=== PATIENT | male | born 1945 | race Caucasian/White ===

== ENCOUNTER 2021-07-27 17:32 | Inpatient (IN) ==
[2021-07-27] MEDS ORDERED: PROMETHAZINE 25 MG/1 ML VIAL IM PRN (22:02)
[2021-07-27] MEDS ORDERED: NICOTINE 21 MG/24 HR PATCH TRANSDERM PRN (22:02)
[2021-07-27] MEDS ORDERED: DOCUSATE SODIUM 100 MG CAPSULE PO PRN (22:02)
[2021-07-27] MEDS ORDERED: GLUCAGON 1 MG VIAL IM PRN (22:02)
[2021-07-27] MEDS ORDERED: hydrALAZINE 20 MG/1 ML VIAL IV PRN (22:02)
[2021-07-27] MEDS ORDERED: MORPHINE 2 MG/1 ML SYRINGE IV PRN (22:02)
[2021-07-27] MEDS ORDERED: diphenhydrAMINE CAP 25 MG CAPSULE PO PRN (22:02)
[2021-07-27] MEDS ORDERED: DEXTROSE 10% 250 ML BAG IV PRN (22:17)
[2021-07-27] MEDS ORDERED: ALBUTEROL INHALER 18 GM INH PRN (22:26)
[2021-07-27 22:43] LABS: Basophils % 0.1 % (0.0-0.8); Hematocrit 36.4 VOL% (42.0-52.0); Hemoglobin 12.3 GM/DL (14.0-18.0); Immature Granulocytes % 0.6 %; Immature Granulocytes Absolute 0.04 #; Lymphocytes # 0.6 10*3/uL (1.4-4.0); Mean Corpuscular HGB Conc 33.8 GM/DL (32-36); Mean Corpuscular Volume 83.5 FL (87-102); Mean Platelet Volume 10.3 FL (9.6-12.0); Monocytes % 3.3 % (1.7-12.7); Platelet Count 235 T/CUMM (130-400); Red Blood Count 4.36 MC/CUMM (3.8-5.5); Red Cell Distribution Width 14.4 % (9.3-17.3); White Blood Count 7.2 T/CUMM (4-12)
[2021-07-27] MEDS: AZITHROMYCIN INJ 500 MG in SODIUM CHLORIDE 0.9% 250 ML IV SCH (23:27)
[2021-07-27] MEDS: HEPARIN 5,000 UNIT/1 ML VIAL SUBCUT SCH (23:29)
[2021-07-27] MEDS: ALBUTEROL INHALER 18 GM INH SCH (23:36)
[2021-07-27 23:40] LABS: Calcium 8.2 MG/DL (8.5-10.1); Potassium 3.8 MMOL/L (3.5-5.1)
[2021-07-27 23:48] LABS: Allen Test Positive
[2021-07-27 23:51] LABS: ABG Base Excess -11.8 MMOL/L (-2.5-2.5); ABG HCO3 15.1 MMOL/L (20-26); ABG Oxygen Saturation 86.6 % (95-100); ABG PCO2 22.9 MM HG (35-48); ABG PH 7.344 (7.35-7.45); ABG PO2 58.5 MM HG (80-95); ABG TCO2 11.2 MMOL/L (23-27)
[2021-07-28 00:06] LABS: Alanine Aminotransferase 25 U/L (16-61); Albumin 2.4 G/DL (3.4-5.0); Alkaline Phosphatase 74 U/L (45-117); Aspartate Amino Transferase 30 U/L (0-37); Bilirubin,Direct < 0.100 MG/DL (0.0-0.20); Bilirubin,Indirect 0.3 MG/DL (0.0-1.0); Bilirubin,Total < 0.39 MG/DL (0.20-1.00); Total Protein 7.1 G/DL (6.4-8.2)
[2021-07-28] MEDS: MEROPENEM 500 MG in SODIUM CHLORIDE 0.9% 100 ML IV SCH ×2 (00:44→01:30)
[2021-07-28] MEDS ORDERED: VANCOMYCIN INJ 1,250 MG in SODIUM CHLORIDE 0.9% 250 ML IV ONE (02:00)
[2021-07-28] MEDS: ALBUTEROL INHALER 18 GM INH SCH ×5 (02:41→19:26)
[2021-07-28 07:11] LABS: Hematocrit 33.9 VOL% (42.0-52.0); Hemoglobin 11.4 GM/DL (14.0-18.0); Immature Granulocytes % 0.8 %; Immature Granulocytes Absolute 0.04 #; Lymphocytes # 0.8 10*3/uL (1.4-4.0); Lymphocytes % 16.1 % (21.2-54.2); Mean Corpuscular HGB Conc 33.6 GM/DL (32-36); Mean Corpuscular Volume 83.7 FL (87-102); Mean Platelet Volume 10.6 FL (9.6-12.0); Monocytes % 5.6 % (1.7-12.7); Neutrophils % 77.5 % (38.7-73.9); Platelet Count 242 T/CUMM (130-400); Red Blood Count 4.05 MC/CUMM (3.8-5.5); Red Cell Distribution Width 14.3 % (9.3-17.3)
[2021-07-28 07:32] LABS: Albumin 2.1 G/DL (3.4-5.0); Bilirubin,Total 1.4 MG/DL (0.20-1.00); Calcium 7.7 MG/DL (8.5-10.1); Potassium 4.2 MMOL/L (3.5-5.1); Total Protein 6.2 G/DL (6.4-8.2)
[2021-07-28] MEDS: DEXAMETHASONE 4 MG/1 ML VIAL IV SCH (10:00)
[2021-07-28] MEDS: HEPARIN 5,000 UNIT/1 ML VIAL SUBCUT SCH ×2 (10:00→22:20)
[2021-07-28] MEDS: CHOLECALCIFEROL 1,000 UNIT TABLET PO SCH (10:01)
[2021-07-28] MEDS: PANTOPRAZOLE 40 MG TABLET PO SCH (10:01)
[2021-07-28] MEDS: ASCORBIC ACID 500 MG TABLET PO SCH ×2 (10:01→22:20)
[2021-07-28] MEDS: ZINC GLUCONATE 50 MG TABLET PO SCH (10:01)
[2021-07-28] MEDS: SODIUM BICARB INJ 50 MEQ in SODIUM CHLORIDE 0.45% 1,000 ML IV SCH ×2 (13:01→22:20)
[2021-07-29] MEDS: ALBUTEROL INHALER 18 GM INH SCH ×7 (00:04→23:06)
[2021-07-29] MEDS: AZITHROMYCIN INJ 500 MG in SODIUM CHLORIDE 0.9% 250 ML IV SCH (00:04)
[2021-07-29] MEDS ORDERED: VANCOMYCIN INJ 1,250 MG in SODIUM CHLORIDE 0.9% 250 ML IV PRN (02:00)
[2021-07-29 02:17] LABS: Bacteria,Urine Occasional /HPF (Few); Bilirubin,Urine Negative (Negative); Blood, Urine Small mg/dL (Negative); Glucose,Urine (UA) Negative (Negative); Hyaline Casts,Urine 1 /LPF (0-3); Ketones,Urine Negative (Negative); Mucus,Urine Occasional /LPF (Occasional); Nitrite,Urine Negative (Negative); Protein,Urine 100 MG/DL; Urine Appearance CLEAR (Clear); Urine Color Yellow (Yellow); Urine Urobilinogen < 2.0 EU/DL (<2.0)
[2021-07-29] MEDS: MEROPENEM 500 MG in SODIUM CHLORIDE 0.9% 100 ML IV SCH (04:13)
[2021-07-29] MEDS: ZINC GLUCONATE 50 MG TABLET PO SCH (08:25)
[2021-07-29] MEDS: DEXAMETHASONE 4 MG/1 ML VIAL IV SCH (08:25)
[2021-07-29] MEDS: ASCORBIC ACID 500 MG TABLET PO SCH ×2 (08:25→21:32)
[2021-07-29 09:07] LABS: Basophils % 0.1 % (0.0-0.8); Hematocrit 33.1 VOL% (42.0-52.0); Hemoglobin 11.2 GM/DL (14.0-18.0); Immature Granulocytes % 0.8 %; Immature Granulocytes Absolute 0.07 #; Lymphocytes # 0.8 10*3/uL (1.4-4.0); Lymphocytes % 9.5 % (21.2-54.2); Mean Corpuscular HGB Conc 33.8 GM/DL (32-36); Mean Platelet Volume 10.9 FL (9.6-12.0); Monocytes % 8.4 % (1.7-12.7); Neutrophils % 81.2 % (38.7-73.9); Platelet Count 284 T/CUMM (130-400); Red Blood Count 3.99 MC/CUMM (3.8-5.5); Red Cell Distribution Width 14.4 % (9.3-17.3); White Blood Count 8.8 T/CUMM (4-12)
[2021-07-29 09:21] LABS: Alanine Aminotransferase 25 U/L (16-61); Albumin 2.1 G/DL (3.4-5.0); Alkaline Phosphatase 68 U/L (45-117); Aspartate Amino Transferase 28 U/L (0-37); Bilirubin,Total < 0.39 MG/DL (0.20-1.00); Blood Urea Nitrogen 104 MG/DL (7-18); Calcium 8.2 MG/DL (8.5-10.1); Carbon Dioxide 18 MMOL/L (21-32); Estimated Glom Filtration Rate 8 ML/MIN; Glucose 120 MG/DL (74-106); Osmolality,Calculated 312.4 MOS/KG (273-304); Potassium 4.1 MMOL/L (3.5-5.1); Sodium 140 MMOL/L (136-145); Total Protein 6.3 G/DL (6.4-8.2)
[2021-07-29] MEDS ORDERED: VANCOMYCIN INJ 1,250 MG in SODIUM CHLORIDE 0.9% 250 ML IV ONE (10:00)
[2021-07-29] MEDS: CHOLECALCIFEROL 1,000 UNIT TABLET PO SCH (10:05)
[2021-07-29] MEDS: HEPARIN 5,000 UNIT/1 ML VIAL SUBCUT SCH ×2 (10:06→21:32)
[2021-07-29] MEDS: PANTOPRAZOLE 40 MG TABLET PO SCH (10:06)
[2021-07-29] MEDS: SODIUM BICARB INJ 50 MEQ in SODIUM CHLORIDE 0.45% 1,000 ML IV SCH (10:58)
[2021-07-29 12:20] LABS: Ferritin 1393.1 ng/mL (26-388)
[2021-07-29] MEDS: FLUTICASONE 50 MCG NASAL SPRAY 16 GM BOTTLE BOTH NARES SCH (21:32)
[2021-07-29] MEDS: ROSUVASTATIN 20 MG TABLET PO SCH (21:32)
[2021-07-30] MEDS: SODIUM BICARB INJ 50 MEQ in SODIUM CHLORIDE 0.45% 1,000 ML IV SCH ×2 (00:40→17:00)
[2021-07-30] MEDS: ALBUTEROL INHALER 18 GM INH SCH ×5 (02:46→18:12)
[2021-07-30] MEDS: MEROPENEM 500 MG in SODIUM CHLORIDE 0.9% 100 ML IV SCH (02:46)
[2021-07-30 05:32] LABS: Basophils % 0.2 % (0.0-0.8); Hematocrit 35.9 VOL% (42.0-52.0); Hemoglobin 12.1 GM/DL (14.0-18.0); Immature Granulocytes % 1.4 %; Immature Granulocytes Absolute 0.15 #; Lymphocytes # 0.7 10*3/uL (1.4-4.0); Lymphocytes % 5.9 % (21.2-54.2); Mean Corpuscular HGB Conc 33.7 GM/DL (32-36); Mean Corpuscular Volume 83.3 FL (87-102); Mean Platelet Volume 11.1 FL (9.6-12.0); Monocytes % 7.4 % (1.7-12.7); Neutrophils % 85.1 % (38.7-73.9); Platelet Count 334 T/CUMM (130-400); Red Blood Count 4.31 MC/CUMM (3.8-5.5); Red Cell Distribution Width 14.3 % (9.3-17.3); White Blood Count 11.1 T/CUMM (4-12)
[2021-07-30 05:57] LABS: Alanine Aminotransferase 33 U/L (16-61); Albumin 1.9 G/DL (3.4-5.0); Alkaline Phosphatase 72 U/L (45-117); Aspartate Amino Transferase 41 U/L (0-37); Bilirubin,Total < 0.39 MG/DL (0.20-1.00); Blood Urea Nitrogen 96 MG/DL (7-18); Calcium 8.1 MG/DL (8.5-10.1); Carbon Dioxide 17 MMOL/L (21-32); Estimated Glom Filtration Rate 9 ML/MIN; Glucose 130 MG/DL (74-106); Osmolality,Calculated 304.8 MOS/KG (273-304); Potassium 3.6 MMOL/L (3.5-5.1); Sodium 137 MMOL/L (136-145); Total Protein 6.1 G/DL (6.4-8.2)
[2021-07-30 05:59] LABS: Ferritin 1535.3 ng/mL (26-388)
[2021-07-30] MEDS: IPRATROPIUM 500 MCG/2.5 ML NEB RESP TX SCH ×2 (08:19→11:24)
[2021-07-30] MEDS ORDERED: CHLORTHALIDONE 25 MG TABLET PO SCH (09:00)
[2021-07-30] MEDS: ZINC GLUCONATE 50 MG TABLET PO SCH (09:42)
[2021-07-30] MEDS: ASPIRIN CHEW 81 MG TABLET PO SCH (09:42)
[2021-07-30] MEDS: amLODIPine 10 MG TABLET PO SCH (09:43)
[2021-07-30] MEDS: CHOLECALCIFEROL 1,000 UNIT TABLET PO SCH (09:43)
[2021-07-30] MEDS: PANTOPRAZOLE 40 MG TABLET PO SCH (09:43)
[2021-07-30] MEDS: ASCORBIC ACID 500 MG TABLET PO SCH ×2 (09:43→21:19)
[2021-07-30] MEDS: HEPARIN 5,000 UNIT/1 ML VIAL SUBCUT SCH ×2 (09:44→21:18)
[2021-07-30] MEDS: DEXAMETHASONE 4 MG/1 ML VIAL IV SCH (09:51)
[2021-07-30] MEDS: FLUTICASONE 50 MCG NASAL SPRAY 16 GM BOTTLE BOTH NARES SCH ×2 (09:53→21:18)
[2021-07-30] MEDS: AZITHROMYCIN 250 MG TABLET PO SCH (15:04)
[2021-07-30] MEDS: cefTRIAXone 1,000 MG in SODIUM CHLORIDE 0.9% 100 ML IV SCH (15:04)
[2021-07-30 15:18] LABS: ABG Base Excess -5.9 MMOL/L (-2.5-2.5); ABG HCO3 19.5 MMOL/L (20-26); ABG Oxygen Saturation 87.7 % (95-100); ABG PCO2 26.2 MM HG (35-48); ABG PH 7.425 (7.35-7.45); ABG PO2 58.4 MM HG (80-95); ABG TCO2 15.4 MMOL/L (23-27)
[2021-07-30] MEDS ORDERED: BARICITINIB 2 MG TABLET PO SCH (16:00)
[2021-07-30] MEDS ORDERED: ALBUTEROL/IPRATROPIUM 3 ML NEB RESP TX ONE (17:06)
[2021-07-30] MEDS: SODIUM CHLORIDE 0.9% 1,000 ML IV SCH (18:25)
[2021-07-30] MEDS: ROSUVASTATIN 20 MG TABLET PO SCH (21:17)
[2021-07-31] MEDS: ALBUTEROL INHALER 18 GM INH SCH ×7 (00:05→23:50)
[2021-07-31 05:45] LABS: Basophils % 0.1 % (0.0-0.8); Hematocrit 34.2 VOL% (42.0-52.0); Hemoglobin 11.6 GM/DL (14.0-18.0); Immature Granulocytes % 1.9 %; Immature Granulocytes Absolute 0.22 #; Lymphocytes # 0.7 10*3/uL (1.4-4.0); Lymphocytes % 5.6 % (21.2-54.2); Mean Corpuscular HGB Conc 33.9 GM/DL (32-36); Mean Corpuscular Volume 83.2 FL (87-102); Mean Platelet Volume 10.4 FL (9.6-12.0); Monocytes % 7.2 % (1.7-12.7); Neutrophils % 85.2 % (38.7-73.9); Platelet Count 347 T/CUMM (130-400); Red Blood Count 4.11 MC/CUMM (3.8-5.5); Red Cell Distribution Width 14.3 % (9.3-17.3); White Blood Count 11.9 T/CUMM (4-12)
[2021-07-31] MEDS: guaiFENesin/DM ER 600-30 MG TABLET PO PRN (06:14)
[2021-07-31 06:44] LABS: Albumin 1.9 G/DL (3.4-5.0); Bilirubin,Total 0.5 MG/DL (0.20-1.00); Calcium 8.2 MG/DL (8.5-10.1); Osmolality,Calculated 311.1 MOS/KG (273-304); Potassium 3.6 MMOL/L (3.5-5.1); Total Protein 6.2 G/DL (6.4-8.2)
[2021-07-31] MEDS: HEPARIN 5,000 UNIT/1 ML VIAL SUBCUT SCH ×2 (09:19→20:19)
[2021-07-31] MEDS: DEXAMETHASONE 4 MG/1 ML VIAL IV SCH (09:20)
[2021-07-31] MEDS: AZITHROMYCIN 250 MG TABLET PO SCH (09:21)
[2021-07-31] MEDS: ASCORBIC ACID 500 MG TABLET PO SCH ×2 (09:21→20:18)
[2021-07-31] MEDS: ASPIRIN CHEW 81 MG TABLET PO SCH (09:21)
[2021-07-31] MEDS: CHOLECALCIFEROL 1,000 UNIT TABLET PO SCH (09:21)
[2021-07-31] MEDS: FLUTICASONE 50 MCG NASAL SPRAY 16 GM BOTTLE BOTH NARES SCH ×2 (09:21→21:18)
[2021-07-31] MEDS: ZINC GLUCONATE 50 MG TABLET PO SCH (09:21)
[2021-07-31] MEDS: SODIUM BICARBONATE 650 MG TABLET PO SCH ×3 (09:21→20:18)
[2021-07-31] MEDS: PANTOPRAZOLE 40 MG TABLET PO SCH (09:22)
[2021-07-31] MEDS: amLODIPine 10 MG TABLET PO SCH (09:22)
[2021-07-31] MEDS: cefTRIAXone 1,000 MG in SODIUM CHLORIDE 0.9% 100 ML IV SCH (09:27)
[2021-07-31] MEDS: SODIUM CHLORIDE 0.9% 1,000 ML IV SCH (18:37)
[2021-07-31] MEDS: ROSUVASTATIN 20 MG TABLET PO SCH (20:18)
[2021-08-01] MEDS: ALBUTEROL INHALER 18 GM INH SCH ×6 (03:15→23:05)
[2021-08-01 05:35] LABS: Basophils % 0.1 % (0.0-0.8); Hematocrit 33.2 VOL% (42.0-52.0); Hemoglobin 11.1 GM/DL (14.0-18.0); Immature Granulocytes % 2.6 %; Immature Granulocytes Absolute 0.32 #; Lymphocytes # 0.9 10*3/uL (1.4-4.0); Lymphocytes % 6.9 % (21.2-54.2); Mean Corpuscular HGB Conc 33.4 GM/DL (32-36); Mean Corpuscular Volume 83.8 FL (87-102); Mean Platelet Volume 10.8 FL (9.6-12.0); Monocytes % 8.5 % (1.7-12.7); Neutrophils % 81.9 % (38.7-73.9); Platelet Count 376 T/CUMM (130-400); Red Blood Count 3.96 MC/CUMM (3.8-5.5); Red Cell Distribution Width 14.4 % (9.3-17.3); White Blood Count 12.3 T/CUMM (4-12)
[2021-08-01 06:15] LABS: Ferritin 1500.7 ng/mL (26-388)
[2021-08-01 06:16] LABS: Alanine Aminotransferase 93 U/L (16-61); Albumin 1.8 G/DL (3.4-5.0); Alkaline Phosphatase 85 U/L (45-117); Aspartate Amino Transferase 62 U/L (0-37); Bilirubin,Total < 0.39 MG/DL (0.20-1.00); Blood Urea Nitrogen 91 MG/DL (7-18); Calcium 8.2 MG/DL (8.5-10.1); Carbon Dioxide 20 MMOL/L (21-32); Estimated Glom Filtration Rate 12 ML/MIN; Glucose 113 MG/DL (74-106); Osmolality,Calculated 311.1 MOS/KG (273-304); Potassium 3.5 MMOL/L (3.5-5.1); Sodium 142 MMOL/L (136-145); Total Protein 5.9 G/DL (6.4-8.2)
[2021-08-01] MEDS: ZINC GLUCONATE 50 MG TABLET PO SCH (08:53)
[2021-08-01] MEDS: ASCORBIC ACID 500 MG TABLET PO SCH ×2 (08:53→20:43)
[2021-08-01] MEDS: ASPIRIN CHEW 81 MG TABLET PO SCH (08:53)
[2021-08-01] MEDS: CHOLECALCIFEROL 1,000 UNIT TABLET PO SCH (08:53)
[2021-08-01] MEDS: HEPARIN 5,000 UNIT/1 ML VIAL SUBCUT SCH ×2 (08:53→20:43)
[2021-08-01] MEDS: SODIUM BICARBONATE 650 MG TABLET PO SCH ×3 (08:53→20:43)
[2021-08-01] MEDS: amLODIPine 10 MG TABLET PO SCH (08:54)
[2021-08-01] MEDS: AZITHROMYCIN 250 MG TABLET PO SCH (08:54)
[2021-08-01] MEDS: PANTOPRAZOLE 40 MG TABLET PO SCH (08:54)
[2021-08-01] MEDS: DEXAMETHASONE 4 MG/1 ML VIAL IV SCH (08:55)
[2021-08-01] MEDS: cefTRIAXone 1,000 MG in SODIUM CHLORIDE 0.9% 100 ML IV SCH (09:11)
[2021-08-01] MEDS: FLUTICASONE 50 MCG NASAL SPRAY 16 GM BOTTLE BOTH NARES SCH ×2 (10:33→20:43)
[2021-08-01] MEDS: SODIUM CHLORIDE 0.9% 1,000 ML IV SCH (11:41)
[2021-08-01] MEDS: CLORAZEPATE 3.75 MG TABLET PO PRN (13:08)
[2021-08-01] MEDS: ROSUVASTATIN 20 MG TABLET PO SCH (20:43)
[2021-08-02] MEDS: CLORAZEPATE 3.75 MG TABLET PO PRN ×2 (00:56→08:58)
[2021-08-02] MEDS: ALBUTEROL INHALER 18 GM INH SCH ×6 (03:28→22:00)
[2021-08-02 06:34] LABS: Basophils % 0.1 % (0.0-0.8); Hematocrit 34.7 VOL% (42.0-52.0); Hemoglobin 11.2 GM/DL (14.0-18.0); Immature Granulocytes % 2.7 %; Immature Granulocytes Absolute 0.38 #; Lymphocytes # 0.9 10*3/uL (1.4-4.0); Lymphocytes % 6.3 % (21.2-54.2); Mean Corpuscular HGB Conc 32.3 GM/DL (32-36); Mean Corpuscular Volume 86.5 FL (87-102); Mean Platelet Volume 11.3 FL (9.6-12.0); Monocytes % 7.3 % (1.7-12.7); Neutrophils % 83.6 % (38.7-73.9); Platelet Count 397 T/CUMM (130-400); Red Blood Count 4.01 MC/CUMM (3.8-5.5); Red Cell Distribution Width 14.5 % (9.3-17.3); White Blood Count 14.1 T/CUMM (4-12)
[2021-08-02 06:53] LABS: Alanine Aminotransferase 105 U/L (16-61); Albumin 1.9 G/DL (3.4-5.0); Alkaline Phosphatase 87 U/L (45-117); Aspartate Amino Transferase 62 U/L (0-37); Bilirubin,Total < 0.39 MG/DL (0.20-1.00); Blood Urea Nitrogen 90 MG/DL (7-18); Carbon Dioxide 23 MMOL/L (21-32); Estimated Glom Filtration Rate 14 ML/MIN; Glucose 100 MG/DL (74-106); Potassium 3.7 MMOL/L (3.5-5.1); Sodium 143 MMOL/L (136-145); Total Protein 6.3 G/DL (6.4-8.2)
[2021-08-02 06:55] LABS: Ferritin 1538.7 ng/mL (26-388)
[2021-08-02] MEDS: HEPARIN 5,000 UNIT/1 ML VIAL SUBCUT SCH ×2 (08:56→20:30)
[2021-08-02] MEDS: ASCORBIC ACID 500 MG TABLET PO SCH ×2 (08:57→20:28)
[2021-08-02] MEDS: CHOLECALCIFEROL 1,000 UNIT TABLET PO SCH (08:57)
[2021-08-02] MEDS: PANTOPRAZOLE 40 MG TABLET PO SCH (08:57)
[2021-08-02] MEDS: SODIUM BICARBONATE 650 MG TABLET PO SCH ×2 (08:57→20:28)
[2021-08-02] MEDS: AZITHROMYCIN 250 MG TABLET PO SCH (08:58)
[2021-08-02] MEDS: ASPIRIN CHEW 81 MG TABLET PO SCH (08:58)
[2021-08-02] MEDS: amLODIPine 10 MG TABLET PO SCH (08:58)
[2021-08-02] MEDS: FLUTICASONE 50 MCG NASAL SPRAY 16 GM BOTTLE BOTH NARES SCH ×2 (08:58→20:28)
[2021-08-02] MEDS: ZINC GLUCONATE 50 MG TABLET PO SCH (08:58)
[2021-08-02] MEDS: DEXAMETHASONE 4 MG/1 ML VIAL IV SCH (08:58)
[2021-08-02] MEDS: cefTRIAXone 1,000 MG in SODIUM CHLORIDE 0.9% 100 ML IV SCH (09:36)
[2021-08-02] MEDS: CLORAZEPATE 3.75 MG TABLET PO SCH ×2 (15:02→20:28)
[2021-08-02] MEDS: SODIUM CHLORIDE 0.9% 1,000 ML IV SCH (15:03)
[2021-08-02] MEDS: ROSUVASTATIN 20 MG TABLET PO SCH (20:28)
[2021-08-02 21:31] LABS: Specimen Source SPUTUM
[2021-08-02] MEDS ORDERED: ALPRAZolam 0.5 MG TABLET PO ONE (23:49)
[2021-08-03] MEDS: ALBUTEROL INHALER 18 GM INH SCH ×7 (00:22→22:13)
[2021-08-03 05:02] LABS: ABG Base Excess -0.7 MMOL/L (-2.5-2.5); ABG HCO3 23.8 MMOL/L (20-26); ABG Oxygen Saturation 94.4 % (95-100); ABG PCO2 36.3 MM HG (35-48); ABG PH 7.418 (7.35-7.45); ABG PO2 80.5 MM HG (80-95); ABG TCO2 20.8 MMOL/L (23-27)
[2021-08-03 05:58] LABS: Basophils % 0.1 % (0.0-0.8); Eosinophils % 0.1 % (0.00-10.9); Hematocrit 31.5 VOL% (42.0-52.0); Hemoglobin 10.2 GM/DL (14.0-18.0); Immature Granulocytes % 3.1 %; Immature Granulocytes Absolute 0.44 #; Lymphocytes # 0.8 10*3/uL (1.4-4.0); Lymphocytes % 5.8 % (21.2-54.2); Mean Corpuscular HGB Conc 32.4 GM/DL (32-36); Mean Platelet Volume 11.2 FL (9.6-12.0); Monocytes % 5.6 % (1.7-12.7); Neutrophils % 85.3 % (38.7-73.9); Platelet Count 404 T/CUMM (130-400); Red Blood Count 3.62 MC/CUMM (3.8-5.5); Red Cell Distribution Width 14.4 % (9.3-17.3); White Blood Count 14.2 T/CUMM (4-12)
[2021-08-03 06:17] LABS: Ferritin 1170.8 ng/mL (26-388)
[2021-08-03 06:32] LABS: Alanine Aminotransferase 86 U/L (16-61); Albumin 1.9 G/DL (3.4-5.0); Alkaline Phosphatase 81 U/L (45-117); Aspartate Amino Transferase 41 U/L (0-37); Bilirubin,Total < 0.39 MG/DL (0.20-1.00); Blood Urea Nitrogen 89 MG/DL (7-18); Calcium 8.3 MG/DL (8.5-10.1); Carbon Dioxide 23 MMOL/L (21-32); Estimated Glom Filtration Rate 16 ML/MIN; Glucose 95 MG/DL (74-106); Osmolality,Calculated 318.4 MOS/KG (273-304); Potassium 4.3 MMOL/L (3.5-5.1); Sodium 147 MMOL/L (136-145); Total Protein 5.5 G/DL (6.4-8.2)
[2021-08-03] MEDS: HEPARIN 5,000 UNIT/1 ML VIAL SUBCUT SCH ×2 (09:12→20:05)
[2021-08-03] MEDS: DEXAMETHASONE 4 MG/1 ML VIAL IV SCH (09:13)
[2021-08-03] MEDS: CHOLECALCIFEROL 1,000 UNIT TABLET PO SCH (09:14)
[2021-08-03] MEDS: SODIUM BICARBONATE 650 MG TABLET PO SCH ×2 (09:14→20:04)
[2021-08-03] MEDS: CLORAZEPATE 3.75 MG TABLET PO SCH ×3 (09:14→20:04)
[2021-08-03] MEDS: cefTRIAXone 1,000 MG in SODIUM CHLORIDE 0.9% 100 ML IV SCH (09:14)
[2021-08-03] MEDS: ASPIRIN CHEW 81 MG TABLET PO SCH (09:15)
[2021-08-03] MEDS: ZINC GLUCONATE 50 MG TABLET PO SCH (09:15)
[2021-08-03] MEDS: amLODIPine 10 MG TABLET PO SCH (09:15)
[2021-08-03] MEDS: FLUTICASONE 50 MCG NASAL SPRAY 16 GM BOTTLE BOTH NARES SCH ×2 (09:15→20:04)
[2021-08-03] MEDS: ASCORBIC ACID 500 MG TABLET PO SCH ×2 (09:15→20:04)
[2021-08-03] MEDS: PANTOPRAZOLE 40 MG TABLET PO SCH (09:15)
[2021-08-03] MEDS: AZITHROMYCIN 250 MG TABLET PO SCH (09:15)
[2021-08-03] MEDS: SODIUM CHLORIDE 0.9% 1,000 ML IV SCH (13:10)
[2021-08-03] MEDS: ROSUVASTATIN 20 MG TABLET PO SCH (20:04)
[2021-08-04] MEDS: ALBUTEROL INHALER 18 GM INH SCH ×6 (02:15→22:25)
[2021-08-04] MEDS: HEPARIN 5,000 UNIT/1 ML VIAL SUBCUT SCH ×2 (09:29→20:07)
[2021-08-04] MEDS: cefTRIAXone 1,000 MG in SODIUM CHLORIDE 0.9% 100 ML IV SCH (09:29)
[2021-08-04] MEDS: DEXAMETHASONE 4 MG/1 ML VIAL IV SCH (09:30)
[2021-08-04] MEDS: ZINC GLUCONATE 50 MG TABLET PO SCH (09:30)
[2021-08-04] MEDS: ASPIRIN CHEW 81 MG TABLET PO SCH (09:30)
[2021-08-04] MEDS: PANTOPRAZOLE 40 MG TABLET PO SCH (09:30)
[2021-08-04] MEDS: ASCORBIC ACID 500 MG TABLET PO SCH ×2 (09:30→20:07)
[2021-08-04] MEDS: SODIUM BICARBONATE 650 MG TABLET PO SCH ×2 (09:30→20:07)
[2021-08-04] MEDS: CHOLECALCIFEROL 1,000 UNIT TABLET PO SCH (09:30)
[2021-08-04] MEDS: amLODIPine 10 MG TABLET PO SCH (09:30)
[2021-08-04] MEDS: CLORAZEPATE 3.75 MG TABLET PO SCH ×3 (09:31→20:06)
[2021-08-04] MEDS: FLUTICASONE 50 MCG NASAL SPRAY 16 GM BOTTLE BOTH NARES SCH ×2 (09:31→20:07)
[2021-08-04] MEDS: SODIUM CHLORIDE 0.9% 1,000 ML IV SCH (11:34)
[2021-08-04] MEDS: ROSUVASTATIN 20 MG TABLET PO SCH (20:06)
[2021-08-05] MEDS: ALBUTEROL INHALER 18 GM INH SCH ×6 (02:25→22:30)
[2021-08-05] MEDS: guaiFENesin/DM ER 600-30 MG TABLET PO PRN ×2 (02:25→20:09)
[2021-08-05] MEDS: BENZONATATE 100 MG CAPSULE PO PRN (02:25)
[2021-08-05 05:57] LABS: Basophils % 0.1 % (0.0-0.8); Eosinophils % 0.2 % (0.00-10.9); Hematocrit 34.3 VOL% (42.0-52.0); Hemoglobin 10.9 GM/DL (14.0-18.0); Immature Granulocytes Absolute 0.54 #; Lymphocytes # 0.8 10*3/uL (1.4-4.0); Lymphocytes % 4.4 % (21.2-54.2); Mean Corpuscular HGB Conc 31.8 GM/DL (32-36); Mean Corpuscular Volume 87.9 FL (87-102); Mean Platelet Volume 11.3 FL (9.6-12.0); Monocytes % 5.3 % (1.7-12.7); Platelet Count 511 T/CUMM (130-400); Red Cell Distribution Width 14.2 % (9.3-17.3); White Blood Count 17.8 T/CUMM (4-12)
[2021-08-05 06:25] LABS: Calcium 8.5 MG/DL (8.5-10.1); Osmolality,Calculated 314.7 MOS/KG (273-304); Potassium 4.2 MMOL/L (3.5-5.1)
[2021-08-05 06:38] LABS: Hypochromia Slight; Lymphocytes 6 % (20-55); Microcytosis Slight; Platelet Estimate Adequate; Segmented Neutrophils 89 % (50-85); Total Cells Counted 100
[2021-08-05] MEDS: ASCORBIC ACID 500 MG TABLET PO SCH ×2 (08:06→20:09)
[2021-08-05] MEDS: CLORAZEPATE 3.75 MG TABLET PO SCH (08:06)
[2021-08-05] MEDS: ZINC GLUCONATE 50 MG TABLET PO SCH (08:06)
[2021-08-05] MEDS: PANTOPRAZOLE 40 MG TABLET PO SCH (08:06)
[2021-08-05] MEDS: ASPIRIN CHEW 81 MG TABLET PO SCH (08:07)
[2021-08-05] MEDS: CHOLECALCIFEROL 1,000 UNIT TABLET PO SCH (08:07)
[2021-08-05] MEDS: DEXAMETHASONE 4 MG/1 ML VIAL IV SCH (08:07)
[2021-08-05] MEDS: SODIUM BICARBONATE 650 MG TABLET PO SCH ×2 (08:07→20:11)
[2021-08-05] MEDS: amLODIPine 10 MG TABLET PO SCH (08:08)
[2021-08-05] MEDS: HEPARIN 5,000 UNIT/1 ML VIAL SUBCUT SCH ×2 (08:15→20:10)
[2021-08-05] MEDS: cefTRIAXone 1,000 MG in SODIUM CHLORIDE 0.9% 100 ML IV SCH (08:16)
[2021-08-05] MEDS: FLUTICASONE 50 MCG NASAL SPRAY 16 GM BOTTLE BOTH NARES SCH ×2 (10:37→20:10)
[2021-08-05] MEDS: SODIUM CHLORIDE 0.9% 1,000 ML IV SCH (16:31)
[2021-08-05] MEDS: ROSUVASTATIN 20 MG TABLET PO SCH (20:09)
[2021-08-06] MEDS: ALBUTEROL INHALER 18 GM INH SCH ×5 (02:42→18:39)
[2021-08-06 05:18] LABS: Basophils % 0.1 % (0.0-0.8); Eosinophils % 0.1 % (0.00-10.9); Hematocrit 31.9 VOL% (42.0-52.0); Hemoglobin 10.4 GM/DL (14.0-18.0); Immature Granulocytes % 2.7 %; Immature Granulocytes Absolute 0.37 #; Lymphocytes # 0.7 10*3/uL (1.4-4.0); Lymphocytes % 5.1 % (21.2-54.2); Mean Corpuscular HGB Conc 32.6 GM/DL (32-36); Mean Corpuscular Volume 87.4 FL (87-102); Mean Platelet Volume 10.9 FL (9.6-12.0); Platelet Count 481 T/CUMM (130-400); Red Blood Count 3.65 MC/CUMM (3.8-5.5); Red Cell Distribution Width 14.1 % (9.3-17.3); White Blood Count 13.7 T/CUMM (4-12)
[2021-08-06 05:56] LABS: Calcium 8.5 MG/DL (8.5-10.1); Osmolality,Calculated 316.6 MOS/KG (273-304); Potassium 4.3 MMOL/L (3.5-5.1)
[2021-08-06] MEDS: SODIUM CHLORIDE 0.9% 1,000 ML IV SCH (06:18)
[2021-08-06] MEDS ORDERED: DEXAMETHASONE 4 MG/1 ML VIAL IV ONE (11:00)
[2021-08-06] MEDS: DEXAMETHASONE 4 MG/1 ML VIAL IV SCH (11:01)
[2021-08-06] MEDS: ASCORBIC ACID 500 MG TABLET PO SCH ×2 (11:03→20:58)
[2021-08-06] MEDS: SODIUM BICARBONATE 650 MG TABLET PO SCH ×2 (11:03→20:58)
[2021-08-06] MEDS: CHOLECALCIFEROL 1,000 UNIT TABLET PO SCH (11:04)
[2021-08-06] MEDS: PANTOPRAZOLE 40 MG TABLET PO SCH (11:04)
[2021-08-06] MEDS: ZINC GLUCONATE 50 MG TABLET PO SCH (11:04)
[2021-08-06] MEDS: amLODIPine 10 MG TABLET PO SCH (11:04)
[2021-08-06] MEDS: ASPIRIN CHEW 81 MG TABLET PO SCH (11:04)
[2021-08-06] MEDS: HEPARIN 5,000 UNIT/1 ML VIAL SUBCUT SCH ×2 (11:05→20:59)
[2021-08-06] MEDS: FLUTICASONE 50 MCG NASAL SPRAY 16 GM BOTTLE BOTH NARES SCH ×2 (11:05→20:59)
[2021-08-06] MEDS: cefTRIAXone 1,000 MG in SODIUM CHLORIDE 0.9% 100 ML IV SCH (11:07)
[2021-08-06] MEDS: DOCUSATE SODIUM 100 MG CAPSULE PO SCH ×2 (12:35→20:58)
[2021-08-06] MEDS ORDERED: BISACODYL 5 MG TABLET PO ONE (18:24)
[2021-08-06] MEDS: ROSUVASTATIN 20 MG TABLET PO SCH (20:58)
[2021-08-07] MEDS: ALBUTEROL INHALER 18 GM INH SCH ×6 (00:51→20:00)
[2021-08-07] MEDS: POLYETHYLENE GLYCOL POWDER 17 GM PACK PO SCH ×2 (02:45→09:41)
[2021-08-07 05:30] LABS: Basophils % 0.1 % (0.0-0.8); Hematocrit 29.9 VOL% (42.0-52.0); Hemoglobin 9.8 GM/DL (14.0-18.0); Immature Granulocytes % 2.6 %; Immature Granulocytes Absolute 0.36 #; Lymphocytes # 0.7 10*3/uL (1.4-4.0); Lymphocytes % 4.9 % (21.2-54.2); Mean Corpuscular HGB Conc 32.8 GM/DL (32-36); Mean Corpuscular Volume 87.2 FL (87-102); Mean Platelet Volume 11.4 FL (9.6-12.0); Monocytes % 5.1 % (1.7-12.7); Neutrophils % 87.3 % (38.7-73.9); Platelet Count 433 T/CUMM (130-400); Red Blood Count 3.43 MC/CUMM (3.8-5.5); Red Cell Distribution Width 13.8 % (9.3-17.3); White Blood Count 13.6 T/CUMM (4-12)
[2021-08-07 05:52] LABS: Calcium 8.4 MG/DL (8.5-10.1); Osmolality,Calculated 313.8 MOS/KG (273-304); Potassium 4.2 MMOL/L (3.5-5.1)
[2021-08-07 05:53] LABS: Hypochromia 1+; Lymphocytes 4 % (20-55); Microcytosis 1+; Platelet Estimate Adequate; Segmented Neutrophils 93 % (50-85); Total Cells Counted 100
[2021-08-07] MEDS: HEPARIN 5,000 UNIT/1 ML VIAL SUBCUT SCH ×2 (09:39→20:35)
[2021-08-07] MEDS: ZINC GLUCONATE 50 MG TABLET PO SCH (09:40)
[2021-08-07] MEDS: ASPIRIN CHEW 81 MG TABLET PO SCH (09:40)
[2021-08-07] MEDS: PANTOPRAZOLE 40 MG TABLET PO SCH (09:40)
[2021-08-07] MEDS: ASCORBIC ACID 500 MG TABLET PO SCH ×2 (09:40→20:29)
[2021-08-07] MEDS: CHOLECALCIFEROL 1,000 UNIT TABLET PO SCH (09:40)
[2021-08-07] MEDS: predniSONE 20 MG TABLET PO SCH (09:40)
[2021-08-07] MEDS: amLODIPine 10 MG TABLET PO SCH (09:40)
[2021-08-07] MEDS: SODIUM BICARBONATE 650 MG TABLET PO SCH ×2 (09:40→20:29)
[2021-08-07] MEDS: FLUTICASONE 50 MCG NASAL SPRAY 16 GM BOTTLE BOTH NARES SCH ×2 (09:42→20:32)
[2021-08-07] MEDS: DOCUSATE SODIUM 100 MG CAPSULE PO SCH ×2 (09:44→20:29)
[2021-08-07] MEDS ORDERED: POLYETHYLENE GLYCOL POWDER 17 GM PACK PO SCH (11:35)
[2021-08-07] MEDS: ROSUVASTATIN 20 MG TABLET PO SCH (20:29)
[2021-08-08] MEDS: SODIUM CHLORIDE 0.9% 1,000 ML IV SCH (00:31)
[2021-08-08] MEDS: ALBUTEROL INHALER 18 GM INH SCH ×4 (04:00→10:23)
[2021-08-08 05:25] LABS: Basophils % 0.1 % (0.0-0.8); Eosinophils % 0.1 % (0.00-10.9); Hematocrit 30.7 VOL% (42.0-52.0); Hemoglobin 9.9 GM/DL (14.0-18.0); Immature Granulocytes % 2.5 %; Immature Granulocytes Absolute 0.34 #; Lymphocytes # 0.9 10*3/uL (1.4-4.0); Lymphocytes % 6.7 % (21.2-54.2); Mean Corpuscular HGB Conc 32.2 GM/DL (32-36); Mean Corpuscular Volume 87.2 FL (87-102); Mean Platelet Volume 11.1 FL (9.6-12.0); Monocytes % 5.5 % (1.7-12.7); Neutrophils % 85.1 % (38.7-73.9); Platelet Count 436 T/CUMM (130-400); Red Blood Count 3.52 MC/CUMM (3.8-5.5); Red Cell Distribution Width 13.7 % (9.3-17.3); White Blood Count 13.6 T/CUMM (4-12)
[2021-08-08 05:59] LABS: Calcium 8.8 MG/DL (8.5-10.1); Osmolality,Calculated 304.3 MOS/KG (273-304); Potassium 4.6 MMOL/L (3.5-5.1)
[2021-08-08] MEDS: POLYETHYLENE GLYCOL POWDER 17 GM PACK PO SCH (10:10)
[2021-08-08] MEDS: HEPARIN 5,000 UNIT/1 ML VIAL SUBCUT SCH ×2 (10:11→21:00)
[2021-08-08] MEDS: CHOLECALCIFEROL 1,000 UNIT TABLET PO SCH (10:11)
[2021-08-08] MEDS: SODIUM BICARBONATE 650 MG TABLET PO SCH ×2 (10:11→21:04)
[2021-08-08] MEDS: ZINC GLUCONATE 50 MG TABLET PO SCH (10:11)
[2021-08-08] MEDS: ASCORBIC ACID 500 MG TABLET PO SCH ×2 (10:11→21:05)
[2021-08-08] MEDS: ASPIRIN CHEW 81 MG TABLET PO SCH (10:12)
[2021-08-08] MEDS: PANTOPRAZOLE 40 MG TABLET PO SCH (10:12)
[2021-08-08] MEDS: DOCUSATE SODIUM 100 MG CAPSULE PO SCH ×2 (10:12→21:04)
[2021-08-08] MEDS: FLUTICASONE 50 MCG NASAL SPRAY 16 GM BOTTLE BOTH NARES SCH ×2 (10:12→21:05)
[2021-08-08] MEDS: predniSONE 20 MG TABLET PO SCH (10:12)
[2021-08-08] MEDS: amLODIPine 10 MG TABLET PO SCH (10:22)
[2021-08-08] MEDS ORDERED: LACTULOSE 20 GM/30 ML UDCUP PO PRN (13:32)
[2021-08-08] MEDS: ALBUTEROL/IPRATROPIUM 3 ML NEB RESP TX SCH ×3 (18:18→23:42)
[2021-08-08] MEDS: BUDESONIDE 0.25 MG/2 ML NEB RESP TX SCH (19:22)
[2021-08-08] MEDS: ROSUVASTATIN 20 MG TABLET PO SCH (21:04)
[2021-08-09] MEDS: ALBUTEROL/IPRATROPIUM 3 ML NEB RESP TX SCH ×5 (03:42→18:06)
[2021-08-09 04:32] LABS: Basophils % 0.1 % (0.0-0.8); Eosinophils % 0.2 % (0.00-10.9); Hematocrit 30.8 VOL% (42.0-52.0); Immature Granulocytes % 2.5 %; Immature Granulocytes Absolute 0.35 #; Lymphocytes % 6.9 % (21.2-54.2); Mean Corpuscular HGB Conc 32.5 GM/DL (32-36); Mean Corpuscular Volume 86.8 FL (87-102); Mean Platelet Volume 10.6 FL (9.6-12.0); Monocytes % 5.7 % (1.7-12.7); Neutrophils % 84.6 % (38.7-73.9); Platelet Count 441 T/CUMM (130-400); Red Blood Count 3.55 MC/CUMM (3.8-5.5); Red Cell Distribution Width 13.4 % (9.3-17.3); White Blood Count 13.9 T/CUMM (4-12)
[2021-08-09 05:18] LABS: Calcium 8.6 MG/DL (8.5-10.1); Osmolality,Calculated 304.3 MOS/KG (273-304); Potassium 4.6 MMOL/L (3.5-5.1)
[2021-08-09] MEDS ORDERED: PROMETHAZINE 25 MG/1 ML VIAL IM ONE (07:00)
[2021-08-09] MEDS ORDERED: MEPERIDINE 50 MG/1 ML VIAL IV ONE (07:00)
[2021-08-09] MEDS: BUDESONIDE 0.25 MG/2 ML NEB RESP TX SCH ×2 (07:25→18:06)
[2021-08-09] MEDS ORDERED: LIDOCAINE 2% VISCOUS 100 ML BOTTLE SWISH/SPIT ONE (07:30)
[2021-08-09] MEDS ORDERED: LIDOCAINE 1% 20 ML VIAL MISC INJ ONE (07:30)
[2021-08-09] MEDS ORDERED: MIDAZOLAM 2 MG/2 ML VIAL IV ONE (07:30)
[2021-08-09] MEDS ORDERED: LIDOCAINE 2% 20 ML VIAL RESP TX ONE (07:30)
[2021-08-09] MEDS: HEPARIN 5,000 UNIT/1 ML VIAL SUBCUT SCH ×2 (10:30→21:37)
[2021-08-09] MEDS: ASPIRIN CHEW 81 MG TABLET PO SCH (10:31)
[2021-08-09] MEDS: ASCORBIC ACID 500 MG TABLET PO SCH ×2 (10:31→21:06)
[2021-08-09] MEDS: CHOLECALCIFEROL 1,000 UNIT TABLET PO SCH (10:31)
[2021-08-09] MEDS: TAMSULOSIN 0.4 MG CAPSULE PO SCH (10:31)
[2021-08-09] MEDS: FLUTICASONE 50 MCG NASAL SPRAY 16 GM BOTTLE BOTH NARES SCH ×2 (10:32→21:07)
[2021-08-09] MEDS: ZINC GLUCONATE 50 MG TABLET PO SCH (10:32)
[2021-08-09] MEDS: SODIUM BICARBONATE 650 MG TABLET PO SCH ×2 (10:32→21:06)
[2021-08-09] MEDS: predniSONE 20 MG TABLET PO SCH (10:32)
[2021-08-09] MEDS: PANTOPRAZOLE 40 MG TABLET PO SCH (10:32)
[2021-08-09] MEDS: DOCUSATE SODIUM 100 MG CAPSULE PO SCH ×2 (10:32→21:06)
[2021-08-09] MEDS: POLYETHYLENE GLYCOL POWDER 17 GM PACK PO SCH (10:33)
[2021-08-09] MEDS: amLODIPine 10 MG TABLET PO SCH (10:33)
[2021-08-09] MEDS: MEROPENEM 500 MG in SODIUM CHLORIDE 0.9% 100 ML IV SCH (18:41)
[2021-08-09] MEDS: ROSUVASTATIN 20 MG TABLET PO SCH (21:07)
[2021-08-10 04:44] LABS: Basophils % 0.1 % (0.0-0.8); Hematocrit 28.6 VOL% (42.0-52.0); Hemoglobin 9.2 GM/DL (14.0-18.0); Immature Granulocytes Absolute 0.25 #; Lymphocytes # 0.8 10*3/uL (1.4-4.0); Mean Corpuscular HGB Conc 32.2 GM/DL (32-36); Mean Corpuscular Volume 88.3 FL (87-102); Neutrophils % 86.9 % (38.7-73.9); Platelet Count 398 T/CUMM (130-400); Red Blood Count 3.24 MC/CUMM (3.8-5.5); Red Cell Distribution Width 13.6 % (9.3-17.3); White Blood Count 12.5 T/CUMM (4-12)
[2021-08-10] MEDS: ALBUTEROL/IPRATROPIUM 3 ML NEB RESP TX SCH ×6 (04:47→23:55)
[2021-08-10 05:09] LABS: Calcium 8.6 MG/DL (8.5-10.1); Osmolality,Calculated 302.5 MOS/KG (273-304); Potassium 5.5 MMOL/L (3.5-5.1)
[2021-08-10] MEDS: MEROPENEM 500 MG in SODIUM CHLORIDE 0.9% 100 ML IV SCH ×2 (06:06→17:30)
[2021-08-10] MEDS: BUDESONIDE 0.25 MG/2 ML NEB RESP TX SCH ×2 (06:57→19:50)
[2021-08-10] MEDS: HEPARIN 5,000 UNIT/1 ML VIAL SUBCUT SCH (09:53)
[2021-08-10] MEDS: ASPIRIN CHEW 81 MG TABLET PO SCH (09:53)
[2021-08-10] MEDS: SODIUM BICARBONATE 650 MG TABLET PO SCH ×2 (09:53→21:38)
[2021-08-10] MEDS: POLYETHYLENE GLYCOL POWDER 17 GM PACK PO SCH (09:54)
[2021-08-10] MEDS: predniSONE 20 MG TABLET PO SCH (09:54)
[2021-08-10] MEDS: TAMSULOSIN 0.4 MG CAPSULE PO SCH (09:54)
[2021-08-10] MEDS: PANTOPRAZOLE 40 MG TABLET PO SCH (09:54)
[2021-08-10] MEDS: amLODIPine 10 MG TABLET PO SCH (09:54)
[2021-08-10] MEDS: DOCUSATE SODIUM 100 MG CAPSULE PO SCH ×2 (09:54→21:38)
[2021-08-10] MEDS: ZINC GLUCONATE 50 MG TABLET PO SCH (09:54)
[2021-08-10] MEDS: ASCORBIC ACID 500 MG TABLET PO SCH ×2 (09:54→21:38)
[2021-08-10] MEDS: CHOLECALCIFEROL 1,000 UNIT TABLET PO SCH (09:54)
[2021-08-10] MEDS: FLUTICASONE 50 MCG NASAL SPRAY 16 GM BOTTLE BOTH NARES SCH ×2 (09:55→21:38)
[2021-08-10] MEDS: SODIUM ZIRCONIUM CYCLOSILICATE 10 GM PACK PO SCH (12:13)
[2021-08-10] MEDS: HEPARIN DRIP 25,000 UNITS/500 ML PREMIX IV SCH (18:12)
[2021-08-10] MEDS: ROSUVASTATIN 20 MG TABLET PO SCH (21:38)
[2021-08-10] MEDS: ITRACONAZOLE 100 MG CAPSULE PO SCH (21:38)
[2021-08-10] MEDS: ACETAMINOPHEN 325 MG TABLET PO PRN (23:44)
[2021-08-11 03:24] LABS: Basophils % 0.2 % (0.0-0.8); Eosinophils # 0.1 10*3/uL (0.0-0.87); Eosinophils % 0.7 % (0.00-10.9); Hematocrit 25.1 VOL% (42.0-52.0); Hemoglobin 8.2 GM/DL (14.0-18.0); Immature Granulocytes % 2.6 %; Immature Granulocytes Absolute 0.33 #; Lymphocytes # 0.8 10*3/uL (1.4-4.0); Lymphocytes % 6.6 % (21.2-54.2); Mean Corpuscular HGB Conc 32.7 GM/DL (32-36); Mean Corpuscular Volume 88.4 FL (87-102); Mean Platelet Volume 10.5 FL (9.6-12.0); Monocytes % 6.9 % (1.7-12.7); Platelet Count 326 T/CUMM (130-400); Red Blood Count 2.84 MC/CUMM (3.8-5.5); Red Cell Distribution Width 13.3 % (9.3-17.3); White Blood Count 12.5 T/CUMM (4-12)
[2021-08-11] MEDS: ALBUTEROL/IPRATROPIUM 3 ML NEB RESP TX SCH ×6 (03:31→23:15)
[2021-08-11 03:43] LABS: Osmolality,Calculated 304.1 MOS/KG (273-304); Potassium 4.2 MMOL/L (3.5-5.1)
[2021-08-11] MEDS: BUDESONIDE 0.25 MG/2 ML NEB RESP TX SCH ×2 (07:17→20:00)
[2021-08-11] MEDS ORDERED: FUROSEMIDE 40 MG/4 ML VIAL IV ONE (09:12)
[2021-08-11] MEDS: ASPIRIN CHEW 81 MG TABLET PO SCH (10:15)
[2021-08-11] MEDS: CHOLECALCIFEROL 1,000 UNIT TABLET PO SCH (10:15)
[2021-08-11] MEDS: ITRACONAZOLE 100 MG CAPSULE PO SCH ×2 (10:15→21:31)
[2021-08-11] MEDS: DOCUSATE SODIUM 100 MG CAPSULE PO SCH ×2 (10:15→21:30)
[2021-08-11] MEDS: ZINC GLUCONATE 50 MG TABLET PO SCH (10:15)
[2021-08-11] MEDS: ASCORBIC ACID 500 MG TABLET PO SCH ×2 (10:15→21:31)
[2021-08-11] MEDS: SODIUM BICARBONATE 650 MG TABLET PO SCH ×2 (10:15→21:31)
[2021-08-11] MEDS: PANTOPRAZOLE 40 MG TABLET PO SCH (10:16)
[2021-08-11] MEDS: amLODIPine 10 MG TABLET PO SCH (10:16)
[2021-08-11] MEDS: predniSONE 20 MG TABLET PO SCH (10:16)
[2021-08-11] MEDS: POLYETHYLENE GLYCOL POWDER 17 GM PACK PO SCH (10:17)
[2021-08-11] MEDS: FLUTICASONE 50 MCG NASAL SPRAY 16 GM BOTTLE BOTH NARES SCH ×2 (10:17→21:31)
[2021-08-11] MEDS: SODIUM ZIRCONIUM CYCLOSILICATE 10 GM PACK PO SCH (10:17)
[2021-08-11] MEDS: MEROPENEM 500 MG in SODIUM CHLORIDE 0.9% 100 ML IV SCH ×2 (10:19→21:31)
[2021-08-11] MEDS: HEPARIN DRIP 25,000 UNITS/500 ML PREMIX IV SCH (14:23)
[2021-08-11] MEDS: ROSUVASTATIN 20 MG TABLET PO SCH (21:31)
[2021-08-12] MEDS: ALBUTEROL/IPRATROPIUM 3 ML NEB RESP TX SCH ×5 (03:33→20:25)
[2021-08-12 03:58] LABS: Basophils % 0.1 % (0.0-0.8); Eosinophils % 0.2 % (0.00-10.9); Hematocrit 26.9 VOL% (42.0-52.0); Hemoglobin 8.7 GM/DL (14.0-18.0); Immature Granulocytes % 3.1 %; Immature Granulocytes Absolute 0.38 #; Lymphocytes % 8.2 % (21.2-54.2); Mean Corpuscular HGB Conc 32.3 GM/DL (32-36); Mean Corpuscular Volume 87.6 FL (87-102); Mean Platelet Volume 10.8 FL (9.6-12.0); Monocytes % 6.6 % (1.7-12.7); Neutrophils % 81.8 % (38.7-73.9); Platelet Count 336 T/CUMM (130-400); Red Blood Count 3.07 MC/CUMM (3.8-5.5); Red Cell Distribution Width 13.5 % (9.3-17.3); White Blood Count 12.2 T/CUMM (4-12)
[2021-08-12 04:09] LABS: Calcium 8.3 MG/DL (8.5-10.1); Osmolality,Calculated 298.5 MOS/KG (273-304)
[2021-08-12] MEDS: ACETAMINOPHEN 325 MG TABLET PO PRN (04:28)
[2021-08-12] MEDS: BUDESONIDE 0.25 MG/2 ML NEB RESP TX SCH ×2 (07:10→20:25)
[2021-08-12] MEDS ORDERED: POLYETHYLENE GLYCOL POWDER 17 GM PACK PO PRN (08:43)
[2021-08-12 08:50] LABS: ABG Base Excess 2.6 MMOL/L (-2.5-2.5); ABG HCO3 26.5 MMOL/L (20-26); ABG Oxygen Saturation 82.9 % (95-100); ABG PCO2 37.4 MM HG (35-48); ABG PH 7.457 (7.35-7.45); ABG PO2 47.3 MM HG (80-95); ABG TCO2 24.3 MMOL/L (23-27); Pt O2 Delivery Device Other
[2021-08-12 09:18] LABS: ABG Base Excess 1.7 MMOL/L (-2.5-2.5); ABG HCO3 25.2 MMOL/L (20-26); ABG Oxygen Saturation 82.5 % (95-100); ABG PCO2 35.2 MM HG (35-48); ABG PH 7.472 (7.35-7.45); ABG PO2 43.9 MM HG (80-95); ABG TCO2 26.2 MMOL/L (23-27); Pt O2 Delivery Device Other
[2021-08-12] MEDS: SODIUM ZIRCONIUM CYCLOSILICATE 10 GM PACK PO SCH (09:47)
[2021-08-12] MEDS: ITRACONAZOLE 100 MG CAPSULE PO SCH ×2 (09:47→21:53)
[2021-08-12] MEDS: ASPIRIN CHEW 81 MG TABLET PO SCH (09:48)
[2021-08-12] MEDS: predniSONE 20 MG TABLET PO SCH (09:49)
[2021-08-12] MEDS: amLODIPine 10 MG TABLET PO SCH (09:49)
[2021-08-12] MEDS: ASCORBIC ACID 500 MG TABLET PO SCH ×2 (09:49→21:53)
[2021-08-12] MEDS: ZINC GLUCONATE 50 MG TABLET PO SCH (09:49)
[2021-08-12] MEDS: CHOLECALCIFEROL 1,000 UNIT TABLET PO SCH (09:49)
[2021-08-12] MEDS: DOCUSATE SODIUM 100 MG CAPSULE PO SCH ×2 (09:49→21:52)
[2021-08-12] MEDS: PANTOPRAZOLE 40 MG TABLET PO SCH (09:49)
[2021-08-12] MEDS: MEROPENEM 500 MG in SODIUM CHLORIDE 0.9% 100 ML IV SCH ×2 (09:50→21:53)
[2021-08-12] MEDS: FLUTICASONE 50 MCG NASAL SPRAY 16 GM BOTTLE BOTH NARES SCH ×2 (09:50→21:52)
[2021-08-12] MEDS: SODIUM BICARBONATE 650 MG TABLET PO SCH (10:25)
[2021-08-12] MEDS ORDERED: FUROSEMIDE 40 MG/4 ML VIAL IV ONE (14:56)
[2021-08-12] MEDS: HEPARIN DRIP 25,000 UNITS/500 ML PREMIX IV SCH (16:45)
[2021-08-12] MEDS: ROSUVASTATIN 20 MG TABLET PO SCH (21:52)
[2021-08-13] MEDS: ALBUTEROL/IPRATROPIUM 3 ML NEB RESP TX SCH ×7 (00:04→23:20)
[2021-08-13] MEDS: ACETAMINOPHEN 325 MG TABLET PO PRN ×2 (00:46→13:01)
[2021-08-13 03:17] LABS: Eosinophils % 0.1 % (0.00-10.9); Hematocrit 23.5 VOL% (42.0-52.0); Hemoglobin 7.6 GM/DL (14.0-18.0); Immature Granulocytes % 4.4 %; Immature Granulocytes Absolute 0.45 #; Lymphocytes # 0.8 10*3/uL (1.4-4.0); Lymphocytes % 7.8 % (21.2-54.2); Mean Corpuscular HGB Conc 32.3 GM/DL (32-36); Mean Corpuscular Volume 87.4 FL (87-102); Mean Platelet Volume 10.4 FL (9.6-12.0); Monocytes % 6.1 % (1.7-12.7); Neutrophils % 81.6 % (38.7-73.9); Platelet Count 256 T/CUMM (130-400); Red Blood Count 2.69 MC/CUMM (3.8-5.5); Red Cell Distribution Width 13.4 % (9.3-17.3); White Blood Count 10.2 T/CUMM (4-12)
[2021-08-13 03:48] LABS: Calcium 7.8 MG/DL (8.5-10.1); Osmolality,Calculated 291.8 MOS/KG (273-304); Potassium 3.7 MMOL/L (3.5-5.1)
[2021-08-13] MEDS: BUDESONIDE 0.25 MG/2 ML NEB RESP TX SCH ×2 (07:30→19:10)
[2021-08-13] MEDS: ASCORBIC ACID 500 MG TABLET PO SCH ×2 (09:18→22:20)
[2021-08-13] MEDS: PANTOPRAZOLE 40 MG TABLET PO SCH (09:18)
[2021-08-13] MEDS: DOCUSATE SODIUM 100 MG CAPSULE PO SCH ×2 (09:18→22:20)
[2021-08-13] MEDS: ASPIRIN CHEW 81 MG TABLET PO SCH (09:18)
[2021-08-13] MEDS: ZINC GLUCONATE 50 MG TABLET PO SCH (09:18)
[2021-08-13] MEDS: MEROPENEM 500 MG in SODIUM CHLORIDE 0.9% 100 ML IV SCH ×2 (09:18→22:20)
[2021-08-13] MEDS: predniSONE 20 MG TABLET PO SCH (09:19)
[2021-08-13] MEDS: FLUTICASONE 50 MCG NASAL SPRAY 16 GM BOTTLE BOTH NARES SCH ×2 (09:19→22:20)
[2021-08-13] MEDS: CHOLECALCIFEROL 1,000 UNIT TABLET PO SCH (09:19)
[2021-08-13] MEDS: amLODIPine 10 MG TABLET PO SCH (09:19)
[2021-08-13] MEDS: ITRACONAZOLE 100 MG CAPSULE PO SCH ×2 (09:22→22:20)
[2021-08-13] MEDS: HEPARIN DRIP 25,000 UNITS/500 ML PREMIX IV SCH (17:05)
[2021-08-13] MEDS: ROSUVASTATIN 20 MG TABLET PO SCH (22:20)
[2021-08-14] MEDS: CLORAZEPATE 3.75 MG TABLET PO PRN ×2 (00:09→22:03)
[2021-08-14] MEDS: ALBUTEROL/IPRATROPIUM 3 ML NEB RESP TX SCH ×5 (03:32→20:00)
[2021-08-14 03:45] LABS: Basophils % 0.1 % (0.0-0.8); Eosinophils % 0.2 % (0.00-10.9); Hematocrit 22.2 VOL% (42.0-52.0); Hemoglobin 7.4 GM/DL (14.0-18.0); Immature Granulocytes % 5.3 %; Immature Granulocytes Absolute 0.74 #; Lymphocytes # 1.3 10*3/uL (1.4-4.0); Lymphocytes % 9.4 % (21.2-54.2); Mean Corpuscular HGB Conc 33.3 GM/DL (32-36); Mean Corpuscular Volume 86.7 FL (87-102); Mean Platelet Volume 10.6 FL (9.6-12.0); Monocytes % 7.6 % (1.7-12.7); Neutrophils % 77.4 % (38.7-73.9); Platelet Count 266 T/CUMM (130-400); Red Blood Count 2.56 MC/CUMM (3.8-5.5); Red Cell Distribution Width 13.5 % (9.3-17.3); White Blood Count 13.9 T/CUMM (4-12)
[2021-08-14 04:04] LABS: Lymphocytes 10 % (20-55); Metamyelocytes 1 %; Myelocytes 1 %; Segmented Neutrophils 85 % (50-85); Total Cells Counted 100
[2021-08-14 04:05] LABS: Hypochromia 1+
[2021-08-14 04:06] LABS: Microcytosis 1+; Ovalocytes Slight
[2021-08-14 04:09] LABS: Calcium 7.7 MG/DL (8.5-10.1); Osmolality,Calculated 295.5 MOS/KG (273-304); Potassium 3.6 MMOL/L (3.5-5.1)
[2021-08-14] MEDS ORDERED: ALUM/MAG/SIMETH/LIDO VISC 1:1 30 ML BOTTLE PO ONE (05:47)
[2021-08-14] MEDS: BUDESONIDE 0.25 MG/2 ML NEB RESP TX SCH ×2 (07:07→19:50)
[2021-08-14] MEDS: ITRACONAZOLE 100 MG CAPSULE PO SCH ×2 (09:00→20:44)
[2021-08-14] MEDS: ASCORBIC ACID 500 MG TABLET PO SCH ×2 (09:00→20:44)
[2021-08-14] MEDS: MEROPENEM 500 MG in SODIUM CHLORIDE 0.9% 100 ML IV SCH ×2 (09:00→20:42)
[2021-08-14] MEDS: ASPIRIN CHEW 81 MG TABLET PO SCH (09:01)
[2021-08-14] MEDS: CHOLECALCIFEROL 1,000 UNIT TABLET PO SCH (09:01)
[2021-08-14] MEDS: amLODIPine 10 MG TABLET PO SCH (09:01)
[2021-08-14] MEDS: PANTOPRAZOLE 40 MG TABLET PO SCH (09:01)
[2021-08-14] MEDS: predniSONE 20 MG TABLET PO SCH (09:01)
[2021-08-14] MEDS: ZINC GLUCONATE 50 MG TABLET PO SCH (09:01)
[2021-08-14] MEDS: DOCUSATE SODIUM 100 MG CAPSULE PO SCH ×2 (09:01→20:47)
[2021-08-14] MEDS: FLUTICASONE 50 MCG NASAL SPRAY 16 GM BOTTLE BOTH NARES SCH ×2 (09:01→20:48)
[2021-08-14] MEDS: HEPARIN 5,000 UNIT/1 ML VIAL SUBCUT SCH ×2 (09:14→16:46)
[2021-08-14] MEDS: ROSUVASTATIN 20 MG TABLET PO SCH (20:44)
[2021-08-14] MEDS: ACETAMINOPHEN 325 MG TABLET PO PRN (22:02)
[2021-08-15] MEDS: ALBUTEROL/IPRATROPIUM 3 ML NEB RESP TX SCH ×5 (00:55→18:59)
[2021-08-15] MEDS: HEPARIN 5,000 UNIT/1 ML VIAL SUBCUT SCH ×3 (01:26→20:40)
[2021-08-15 06:46] LABS: Basophils % 0.2 % (0.0-0.8); Eosinophils # 0.2 10*3/uL (0.0-0.87); Eosinophils % 1.7 % (0.00-10.9); Hematocrit 22.8 VOL% (42.0-52.0); Hemoglobin 7.4 GM/DL (14.0-18.0); Immature Granulocytes % 5.5 %; Immature Granulocytes Absolute 0.72 #; Lymphocytes # 1.2 10*3/uL (1.4-4.0); Lymphocytes % 9.5 % (21.2-54.2); Mean Corpuscular HGB Conc 32.5 GM/DL (32-36); Mean Corpuscular Volume 87.4 FL (87-102); Mean Platelet Volume 10.7 FL (9.6-12.0); Monocytes % 7.1 % (1.7-12.7); Platelet Count 265 T/CUMM (130-400); Red Blood Count 2.61 MC/CUMM (3.8-5.5); Red Cell Distribution Width 13.9 % (9.3-17.3)
[2021-08-15 07:05] LABS: Hypochromia 1+; Lymphocytes 9 % (20-55); Microcytosis 1+; Ovalocytes Slight; Platelet Estimate Adequate; Segmented Neutrophils 88 % (50-85); Total Cells Counted 100
[2021-08-15 07:08] LABS: Calcium 8.1 MG/DL (8.5-10.1); Osmolality,Calculated 293.5 MOS/KG (273-304); Potassium 3.7 MMOL/L (3.5-5.1)
[2021-08-15] MEDS: BUDESONIDE 0.25 MG/2 ML NEB RESP TX SCH ×2 (07:30→18:59)
[2021-08-15] MEDS ORDERED: ALBUTEROL/IPRATROPIUM 3 ML NEB RESP TX PRN (07:45)
[2021-08-15] MEDS: CHOLECALCIFEROL 1,000 UNIT TABLET PO SCH (10:37)
[2021-08-15] MEDS: ITRACONAZOLE 100 MG CAPSULE PO SCH ×2 (10:37→20:40)
[2021-08-15] MEDS: ASPIRIN CHEW 81 MG TABLET PO SCH (10:37)
[2021-08-15] MEDS: DOCUSATE SODIUM 100 MG CAPSULE PO SCH ×2 (10:38→20:40)
[2021-08-15] MEDS: ZINC GLUCONATE 50 MG TABLET PO SCH (10:38)
[2021-08-15] MEDS: ASCORBIC ACID 500 MG TABLET PO SCH ×2 (10:38→20:40)
[2021-08-15] MEDS: PANTOPRAZOLE 40 MG TABLET PO SCH (10:39)
[2021-08-15] MEDS: predniSONE 20 MG TABLET PO SCH (10:39)
[2021-08-15] MEDS: amLODIPine 10 MG TABLET PO SCH (10:39)
[2021-08-15] MEDS: MEROPENEM 500 MG in SODIUM CHLORIDE 0.9% 100 ML IV SCH ×2 (10:40→20:40)
[2021-08-15] MEDS: FLUTICASONE 50 MCG NASAL SPRAY 16 GM BOTTLE BOTH NARES SCH ×2 (10:40→20:40)
[2021-08-15] MEDS ORDERED: SODIUM CHLORIDE 0.9% 1,000 ML IV PRN (13:05)
[2021-08-15] MEDS: ROSUVASTATIN 20 MG TABLET PO SCH (20:40)
[2021-08-15] MEDS: traZODone 50 MG TABLET PO SCH (20:40)
[2021-08-16] MEDS: HEPARIN 5,000 UNIT/1 ML VIAL SUBCUT SCH ×3 (04:10→20:45)
[2021-08-16 04:37] LABS: Basophils % 0.2 % (0.0-0.8); Eosinophils % 0.3 % (0.00-10.9); Hematocrit 26.6 VOL% (42.0-52.0); Hemoglobin 8.9 GM/DL (14.0-18.0); Immature Granulocytes % 5.4 %; Immature Granulocytes Absolute 0.68 #; Lymphocytes # 1.1 10*3/uL (1.4-4.0); Lymphocytes % 8.8 % (21.2-54.2); Mean Corpuscular HGB Conc 33.5 GM/DL (32-36); Mean Corpuscular Volume 86.9 FL (87-102); Mean Platelet Volume 12.2 FL (9.6-12.0); Monocytes % 6.7 % (1.7-12.7); Neutrophils % 78.6 % (38.7-73.9); Platelet Count 254 T/CUMM (130-400); Red Blood Count 3.06 MC/CUMM (3.8-5.5); Red Cell Distribution Width 14.8 % (9.3-17.3); White Blood Count 12.7 T/CUMM (4-12)
[2021-08-16 04:59] LABS: Hypochromia 1+; Lymphocytes 5 % (20-55); Microcytosis 1+; Platelet Estimate Adequate; Segmented Neutrophils 90 % (50-85); Total Cells Counted 100
[2021-08-16 05:43] LABS: Potassium 4.9 MMOL/L (3.5-5.1)
[2021-08-16 05:46] LABS: Osmolality,Calculated 293.5 MOS/KG (273-304)
[2021-08-16] MEDS: BUDESONIDE 0.25 MG/2 ML NEB RESP TX SCH ×2 (07:10→19:30)
[2021-08-16] MEDS: ALBUTEROL/IPRATROPIUM 3 ML NEB RESP TX SCH ×3 (07:10→19:20)
[2021-08-16] MEDS: ITRACONAZOLE 100 MG CAPSULE PO SCH ×2 (09:23→20:45)
[2021-08-16] MEDS: PANTOPRAZOLE 40 MG TABLET PO SCH (09:23)
[2021-08-16] MEDS: DOCUSATE SODIUM 100 MG CAPSULE PO SCH ×2 (09:23→20:45)
[2021-08-16] MEDS: ASPIRIN CHEW 81 MG TABLET PO SCH (09:23)
[2021-08-16] MEDS: CHOLECALCIFEROL 1,000 UNIT TABLET PO SCH (09:24)
[2021-08-16] MEDS: predniSONE 20 MG TABLET PO SCH (09:24)
[2021-08-16] MEDS: FLUTICASONE 50 MCG NASAL SPRAY 16 GM BOTTLE BOTH NARES SCH ×2 (09:24→20:45)
[2021-08-16] MEDS: ZINC GLUCONATE 50 MG TABLET PO SCH (09:24)
[2021-08-16] MEDS: ASCORBIC ACID 500 MG TABLET PO SCH ×2 (09:24→20:45)
[2021-08-16] MEDS: amLODIPine 10 MG TABLET PO SCH (09:24)
[2021-08-16] MEDS: MEROPENEM 500 MG in SODIUM CHLORIDE 0.9% 100 ML IV SCH ×2 (09:25→20:45)
[2021-08-16] MEDS: CLORAZEPATE 3.75 MG TABLET PO PRN (11:38)
[2021-08-16] MEDS: traZODone 50 MG TABLET PO SCH (20:45)
[2021-08-16] MEDS: ROSUVASTATIN 20 MG TABLET PO SCH (20:45)
[2021-08-17] MEDS: ACETAMINOPHEN 325 MG TABLET PO PRN (00:30)
[2021-08-17] MEDS: HEPARIN 5,000 UNIT/1 ML VIAL SUBCUT SCH ×3 (03:20→20:22)
[2021-08-17 03:52] LABS: Basophils % 0.2 % (0.0-0.8); Eosinophils # 0.1 10*3/uL (0.0-0.87); Eosinophils % 1.1 % (0.00-10.9); Hematocrit 25.2 VOL% (42.0-52.0); Hemoglobin 7.9 GM/DL (14.0-18.0); Immature Granulocytes % 4.7 %; Immature Granulocytes Absolute 0.55 #; Lymphocytes # 1.2 10*3/uL (1.4-4.0); Lymphocytes % 10.2 % (21.2-54.2); Mean Corpuscular HGB Conc 31.3 GM/DL (32-36); Mean Platelet Volume 10.7 FL (9.6-12.0); Monocytes % 7.6 % (1.7-12.7); Neutrophils % 76.2 % (38.7-73.9); Platelet Count 246 T/CUMM (130-400); Red Cell Distribution Width 14.7 % (9.3-17.3); White Blood Count 11.6 T/CUMM (4-12)
[2021-08-17 04:17] LABS: Calcium 8.3 MG/DL (8.5-10.1); Potassium 4.1 MMOL/L (3.5-5.1)
[2021-08-17 04:25] LABS: Eosinophils 2 % (0-10); Hypochromia 1+; Lymphocytes 13 % (20-55); Microcytosis 1+; Platelet Estimate Adequate; Segmented Neutrophils 80 % (50-85); Total Cells Counted 100
[2021-08-17] MEDS: BUDESONIDE 0.25 MG/2 ML NEB RESP TX SCH ×2 (06:53→18:52)
[2021-08-17] MEDS: ALBUTEROL/IPRATROPIUM 3 ML NEB RESP TX SCH ×3 (06:53→18:52)
[2021-08-17] MEDS: DOCUSATE SODIUM 100 MG CAPSULE PO SCH ×2 (08:45→20:22)
[2021-08-17] MEDS: ASCORBIC ACID 500 MG TABLET PO SCH ×2 (08:45→20:23)
[2021-08-17] MEDS: ZINC GLUCONATE 50 MG TABLET PO SCH (08:45)
[2021-08-17] MEDS: ASPIRIN CHEW 81 MG TABLET PO SCH (08:45)
[2021-08-17] MEDS: PANTOPRAZOLE 40 MG TABLET PO SCH (08:46)
[2021-08-17] MEDS: amLODIPine 10 MG TABLET PO SCH (08:46)
[2021-08-17] MEDS: CHOLECALCIFEROL 1,000 UNIT TABLET PO SCH (08:46)
[2021-08-17] MEDS: ITRACONAZOLE 100 MG CAPSULE PO SCH ×2 (08:46→20:23)
[2021-08-17] MEDS: predniSONE 20 MG TABLET PO SCH (08:46)
[2021-08-17] MEDS: FLUTICASONE 50 MCG NASAL SPRAY 16 GM BOTTLE BOTH NARES SCH ×2 (08:47→20:23)
[2021-08-17] MEDS: ROSUVASTATIN 20 MG TABLET PO SCH (20:22)
[2021-08-17] MEDS: traZODone 50 MG TABLET PO SCH (20:23)
[2021-08-18] MEDS: ACETAMINOPHEN 325 MG TABLET PO PRN ×2 (00:40→23:00)
[2021-08-18] MEDS: HEPARIN 5,000 UNIT/1 ML VIAL SUBCUT SCH ×3 (03:30→20:25)
[2021-08-18 03:52] LABS: Basophils % 0.1 % (0.0-0.8); Eosinophils # 0.1 10*3/uL (0.0-0.87); Hematocrit 26.8 VOL% (42.0-52.0); Hemoglobin 8.6 GM/DL (14.0-18.0); Immature Granulocytes % 3.7 %; Immature Granulocytes Absolute 0.45 #; Lymphocytes # 1.3 10*3/uL (1.4-4.0); Lymphocytes % 10.5 % (21.2-54.2); Mean Corpuscular HGB Conc 32.1 GM/DL (32-36); Mean Corpuscular Volume 87.9 FL (87-102); Mean Platelet Volume 10.4 FL (9.6-12.0); Monocytes % 7.1 % (1.7-12.7); Neutrophils % 77.6 % (38.7-73.9); Platelet Count 290 T/CUMM (130-400); Red Blood Count 3.05 MC/CUMM (3.8-5.5); Red Cell Distribution Width 14.5 % (9.3-17.3)
[2021-08-18 04:21] LABS: Calcium 8.1 MG/DL (8.5-10.1); Osmolality,Calculated 295.3 MOS/KG (273-304); Potassium 4.2 MMOL/L (3.5-5.1)
[2021-08-18] MEDS: BUDESONIDE 0.25 MG/2 ML NEB RESP TX SCH ×2 (07:48→20:00)
[2021-08-18] MEDS: ALBUTEROL/IPRATROPIUM 3 ML NEB RESP TX SCH ×3 (07:48→19:50)
[2021-08-18] MEDS: CHOLECALCIFEROL 1,000 UNIT TABLET PO SCH (08:17)
[2021-08-18] MEDS: predniSONE 20 MG TABLET PO SCH (08:17)
[2021-08-18] MEDS: PANTOPRAZOLE 40 MG TABLET PO SCH (08:17)
[2021-08-18] MEDS: DOCUSATE SODIUM 100 MG CAPSULE PO SCH ×2 (08:17→20:25)
[2021-08-18] MEDS: ASCORBIC ACID 500 MG TABLET PO SCH ×2 (08:17→20:25)
[2021-08-18] MEDS: ZINC GLUCONATE 50 MG TABLET PO SCH (08:17)
[2021-08-18] MEDS: ASPIRIN CHEW 81 MG TABLET PO SCH (08:17)
[2021-08-18] MEDS: amLODIPine 10 MG TABLET PO SCH (08:18)
[2021-08-18] MEDS: FLUTICASONE 50 MCG NASAL SPRAY 16 GM BOTTLE BOTH NARES SCH ×2 (08:19→20:26)
[2021-08-18] MEDS: CLORAZEPATE 3.75 MG TABLET PO PRN (17:33)
[2021-08-18] MEDS: ROSUVASTATIN 20 MG TABLET PO SCH (20:25)
[2021-08-18] MEDS: traZODone 50 MG TABLET PO SCH (20:25)
[2021-08-19] MEDS: HEPARIN 5,000 UNIT/1 ML VIAL SUBCUT SCH (04:15)
[2021-08-19 04:40] LABS: Basophils % 0.2 % (0.0-0.8); Eosinophils # 0.3 10*3/uL (0.0-0.87); Eosinophils % 2.7 % (0.00-10.9); Hematocrit 22.9 VOL% (42.0-52.0); Hemoglobin 7.4 GM/DL (14.0-18.0); Immature Granulocytes % 3.3 %; Lymphocytes # 1.4 10*3/uL (1.4-4.0); Lymphocytes % 11.9 % (21.2-54.2); Mean Corpuscular HGB Conc 32.3 GM/DL (32-36); Mean Corpuscular Volume 88.8 FL (87-102); Mean Platelet Volume 10.4 FL (9.6-12.0); Monocytes % 7.4 % (1.7-12.7); Neutrophils % 74.5 % (38.7-73.9); Platelet Count 273 T/CUMM (130-400); Red Blood Count 2.58 MC/CUMM (3.8-5.5); Red Cell Distribution Width 14.6 % (9.3-17.3)
[2021-08-19 04:50] LABS: Alanine Aminotransferase 46 U/L (16-61); Albumin 1.3 G/DL (3.4-5.0); Alkaline Phosphatase 84 U/L (45-117); Aspartate Amino Transferase 22 U/L (0-37); Bilirubin,Total < 0.39 MG/DL (0.20-1.00); Blood Urea Nitrogen 54 MG/DL (7-18); Calcium 7.9 MG/DL (8.5-10.1); Carbon Dioxide 22 MMOL/L (21-32); Estimated Glom Filtration Rate 35 ML/MIN; Glucose 147 MG/DL (74-106); Osmolality,Calculated 296.4 MOS/KG (273-304); Potassium 3.7 MMOL/L (3.5-5.1); Sodium 140 MMOL/L (136-145); Total Protein 5.3 G/DL (6.4-8.2)
[2021-08-19 05:20] LABS: Band Neutrophils 2 % (0-10); Eosinophils 1 % (0-10); Lymphocytes 18 % (20-55); Metamyelocytes 1 %; Segmented Neutrophils 74 % (50-85); Total Cells Counted 100
[2021-08-19 05:21] LABS: Microcytosis 1+; Ovalocytes Slight; Platelet Estimate Normal
[2021-08-19] MEDS: BUDESONIDE 0.25 MG/2 ML NEB RESP TX SCH ×2 (06:59→20:00)
[2021-08-19] MEDS: ALBUTEROL/IPRATROPIUM 3 ML NEB RESP TX SCH ×3 (06:59→19:50)
[2021-08-19] MEDS: BENZONATATE 100 MG CAPSULE PO PRN (08:23)
[2021-08-19] MEDS: CLORAZEPATE 3.75 MG TABLET PO PRN ×2 (08:23→16:00)
[2021-08-19] MEDS ORDERED: MORPHINE 4 MG/1 ML VIAL IV PRN (09:58)
[2021-08-19] MEDS: CHOLECALCIFEROL 1,000 UNIT TABLET PO SCH (10:05)
[2021-08-19] MEDS: ASPIRIN CHEW 81 MG TABLET PO SCH (10:05)
[2021-08-19] MEDS: ZINC GLUCONATE 50 MG TABLET PO SCH (10:06)
[2021-08-19] MEDS: predniSONE 20 MG TABLET PO SCH ×2 (10:06→11:35)
[2021-08-19] MEDS: PANTOPRAZOLE 40 MG TABLET PO SCH (10:06)
[2021-08-19] MEDS: FLUTICASONE 50 MCG NASAL SPRAY 16 GM BOTTLE BOTH NARES SCH ×2 (10:06→20:04)
[2021-08-19] MEDS: ASCORBIC ACID 500 MG TABLET PO SCH ×2 (10:06→20:04)
[2021-08-19] MEDS: DOCUSATE SODIUM 100 MG CAPSULE PO SCH ×2 (10:06→20:04)
[2021-08-19] MEDS: amLODIPine 10 MG TABLET PO SCH (10:06)
[2021-08-19] MEDS: ROSUVASTATIN 20 MG TABLET PO SCH (20:04)
[2021-08-19] MEDS: traZODone 50 MG TABLET PO SCH (20:04)
[2021-08-20] MEDS: ACETAMINOPHEN 325 MG TABLET PO PRN (01:09)
[2021-08-20 04:39] LABS: Basophils % 0.1 % (0.0-0.8); Eosinophils # 0.6 10*3/uL (0.0-0.87); Eosinophils % 4.9 % (0.00-10.9); Hematocrit 23.9 VOL% (42.0-52.0); Hemoglobin 7.6 GM/DL (14.0-18.0); Immature Granulocytes % 2.4 %; Immature Granulocytes Absolute 0.27 #; Lymphocytes # 1.4 10*3/uL (1.4-4.0); Lymphocytes % 12.8 % (21.2-54.2); Mean Corpuscular HGB Conc 31.8 GM/DL (32-36); Mean Corpuscular Volume 90.5 FL (87-102); Neutrophils % 72.8 % (38.7-73.9); Platelet Count 293 T/CUMM (130-400); Red Blood Count 2.64 MC/CUMM (3.8-5.5); Red Cell Distribution Width 14.9 % (9.3-17.3); White Blood Count 11.2 T/CUMM (4-12)
[2021-08-20 05:00] LABS: Calcium 7.1 MG/DL (8.5-10.1); Osmolality,Calculated 293.3 MOS/KG (273-304); Potassium 4.2 MMOL/L (3.5-5.1)
[2021-08-20] MEDS: ALBUTEROL/IPRATROPIUM 3 ML NEB RESP TX SCH ×3 (07:36→19:50)
[2021-08-20] MEDS: BUDESONIDE 0.25 MG/2 ML NEB RESP TX SCH ×2 (07:36→20:00)
[2021-08-20] MEDS: PANTOPRAZOLE 40 MG TABLET PO SCH (09:25)
[2021-08-20] MEDS: ASCORBIC ACID 500 MG TABLET PO SCH ×2 (09:25→22:15)
[2021-08-20] MEDS: CHOLECALCIFEROL 1,000 UNIT TABLET PO SCH (09:25)
[2021-08-20] MEDS: predniSONE 20 MG TABLET PO SCH (09:25)
[2021-08-20] MEDS: ASPIRIN CHEW 81 MG TABLET PO SCH (09:25)
[2021-08-20] MEDS: amLODIPine 10 MG TABLET PO SCH (09:26)
[2021-08-20] MEDS: ZINC GLUCONATE 50 MG TABLET PO SCH (09:26)
[2021-08-20] MEDS: DOCUSATE SODIUM 100 MG CAPSULE PO SCH ×2 (09:26→22:14)
[2021-08-20] MEDS: FLUTICASONE 50 MCG NASAL SPRAY 16 GM BOTTLE BOTH NARES SCH ×2 (09:26→22:14)
[2021-08-20] MEDS: CLORAZEPATE 3.75 MG TABLET PO PRN (14:55)
[2021-08-20] MEDS: ROSUVASTATIN 20 MG TABLET PO SCH (22:14)
[2021-08-20] MEDS: traZODone 50 MG TABLET PO SCH (22:14)
[2021-08-21] MEDS: ACETAMINOPHEN 325 MG TABLET PO PRN (00:06)
[2021-08-21 03:11] LABS: Basophils % 0.2 % (0.0-0.8); Eosinophils # 0.7 10*3/uL (0.0-0.87); Eosinophils % 5.9 % (0.00-10.9); Hematocrit 24.4 VOL% (42.0-52.0); Hemoglobin 7.6 GM/DL (14.0-18.0); Immature Granulocytes % 2.3 %; Immature Granulocytes Absolute 0.28 #; Lymphocytes # 1.7 10*3/uL (1.4-4.0); Lymphocytes % 13.5 % (21.2-54.2); Mean Corpuscular HGB Conc 31.1 GM/DL (32-36); Mean Corpuscular Volume 91.4 FL (87-102); Mean Platelet Volume 10.4 FL (9.6-12.0); Monocytes % 5.9 % (1.7-12.7); Neutrophils % 72.2 % (38.7-73.9); Platelet Count 331 T/CUMM (130-400); Red Blood Count 2.67 MC/CUMM (3.8-5.5); Red Cell Distribution Width 15.2 % (9.3-17.3); White Blood Count 12.3 T/CUMM (4-12)
[2021-08-21 03:24] LABS: Calcium 8.3 MG/DL (8.5-10.1); Osmolality,Calculated 290.5 MOS/KG (273-304); Potassium 4.2 MMOL/L (3.5-5.1)
[2021-08-21] MEDS: BUDESONIDE 0.25 MG/2 ML NEB RESP TX SCH ×2 (07:10→19:20)
[2021-08-21] MEDS: ALBUTEROL/IPRATROPIUM 3 ML NEB RESP TX SCH ×3 (07:10→19:10)
[2021-08-21] MEDS: CHOLECALCIFEROL 1,000 UNIT TABLET PO SCH (09:47)
[2021-08-21] MEDS: ASPIRIN CHEW 81 MG TABLET PO SCH (09:47)
[2021-08-21] MEDS: DOCUSATE SODIUM 100 MG CAPSULE PO SCH ×2 (09:47→22:34)
[2021-08-21] MEDS: ASCORBIC ACID 500 MG TABLET PO SCH ×2 (09:48→22:00)
[2021-08-21] MEDS: PANTOPRAZOLE 40 MG TABLET PO SCH (09:48)
[2021-08-21] MEDS: FLUTICASONE 50 MCG NASAL SPRAY 16 GM BOTTLE BOTH NARES SCH ×2 (09:48→22:00)
[2021-08-21] MEDS: ZINC GLUCONATE 50 MG TABLET PO SCH (09:48)
[2021-08-21] MEDS: amLODIPine 10 MG TABLET PO SCH (09:50)
[2021-08-21] MEDS: ROSUVASTATIN 20 MG TABLET PO SCH (22:00)
[2021-08-21] MEDS: traZODone 50 MG TABLET PO SCH (22:00)
[2021-08-22] MEDS: ACETAMINOPHEN 325 MG TABLET PO PRN (00:39)
[2021-08-22] MEDS: CLORAZEPATE 3.75 MG TABLET PO PRN ×2 (03:35→11:27)
[2021-08-22 03:39] LABS: Basophils % 0.3 % (0.0-0.8); Eosinophils # 1.4 10*3/uL (0.0-0.87); Eosinophils % 10.6 % (0.00-10.9); Hematocrit 25.1 VOL% (42.0-52.0); Hemoglobin 7.9 GM/DL (14.0-18.0); Immature Granulocytes % 1.9 %; Immature Granulocytes Absolute 0.26 #; Lymphocytes # 1.6 10*3/uL (1.4-4.0); Lymphocytes % 11.8 % (21.2-54.2); Mean Corpuscular HGB Conc 31.5 GM/DL (32-36); Mean Corpuscular Volume 90.3 FL (87-102); Mean Platelet Volume 9.7 FL (9.6-12.0); Monocytes % 6.3 % (1.7-12.7); Neutrophils % 69.1 % (38.7-73.9); Platelet Count 322 T/CUMM (130-400); Red Blood Count 2.78 MC/CUMM (3.8-5.5); Red Cell Distribution Width 15.4 % (9.3-17.3); White Blood Count 13.5 T/CUMM (4-12)
[2021-08-22 04:01] LABS: Calcium 8.1 MG/DL (8.5-10.1); Osmolality,Calculated 292.1 MOS/KG (273-304); Potassium 4.7 MMOL/L (3.5-5.1)
[2021-08-22] MEDS: ALBUTEROL/IPRATROPIUM 3 ML NEB RESP TX SCH ×3 (07:56→19:27)
[2021-08-22] MEDS: BUDESONIDE 0.25 MG/2 ML NEB RESP TX SCH ×2 (07:56→19:27)
[2021-08-22 09:38] LABS: % Iron Saturation 19.6 % (18-50); Ferritin 474.4 ng/mL (26-388); Folate 6.48 NG/ML (5.38-24.0)
[2021-08-22] MEDS: DOCUSATE SODIUM 100 MG CAPSULE PO SCH ×2 (12:19→22:23)
[2021-08-22] MEDS: ASPIRIN CHEW 81 MG TABLET PO SCH (12:19)
[2021-08-22] MEDS: PANTOPRAZOLE 40 MG TABLET PO SCH (12:19)
[2021-08-22] MEDS: amLODIPine 10 MG TABLET PO SCH (12:19)
[2021-08-22] MEDS: ASCORBIC ACID 500 MG TABLET PO SCH ×2 (12:19→21:48)
[2021-08-22] MEDS: CHOLECALCIFEROL 1,000 UNIT TABLET PO SCH (12:19)
[2021-08-22] MEDS: SODIUM CHLORIDE 0.9% 1,000 ML IV SCH (12:20)
[2021-08-22] MEDS: FLUTICASONE 50 MCG NASAL SPRAY 16 GM BOTTLE BOTH NARES SCH ×2 (12:20→21:27)
[2021-08-22] MEDS: ZINC GLUCONATE 50 MG TABLET PO SCH (12:20)
[2021-08-22] MEDS: FERROUS SULFATE 325 MG TABLET PO SCH (15:05)
[2021-08-22] MEDS: traZODone 50 MG TABLET PO SCH (21:48)
[2021-08-22] MEDS: ROSUVASTATIN 20 MG TABLET PO SCH (21:48)
[2021-08-23] MEDS: ALBUTEROL/IPRATROPIUM 3 ML NEB RESP TX SCH ×3 (07:38→20:30)
[2021-08-23] MEDS: BUDESONIDE 0.25 MG/2 ML NEB RESP TX SCH ×2 (07:38→20:30)
[2021-08-23 08:11] LABS: Basophils % 0.2 % (0.0-0.8); Eosinophils # 1.6 10*3/uL (0.0-0.87); Hematocrit 27.7 VOL% (42.0-52.0); Hemoglobin 8.8 GM/DL (14.0-18.0); Immature Granulocytes % 2.1 %; Immature Granulocytes Absolute 0.27 #; Lymphocytes # 1.5 10*3/uL (1.4-4.0); Lymphocytes % 11.3 % (21.2-54.2); Mean Corpuscular HGB Conc 31.8 GM/DL (32-36); Mean Corpuscular Volume 90.5 FL (87-102); Mean Platelet Volume 9.4 FL (9.6-12.0); Monocytes % 6.2 % (1.7-12.7); Neutrophils % 68.2 % (38.7-73.9); Platelet Count 359 T/CUMM (130-400); Red Blood Count 3.06 MC/CUMM (3.8-5.5); Red Cell Distribution Width 15.5 % (9.3-17.3); White Blood Count 13.1 T/CUMM (4-12)
[2021-08-23 08:26] LABS: Calcium 8.7 MG/DL (8.5-10.1); Osmolality,Calculated 286.5 MOS/KG (273-304); Potassium 4.3 MMOL/L (3.5-5.1)
[2021-08-23 08:39] LABS: Eosinophils 6 % (0-10); Lymphocytes 14 % (20-55); Myelocytes 1 %; Segmented Neutrophils 77 % (50-85); Total Cells Counted 100
[2021-08-23 08:40] LABS: Hypochromia 1+; Microcytosis 1+; Platelet Estimate Normal
[2021-08-23] MEDS: CLORAZEPATE 3.75 MG TABLET PO PRN ×2 (10:56→21:29)
[2021-08-23] MEDS: ASCORBIC ACID 500 MG TABLET PO SCH ×2 (10:56→21:29)
[2021-08-23] MEDS: CHOLECALCIFEROL 1,000 UNIT TABLET PO SCH (10:56)
[2021-08-23] MEDS: ZINC GLUCONATE 50 MG TABLET PO SCH (10:56)
[2021-08-23] MEDS: amLODIPine 10 MG TABLET PO SCH (10:56)
[2021-08-23] MEDS: ASPIRIN CHEW 81 MG TABLET PO SCH (10:56)
[2021-08-23] MEDS: PANTOPRAZOLE 40 MG TABLET PO SCH (10:57)
[2021-08-23] MEDS: DOCUSATE SODIUM 100 MG CAPSULE PO SCH ×2 (10:57→21:29)
[2021-08-23] MEDS: FERROUS SULFATE 325 MG TABLET PO SCH (10:58)
[2021-08-23] MEDS: FLUTICASONE 50 MCG NASAL SPRAY 16 GM BOTTLE BOTH NARES SCH ×2 (10:59→21:31)
[2021-08-23] MEDS: SODIUM CHLORIDE 0.9% 1,000 ML IV SCH (14:20)
[2021-08-23] MEDS: diphenhydrAMINE CAP 25 MG CAPSULE PO PRN (21:29)
[2021-08-23] MEDS: ROSUVASTATIN 20 MG TABLET PO SCH (21:29)
[2021-08-23] MEDS: traZODone 50 MG TABLET PO SCH (21:29)
[2021-08-24] MEDS: ACETAMINOPHEN 325 MG TABLET PO PRN ×2 (02:05→18:39)
[2021-08-24 04:37] LABS: Basophils % 0.2 % (0.0-0.8); Eosinophils # 1.5 10*3/uL (0.0-0.87); Eosinophils % 12.7 % (0.00-10.9); Hematocrit 24.2 VOL% (42.0-52.0); Hemoglobin 7.8 GM/DL (14.0-18.0); Immature Granulocytes % 1.4 %; Immature Granulocytes Absolute 0.17 #; Lymphocytes # 1.2 10*3/uL (1.4-4.0); Lymphocytes % 10.3 % (21.2-54.2); Mean Corpuscular HGB Conc 32.2 GM/DL (32-36); Mean Corpuscular Volume 90.6 FL (87-102); Mean Platelet Volume 9.6 FL (9.6-12.0); Monocytes % 7.1 % (1.7-12.7); Neutrophils % 68.3 % (38.7-73.9); Platelet Count 340 T/CUMM (130-400); Red Blood Count 2.67 MC/CUMM (3.8-5.5); Red Cell Distribution Width 15.4 % (9.3-17.3)
[2021-08-24 04:59] LABS: Calcium 8.3 MG/DL (8.5-10.1); Osmolality,Calculated 287.4 MOS/KG (273-304); Potassium 3.8 MMOL/L (3.5-5.1)
[2021-08-24 05:17] LABS: Eosinophils 7 % (0-10); Hypochromia 1+; Lymphocytes 8 % (20-55); Microcytosis 1+; Platelet Estimate Adequate; Segmented Neutrophils 79 % (50-85); Total Cells Counted 100
[2021-08-24] MEDS: BUDESONIDE 0.25 MG/2 ML NEB RESP TX SCH ×2 (07:14→20:00)
[2021-08-24] MEDS: ALBUTEROL/IPRATROPIUM 3 ML NEB RESP TX SCH ×3 (07:14→20:00)
[2021-08-24] MEDS: ASPIRIN CHEW 81 MG TABLET PO SCH (08:58)
[2021-08-24] MEDS: PANTOPRAZOLE 40 MG TABLET PO SCH (08:59)
[2021-08-24] MEDS: FERROUS SULFATE 325 MG TABLET PO SCH (08:59)
[2021-08-24] MEDS: amLODIPine 10 MG TABLET PO SCH (08:59)
[2021-08-24] MEDS: CHOLECALCIFEROL 1,000 UNIT TABLET PO SCH (08:59)
[2021-08-24] MEDS: DOCUSATE SODIUM 100 MG CAPSULE PO SCH ×2 (08:59→21:30)
[2021-08-24] MEDS: ASCORBIC ACID 500 MG TABLET PO SCH ×2 (08:59→21:30)
[2021-08-24] MEDS: ZINC GLUCONATE 50 MG TABLET PO SCH (08:59)
[2021-08-24] MEDS: FLUTICASONE 50 MCG NASAL SPRAY 16 GM BOTTLE BOTH NARES SCH ×2 (09:00→21:30)
[2021-08-24] MEDS: CLORAZEPATE 3.75 MG TABLET PO PRN (12:50)
[2021-08-24] MEDS: traZODone 50 MG TABLET PO SCH (21:30)
[2021-08-24] MEDS: ROSUVASTATIN 20 MG TABLET PO SCH (21:30)
[2021-08-25] MEDS: ACETAMINOPHEN 325 MG TABLET PO PRN (01:22)
[2021-08-25] MEDS: BUDESONIDE 0.25 MG/2 ML NEB RESP TX SCH ×2 (06:54→19:46)
[2021-08-25] MEDS: ALBUTEROL/IPRATROPIUM 3 ML NEB RESP TX SCH ×3 (06:54→19:46)
[2021-08-25 07:00] LABS: Basophils % 0.3 % (0.0-0.8); Eosinophils # 1.7 10*3/uL (0.0-0.87); Eosinophils % 11.4 % (0.00-10.9); Hematocrit 28.2 VOL% (42.0-52.0); Hemoglobin 8.9 GM/DL (14.0-18.0); Immature Granulocytes % 1.3 %; Immature Granulocytes Absolute 0.19 #; Lymphocytes # 1.7 10*3/uL (1.4-4.0); Lymphocytes % 11.4 % (21.2-54.2); Mean Corpuscular HGB Conc 31.6 GM/DL (32-36); Mean Corpuscular Volume 91.6 FL (87-102); Mean Platelet Volume 9.8 FL (9.6-12.0); Monocytes % 7.2 % (1.7-12.7); Neutrophils % 68.4 % (38.7-73.9); Platelet Count 422 T/CUMM (130-400); Red Blood Count 3.08 MC/CUMM (3.8-5.5); Red Cell Distribution Width 15.3 % (9.3-17.3); White Blood Count 14.8 T/CUMM (4-12)
[2021-08-25 07:05] LABS: Calcium 9.2 MG/DL (8.5-10.1); Osmolality,Calculated 285.4 MOS/KG (273-304); Potassium 4.3 MMOL/L (3.5-5.1)
[2021-08-25] MEDS: ASPIRIN CHEW 81 MG TABLET PO SCH (09:28)
[2021-08-25] MEDS: amLODIPine 10 MG TABLET PO SCH (09:28)
[2021-08-25] MEDS: ZINC GLUCONATE 50 MG TABLET PO SCH (09:28)
[2021-08-25] MEDS: CHOLECALCIFEROL 1,000 UNIT TABLET PO SCH (09:28)
[2021-08-25] MEDS: ASCORBIC ACID 500 MG TABLET PO SCH ×2 (09:28→20:42)
[2021-08-25] MEDS: FERROUS SULFATE 325 MG TABLET PO SCH (09:29)
[2021-08-25] MEDS: PANTOPRAZOLE 40 MG TABLET PO SCH (09:29)
[2021-08-25] MEDS: FLUTICASONE 50 MCG NASAL SPRAY 16 GM BOTTLE BOTH NARES SCH ×2 (09:29→20:42)
[2021-08-25] MEDS: DOCUSATE SODIUM 100 MG CAPSULE PO SCH ×2 (09:29→22:53)
[2021-08-25 10:07] LABS: Eosinophils 11 % (0-10); Lymphocytes 20 % (20-55); Segmented Neutrophils 68 % (50-85); Total Cells Counted 100
[2021-08-25 10:08] LABS: Hypochromia Slight; Platelet Estimate Increased; Polychromasia Slight
[2021-08-25] MEDS: predniSONE 20 MG TABLET PO SCH (11:53)
[2021-08-25] MEDS: traZODone 50 MG TABLET PO SCH (20:42)
[2021-08-25] MEDS: ROSUVASTATIN 20 MG TABLET PO SCH (20:42)
[2021-08-26 04:55] LABS: Basophils % 0.3 % (0.0-0.8); Eosinophils # 0.2 10*3/uL (0.0-0.87); Eosinophils % 1.4 % (0.00-10.9); Hematocrit 24.4 VOL% (42.0-52.0); Hemoglobin 7.8 GM/DL (14.0-18.0); Immature Granulocytes Absolute 0.23 #; Lymphocytes # 1.2 10*3/uL (1.4-4.0); Lymphocytes % 10.5 % (21.2-54.2); Mean Corpuscular Volume 90.4 FL (87-102); Mean Platelet Volume 9.8 FL (9.6-12.0); Monocytes % 5.4 % (1.7-12.7); Neutrophils % 80.4 % (38.7-73.9); Platelet Count 361 T/CUMM (130-400); Red Cell Distribution Width 15.1 % (9.3-17.3); White Blood Count 11.6 T/CUMM (4-12)
[2021-08-26 05:21] LABS: Calcium 8.4 MG/DL (8.5-10.1); Osmolality,Calculated 288.5 MOS/KG (273-304)
[2021-08-26] MEDS: BUDESONIDE 0.25 MG/2 ML NEB RESP TX SCH ×2 (06:56→19:30)
[2021-08-26] MEDS: ALBUTEROL/IPRATROPIUM 3 ML NEB RESP TX SCH ×3 (06:56→19:30)
[2021-08-26] MEDS: ASCORBIC ACID 500 MG TABLET PO SCH ×2 (09:31→22:35)
[2021-08-26] MEDS: amLODIPine 10 MG TABLET PO SCH (09:31)
[2021-08-26] MEDS: THEOPHYLLINE ER (24 HR) 400 MG CAPSULE PO SCH (09:31)
[2021-08-26] MEDS: predniSONE 20 MG TABLET PO SCH (09:31)
[2021-08-26] MEDS: ASPIRIN CHEW 81 MG TABLET PO SCH (09:32)
[2021-08-26] MEDS: ZINC GLUCONATE 50 MG TABLET PO SCH (09:32)
[2021-08-26] MEDS: FERROUS SULFATE 325 MG TABLET PO SCH (09:32)
[2021-08-26] MEDS: PANTOPRAZOLE 40 MG TABLET PO SCH (09:32)
[2021-08-26] MEDS: CHOLECALCIFEROL 1,000 UNIT TABLET PO SCH (09:32)
[2021-08-26] MEDS: HYDROCORTISONE 2.5% CREAM 30 GM TUBE TOP SCH ×3 (09:32→22:35)
[2021-08-26] MEDS: DOCUSATE SODIUM 100 MG CAPSULE PO SCH ×2 (09:33→22:35)
[2021-08-26] MEDS: FLUTICASONE 50 MCG NASAL SPRAY 16 GM BOTTLE BOTH NARES SCH ×2 (09:33→22:35)
[2021-08-26] MEDS: ENOXAPARIN 80 MG/0.8 ML SYRINGE SUBCUT SCH (11:10)
[2021-08-26] MEDS: ROSUVASTATIN 20 MG TABLET PO SCH (22:35)
[2021-08-26] MEDS: traZODone 50 MG TABLET PO SCH (22:36)
[2021-08-27] MEDS: OLANZapine 5 MG TABLET PO PRN (00:59)
[2021-08-27 06:44] LABS: Calcium 8.5 MG/DL (8.5-10.1); Osmolality,Calculated 282.7 MOS/KG (273-304); Potassium 4.4 MMOL/L (3.5-5.1)
[2021-08-27 06:56] LABS: Basophils % 0.3 % (0.0-0.8); Eosinophils # 0.3 10*3/uL (0.0-0.87); Eosinophils % 2.4 % (0.00-10.9); Hematocrit 23.6 VOL% (42.0-52.0); Hemoglobin 7.5 GM/DL (14.0-18.0); Immature Granulocytes % 1.9 %; Immature Granulocytes Absolute 0.25 #; Lymphocytes # 1.7 10*3/uL (1.4-4.0); Lymphocytes % 12.6 % (21.2-54.2); Mean Corpuscular HGB Conc 31.8 GM/DL (32-36); Mean Corpuscular Volume 90.1 FL (87-102); Mean Platelet Volume 9.8 FL (9.6-12.0); Monocytes % 7.6 % (1.7-12.7); Neutrophils % 75.2 % (38.7-73.9); Platelet Count 399 T/CUMM (130-400); Red Blood Count 2.62 MC/CUMM (3.8-5.5); Red Cell Distribution Width 15.3 % (9.3-17.3); White Blood Count 13.4 T/CUMM (4-12)
[2021-08-27] MEDS: ALBUTEROL/IPRATROPIUM 3 ML NEB RESP TX SCH ×3 (07:18→19:06)
[2021-08-27] MEDS: BUDESONIDE 0.25 MG/2 ML NEB RESP TX SCH ×2 (07:18→19:06)
[2021-08-27] MEDS: FERROUS SULFATE 325 MG TABLET PO SCH (09:14)
[2021-08-27] MEDS: predniSONE 20 MG TABLET PO SCH (09:14)
[2021-08-27] MEDS: ASCORBIC ACID 500 MG TABLET PO SCH ×2 (09:14→21:34)
[2021-08-27] MEDS: CHOLECALCIFEROL 1,000 UNIT TABLET PO SCH (09:14)
[2021-08-27] MEDS: ASPIRIN CHEW 81 MG TABLET PO SCH (09:15)
[2021-08-27] MEDS: THEOPHYLLINE ER (24 HR) 400 MG CAPSULE PO SCH (09:15)
[2021-08-27] MEDS: amLODIPine 10 MG TABLET PO SCH (09:15)
[2021-08-27] MEDS: ZINC GLUCONATE 50 MG TABLET PO SCH (09:15)
[2021-08-27] MEDS: PANTOPRAZOLE 40 MG TABLET PO SCH (09:17)
[2021-08-27] MEDS: HYDROCORTISONE 2.5% CREAM 30 GM TUBE TOP SCH ×3 (11:11→21:35)
[2021-08-27] MEDS: DOCUSATE SODIUM 100 MG CAPSULE PO SCH ×2 (11:11→21:34)
[2021-08-27] MEDS: FLUTICASONE 50 MCG NASAL SPRAY 16 GM BOTTLE BOTH NARES SCH ×2 (11:11→21:34)
[2021-08-27] MEDS: ENOXAPARIN 80 MG/0.8 ML SYRINGE SUBCUT SCH (12:27)
[2021-08-27] MEDS: traZODone 50 MG TABLET PO SCH (21:34)
[2021-08-27] MEDS: ROSUVASTATIN 20 MG TABLET PO SCH (21:34)
[2021-08-28] MEDS: OLANZapine 5 MG TABLET PO PRN (01:24)
[2021-08-28] MEDS: ALBUTEROL/IPRATROPIUM 3 ML NEB RESP TX SCH ×3 (07:22→21:28)
[2021-08-28] MEDS: BUDESONIDE 0.25 MG/2 ML NEB RESP TX SCH ×2 (07:22→21:28)
[2021-08-28] MEDS: FERROUS SULFATE 325 MG TABLET PO SCH (10:09)
[2021-08-28] MEDS: PANTOPRAZOLE 40 MG TABLET PO SCH (10:09)
[2021-08-28] MEDS: ASCORBIC ACID 500 MG TABLET PO SCH (10:10)
[2021-08-28] MEDS: ZINC GLUCONATE 50 MG TABLET PO SCH (10:10)
[2021-08-28] MEDS: ASPIRIN CHEW 81 MG TABLET PO SCH (10:10)
[2021-08-28] MEDS: THEOPHYLLINE ER (24 HR) 400 MG CAPSULE PO SCH (10:10)
[2021-08-28] MEDS: CHOLECALCIFEROL 1,000 UNIT TABLET PO SCH (10:10)
[2021-08-28] MEDS: DOCUSATE SODIUM 100 MG CAPSULE PO SCH ×2 (10:10→21:55)
[2021-08-28] MEDS: predniSONE 20 MG TABLET PO SCH (10:11)
[2021-08-28] MEDS: amLODIPine 10 MG TABLET PO SCH (10:11)
[2021-08-28] MEDS: FLUTICASONE 50 MCG NASAL SPRAY 16 GM BOTTLE BOTH NARES SCH ×2 (10:19→21:55)
[2021-08-28] MEDS: HYDROCORTISONE 2.5% CREAM 30 GM TUBE TOP SCH ×3 (10:19→21:55)
[2021-08-28] MEDS: ENOXAPARIN 80 MG/0.8 ML SYRINGE SUBCUT SCH (11:08)
[2021-08-28] MEDS: ROSUVASTATIN 20 MG TABLET PO SCH (21:55)
[2021-08-28] MEDS: traZODone 50 MG TABLET PO SCH (21:55)
[2021-08-28] MEDS: COLCHICINE 0.6 MG CAPSULE PO SCH (21:55)
[2021-08-29] MEDS: ASCORBIC ACID 500 MG TABLET PO SCH ×3 (01:25→21:31)
[2021-08-29 04:51] LABS: Basophils % 0.2 % (0.0-0.8); Eosinophils # 0.2 10*3/uL (0.0-0.87); Eosinophils % 1.3 % (0.00-10.9); Hematocrit 21.4 VOL% (42.0-52.0); Hemoglobin 6.9 GM/DL (14.0-18.0); Immature Granulocytes % 5.1 %; Immature Granulocytes Absolute 0.62 #; Lymphocytes # 1.9 10*3/uL (1.4-4.0); Lymphocytes % 15.5 % (21.2-54.2); Mean Corpuscular HGB Conc 32.2 GM/DL (32-36); Mean Corpuscular Volume 89.9 FL (87-102); Mean Platelet Volume 9.3 FL (9.6-12.0); Monocytes % 9.2 % (1.7-12.7); Neutrophils % 68.7 % (38.7-73.9); Platelet Count 400 T/CUMM (130-400); Red Blood Count 2.38 MC/CUMM (3.8-5.5); Red Cell Distribution Width 15.6 % (9.3-17.3); White Blood Count 12.3 T/CUMM (4-12)
[2021-08-29 05:06] LABS: Calcium 8.3 MG/DL (8.5-10.1); Osmolality,Calculated 292.4 MOS/KG (273-304); Potassium 4.5 MMOL/L (3.5-5.1); Uric Acid 7.2 MG/DL (3.5-7.2)
[2021-08-29 05:27] LABS: Band Neutrophils 1 % (0-10); Eosinophils 1 % (0-10); Hypochromia 2+; Lymphocytes 17 % (20-55); Microcytosis 1+; Platelet Estimate Adequate; Segmented Neutrophils 72 % (50-85); Total Cells Counted 100
[2021-08-29] MEDS: ALBUTEROL/IPRATROPIUM 3 ML NEB RESP TX SCH ×3 (06:55→19:50)
[2021-08-29] MEDS: BUDESONIDE 0.25 MG/2 ML NEB RESP TX SCH ×2 (06:55→19:50)
[2021-08-29] MEDS: THEOPHYLLINE ER (24 HR) 400 MG CAPSULE PO SCH (09:43)
[2021-08-29] MEDS: CHOLECALCIFEROL 1,000 UNIT TABLET PO SCH (09:43)
[2021-08-29] MEDS: COLCHICINE 0.6 MG CAPSULE PO SCH ×2 (09:44→21:32)
[2021-08-29] MEDS: ASPIRIN CHEW 81 MG TABLET PO SCH (09:44)
[2021-08-29] MEDS: PANTOPRAZOLE 40 MG TABLET PO SCH (09:44)
[2021-08-29] MEDS: predniSONE 20 MG TABLET PO SCH (09:44)
[2021-08-29] MEDS: FERROUS SULFATE 325 MG TABLET PO SCH (09:44)
[2021-08-29] MEDS: amLODIPine 10 MG TABLET PO SCH (09:44)
[2021-08-29] MEDS: ZINC GLUCONATE 50 MG TABLET PO SCH (09:44)
[2021-08-29] MEDS: FLUTICASONE 50 MCG NASAL SPRAY 16 GM BOTTLE BOTH NARES SCH ×2 (09:45→21:33)
[2021-08-29] MEDS: DOCUSATE SODIUM 100 MG CAPSULE PO SCH ×2 (09:45→21:31)
[2021-08-29] MEDS: HYDROCORTISONE 2.5% CREAM 30 GM TUBE TOP SCH ×3 (09:46→21:33)
[2021-08-29] MEDS: ENOXAPARIN 80 MG/0.8 ML SYRINGE SUBCUT SCH (11:20)
[2021-08-29] MEDS: traZODone 50 MG TABLET PO SCH (21:32)
[2021-08-29] MEDS: ROSUVASTATIN 20 MG TABLET PO SCH (21:32)
[2021-08-30] MEDS: diphenhydrAMINE CAP 25 MG CAPSULE PO PRN (01:14)
[2021-08-30] MEDS: BUDESONIDE 0.25 MG/2 ML NEB RESP TX SCH ×2 (07:11→20:00)
[2021-08-30] MEDS: ALBUTEROL/IPRATROPIUM 3 ML NEB RESP TX SCH ×3 (07:11→20:00)
[2021-08-30] MEDS: CHOLECALCIFEROL 1,000 UNIT TABLET PO SCH (09:14)
[2021-08-30] MEDS: ASPIRIN CHEW 81 MG TABLET PO SCH (09:14)
[2021-08-30] MEDS: predniSONE 20 MG TABLET PO SCH (09:15)
[2021-08-30] MEDS: PANTOPRAZOLE 40 MG TABLET PO SCH (09:15)
[2021-08-30] MEDS: DOCUSATE SODIUM 100 MG CAPSULE PO SCH ×2 (09:15→20:33)
[2021-08-30] MEDS: FERROUS SULFATE 325 MG TABLET PO SCH (09:15)
[2021-08-30] MEDS: amLODIPine 10 MG TABLET PO SCH (09:15)
[2021-08-30] MEDS: ASCORBIC ACID 500 MG TABLET PO SCH ×2 (09:15→20:34)
[2021-08-30] MEDS: FLUTICASONE 50 MCG NASAL SPRAY 16 GM BOTTLE BOTH NARES SCH ×2 (09:16→20:33)
[2021-08-30] MEDS: HYDROCORTISONE 2.5% CREAM 30 GM TUBE TOP SCH ×3 (09:16→20:33)
[2021-08-30] MEDS: COLCHICINE 0.6 MG CAPSULE PO SCH ×2 (09:16→20:33)
[2021-08-30] MEDS: ZINC GLUCONATE 50 MG TABLET PO SCH (09:16)
[2021-08-30] MEDS: THEOPHYLLINE ER (24 HR) 400 MG CAPSULE PO SCH (09:16)
[2021-08-30] MEDS: ENOXAPARIN 80 MG/0.8 ML SYRINGE SUBCUT SCH (12:34)
[2021-08-30] MEDS: MELATONIN 3 MG TABLET PO SCH (20:33)
[2021-08-30] MEDS: ITRACONAZOLE 100 MG CAPSULE PO SCH (20:33)
[2021-08-30] MEDS: ROSUVASTATIN 20 MG TABLET PO SCH (20:33)
[2021-08-31] MEDS: ALBUTEROL/IPRATROPIUM 3 ML NEB RESP TX SCH ×3 (07:18→19:30)
[2021-08-31] MEDS: BUDESONIDE 0.25 MG/2 ML NEB RESP TX SCH ×2 (07:18→19:47)
[2021-08-31 07:58] LABS: Basophils # 0.1 10*3/uL (0.0-0.2); Basophils % 0.3 % (0.0-0.8); Eosinophils # 0.9 10*3/uL (0.0-0.87); Hemoglobin 6.5 GM/DL (14.0-18.0); Immature Granulocytes % 6.9 %; Immature Granulocytes Absolute 1.19 #; Lymphocytes # 3.5 10*3/uL (1.4-4.0); Lymphocytes % 20.5 % (21.2-54.2); Mean Corpuscular Volume 91.3 FL (87-102); Mean Platelet Volume 9.4 FL (9.6-12.0); Monocytes % 10.4 % (1.7-12.7); NRBC # 0.02 10*3/uL; Neutrophils % 56.9 % (38.7-73.9); Platelet Count 423 T/CUMM (130-400); Red Cell Distribution Width 16.3 % (9.3-17.3); White Blood Count 17.2 T/CUMM (4-12)
[2021-08-31] MEDS ORDERED: SODIUM CHLORIDE 0.9% 1,000 ML IV PRN (08:06)
[2021-08-31 08:14] LABS: Calcium 8.3 MG/DL (8.5-10.1); Osmolality,Calculated 296.3 MOS/KG (273-304); Potassium 3.8 MMOL/L (3.5-5.1)
[2021-08-31] MEDS: CHOLECALCIFEROL 1,000 UNIT TABLET PO SCH (08:21)
[2021-08-31] MEDS: ASPIRIN CHEW 81 MG TABLET PO SCH (08:21)
[2021-08-31] MEDS: ZINC GLUCONATE 50 MG TABLET PO SCH (08:21)
[2021-08-31] MEDS: THEOPHYLLINE ER (24 HR) 400 MG CAPSULE PO SCH (08:21)
[2021-08-31 08:22] LABS: Anisocytosis 2+; Band Neutrophils 6 % (0-10); Burr Cells Few; Eosinophils 6 % (0-10); Lymphocytes 16 % (20-55); Macrocytosis 1+; Metamyelocytes 3 %; Myelocytes 7 %; Platelet Estimate Normal; Segmented Neutrophils 57 % (50-85); Smudge Cells Few; Total Cells Counted 100
[2021-08-31] MEDS: FERROUS SULFATE 325 MG TABLET PO SCH (08:22)
[2021-08-31] MEDS: COLCHICINE 0.6 MG CAPSULE PO SCH ×2 (08:22→20:50)
[2021-08-31] MEDS: ITRACONAZOLE 100 MG CAPSULE PO SCH ×2 (08:22→20:51)
[2021-08-31] MEDS: PANTOPRAZOLE 40 MG TABLET PO SCH (08:22)
[2021-08-31] MEDS: ASCORBIC ACID 500 MG TABLET PO SCH ×2 (08:23→20:51)
[2021-08-31] MEDS: amLODIPine 10 MG TABLET PO SCH (08:23)
[2021-08-31] MEDS: predniSONE 20 MG TABLET PO SCH (08:23)
[2021-08-31] MEDS: DOCUSATE SODIUM 100 MG CAPSULE PO SCH ×2 (08:24→20:50)
[2021-08-31] MEDS: FLUTICASONE 50 MCG NASAL SPRAY 16 GM BOTTLE BOTH NARES SCH ×2 (08:25→20:50)
[2021-08-31] MEDS: HYDROCORTISONE 2.5% CREAM 30 GM TUBE TOP SCH ×3 (08:25→20:51)
[2021-08-31 08:30] LABS: % Iron Saturation 40.3 % (18-50)
[2021-08-31] MEDS ORDERED: MAGNESIUM SULF RIDER 4 GM/100 ML PREMIX IV PRN (08:42)
[2021-08-31] MEDS ORDERED: POTASSIUM CHLORIDE RIDER 10 MEQ/100 ML PREMIX IV PRN (08:44)
[2021-08-31] MEDS: MAGNESIUM SULF RIDER 2 GM/50 ML PREMIX IV PRN (09:10)
[2021-08-31] MEDS: PANTOPRAZOLE 40 MG VIAL IV SCH ×2 (09:52→20:51)
[2021-08-31] MEDS: ENOXAPARIN 80 MG/0.8 ML SYRINGE SUBCUT SCH (10:41)
[2021-08-31 19:38] LABS: Hematocrit 27.6 VOL% (42.0-52.0)
[2021-08-31] MEDS: ROSUVASTATIN 20 MG TABLET PO SCH (20:50)
[2021-08-31] MEDS: MELATONIN 3 MG TABLET PO SCH (20:51)
[2021-09-01 04:05] LABS: Basophils # 0.1 10*3/uL (0.0-0.2); Basophils % 0.4 % (0.0-0.8); Eosinophils # 0.1 10*3/uL (0.0-0.87); Eosinophils % 0.8 % (0.00-10.9); Hematocrit 26.7 VOL% (42.0-52.0); Hemoglobin 8.7 GM/DL (14.0-18.0); Immature Granulocytes % 8.3 %; Immature Granulocytes Absolute 1.13 #; Lymphocytes # 2.7 10*3/uL (1.4-4.0); Lymphocytes % 19.9 % (21.2-54.2); Mean Corpuscular HGB Conc 32.6 GM/DL (32-36); Mean Corpuscular Volume 89.6 FL (87-102); Mean Platelet Volume 9.7 FL (9.6-12.0); Monocytes % 9.5 % (1.7-12.7); NRBC # 0.02 10*3/uL; Neutrophils % 61.1 % (38.7-73.9); Platelet Count 382 T/CUMM (130-400); Red Blood Count 2.98 MC/CUMM (3.8-5.5); Red Cell Distribution Width 15.9 % (9.3-17.3); White Blood Count 13.6 T/CUMM (4-12)
[2021-09-01 04:26] LABS: Calcium 8.3 MG/DL (8.5-10.1); Osmolality,Calculated 284.8 MOS/KG (273-304); Potassium 4.1 MMOL/L (3.5-5.1)
[2021-09-01 04:46] LABS: Band Neutrophils 1 % (0-10); Hypochromia 1+; Lymphocytes 21 % (20-55); Microcytosis 1+; Platelet Estimate Adequate; Segmented Neutrophils 71 % (50-85); Total Cells Counted 100
[2021-09-01] MEDS: ALBUTEROL/IPRATROPIUM 3 ML NEB RESP TX SCH ×3 (07:55→19:10)
[2021-09-01] MEDS: BUDESONIDE 0.25 MG/2 ML NEB RESP TX SCH ×2 (07:55→19:10)
[2021-09-01] MEDS: PANTOPRAZOLE 40 MG VIAL IV SCH ×2 (08:57→21:42)
[2021-09-01] MEDS: predniSONE 20 MG TABLET PO SCH (08:58)
[2021-09-01] MEDS: ITRACONAZOLE 100 MG CAPSULE PO SCH ×2 (08:58→21:42)
[2021-09-01] MEDS: amLODIPine 10 MG TABLET PO SCH (08:58)
[2021-09-01] MEDS: FERROUS SULFATE 325 MG TABLET PO SCH (08:58)
[2021-09-01] MEDS: ASPIRIN CHEW 81 MG TABLET PO SCH (08:58)
[2021-09-01] MEDS: CHOLECALCIFEROL 1,000 UNIT TABLET PO SCH (08:59)
[2021-09-01] MEDS: FLUTICASONE 50 MCG NASAL SPRAY 16 GM BOTTLE BOTH NARES SCH ×2 (08:59→21:49)
[2021-09-01] MEDS: ASCORBIC ACID 500 MG TABLET PO SCH ×2 (08:59→21:42)
[2021-09-01] MEDS: THEOPHYLLINE ER (24 HR) 400 MG CAPSULE PO SCH (08:59)
[2021-09-01] MEDS: ZINC GLUCONATE 50 MG TABLET PO SCH (08:59)
[2021-09-01] MEDS: DOCUSATE SODIUM 100 MG CAPSULE PO SCH ×2 (09:00→20:29)
[2021-09-01] MEDS: HYDROCORTISONE 2.5% CREAM 30 GM TUBE TOP SCH ×3 (09:01→20:29)
[2021-09-01] MEDS: ENOXAPARIN 80 MG/0.8 ML SYRINGE SUBCUT SCH (11:43)
[2021-09-01] MEDS: ONDANSETRON 4 MG/2 ML VIAL IV PRN (14:32)
[2021-09-01 15:27] LABS: Hematocrit 28.9 VOL% (42.0-52.0); Hemoglobin 9.6 GM/DL (14.0-18.0)
[2021-09-01] MEDS: ROSUVASTATIN 20 MG TABLET PO SCH (21:42)
[2021-09-01] MEDS: MELATONIN 3 MG TABLET PO SCH (21:42)
[2021-09-02 04:55] LABS: Basophils # 0.1 10*3/uL (0.0-0.2); Basophils % 0.8 % (0.0-0.8); Eosinophils # 1.1 10*3/uL (0.0-0.87); Eosinophils % 8.8 % (0.00-10.9); Hematocrit 27.6 VOL% (42.0-52.0); Hemoglobin 8.7 GM/DL (14.0-18.0); Immature Granulocytes % 6.3 %; Immature Granulocytes Absolute 0.75 #; Lymphocytes # 2.2 10*3/uL (1.4-4.0); Mean Corpuscular HGB Conc 31.5 GM/DL (32-36); Mean Platelet Volume 9.3 FL (9.6-12.0); Monocytes % 10.9 % (1.7-12.7); Neutrophils % 55.2 % (38.7-73.9); Platelet Count 372 T/CUMM (130-400); Red Cell Distribution Width 16.1 % (9.3-17.3)
[2021-09-02 05:02] LABS: Calcium 8.3 MG/DL (8.5-10.1); Osmolality,Calculated 285.7 MOS/KG (273-304)
[2021-09-02 05:16] LABS: Band Neutrophils 1 % (0-10); Eosinophils 9 % (0-10); Hypochromia 1+; Lymphocytes 17 % (20-55); Microcytosis 1+; Platelet Estimate Adequate; Segmented Neutrophils 63 % (50-85); Total Cells Counted 100
[2021-09-02] MEDS: BUDESONIDE 0.25 MG/2 ML NEB RESP TX SCH ×2 (07:28→18:50)
[2021-09-02] MEDS: ALBUTEROL/IPRATROPIUM 3 ML NEB RESP TX SCH ×3 (07:28→18:50)
[2021-09-02] MEDS: PANTOPRAZOLE 40 MG VIAL IV SCH ×2 (08:51→21:18)
[2021-09-02] MEDS: ZINC GLUCONATE 50 MG TABLET PO SCH (08:51)
[2021-09-02] MEDS: ASPIRIN CHEW 81 MG TABLET PO SCH (08:51)
[2021-09-02] MEDS: CHOLECALCIFEROL 1,000 UNIT TABLET PO SCH (08:51)
[2021-09-02] MEDS: ASCORBIC ACID 500 MG TABLET PO SCH ×2 (08:52→21:17)
[2021-09-02] MEDS: amLODIPine 10 MG TABLET PO SCH (08:52)
[2021-09-02] MEDS: predniSONE 20 MG TABLET PO SCH (08:52)
[2021-09-02] MEDS: THEOPHYLLINE ER (24 HR) 400 MG CAPSULE PO SCH (08:52)
[2021-09-02] MEDS: ITRACONAZOLE 100 MG CAPSULE PO SCH ×2 (08:52→21:17)
[2021-09-02] MEDS: FERROUS SULFATE 325 MG TABLET PO SCH (08:52)
[2021-09-02] MEDS: FLUTICASONE 50 MCG NASAL SPRAY 16 GM BOTTLE BOTH NARES SCH ×2 (08:53→21:18)
[2021-09-02] MEDS: HYDROCORTISONE 2.5% CREAM 30 GM TUBE TOP SCH ×3 (09:09→21:21)
[2021-09-02] MEDS: DOCUSATE SODIUM 100 MG CAPSULE PO SCH ×2 (09:09→21:15)
[2021-09-02] MEDS: ENOXAPARIN 80 MG/0.8 ML SYRINGE SUBCUT SCH (12:40)
[2021-09-02] MEDS ORDERED: ALPRAZolam 0.25 MG TABLET PO ONE (13:59)
[2021-09-02] MEDS: MELATONIN 3 MG TABLET PO SCH (21:17)
[2021-09-02] MEDS: ROSUVASTATIN 20 MG TABLET PO SCH (21:17)
[2021-09-03 04:49] LABS: Basophils # 0.1 10*3/uL (0.0-0.2); Basophils % 0.5 % (0.0-0.8); Eosinophils # 0.4 10*3/uL (0.0-0.87); Eosinophils % 3.4 % (0.00-10.9); Hemoglobin 7.8 GM/DL (14.0-18.0); Lymphocytes # 2.1 10*3/uL (1.4-4.0); Lymphocytes % 18.9 % (21.2-54.2); Mean Corpuscular HGB Conc 32.5 GM/DL (32-36); Mean Corpuscular Volume 90.9 FL (87-102); Mean Platelet Volume 9.9 FL (9.6-12.0); Monocytes % 9.8 % (1.7-12.7); Neutrophils % 60.8 % (38.7-73.9); Platelet Count 363 T/CUMM (130-400); Red Blood Count 2.64 MC/CUMM (3.8-5.5); Red Cell Distribution Width 15.9 % (9.3-17.3)
[2021-09-03 05:11] LABS: Band Neutrophils 1 % (0-10); Eosinophils 4 % (0-10); Lymphocytes 19 % (20-55); Metamyelocytes 4 %; Myelocytes 2 %; Promyelocytes 1 %; Segmented Neutrophils 58 % (50-85)
[2021-09-03 05:12] LABS: Calcium 7.9 MG/DL (8.5-10.1); Microcytosis 1+; Osmolality,Calculated 287.5 MOS/KG (273-304); Ovalocytes Slight; Platelet Estimate Normal; Potassium 3.8 MMOL/L (3.5-5.1)
[2021-09-03] MEDS: ACETAMINOPHEN 325 MG TABLET PO PRN (06:28)
[2021-09-03] MEDS: ALBUTEROL/IPRATROPIUM 3 ML NEB RESP TX SCH ×3 (07:00→19:33)
[2021-09-03] MEDS: BUDESONIDE 0.25 MG/2 ML NEB RESP TX SCH ×2 (07:00→19:33)
[2021-09-03] MEDS: ITRACONAZOLE 100 MG CAPSULE PO SCH ×2 (09:12→21:05)
[2021-09-03] MEDS: FERROUS SULFATE 325 MG TABLET PO SCH (09:12)
[2021-09-03] MEDS: CHOLECALCIFEROL 1,000 UNIT TABLET PO SCH (09:12)
[2021-09-03] MEDS: THEOPHYLLINE ER (24 HR) 400 MG CAPSULE PO SCH (09:13)
[2021-09-03] MEDS: amLODIPine 10 MG TABLET PO SCH (09:13)
[2021-09-03] MEDS: ASPIRIN CHEW 81 MG TABLET PO SCH (09:13)
[2021-09-03] MEDS: predniSONE 20 MG TABLET PO SCH (09:13)
[2021-09-03] MEDS: ASCORBIC ACID 500 MG TABLET PO SCH ×2 (09:13→21:05)
[2021-09-03] MEDS: ZINC GLUCONATE 50 MG TABLET PO SCH (09:13)
[2021-09-03] MEDS: FLUTICASONE 50 MCG NASAL SPRAY 16 GM BOTTLE BOTH NARES SCH ×2 (09:14→21:06)
[2021-09-03] MEDS: PANTOPRAZOLE 40 MG VIAL IV SCH ×2 (09:15→21:06)
[2021-09-03] MEDS: HYDROCORTISONE 2.5% CREAM 30 GM TUBE TOP SCH (09:17)
[2021-09-03] MEDS: DOCUSATE SODIUM 100 MG CAPSULE PO SCH ×2 (09:17→21:05)
[2021-09-03] MEDS: MAGNESIUM SULF RIDER 2 GM/50 ML PREMIX IV PRN (09:23)
[2021-09-03] MEDS ORDERED: HYDROCORTISONE 2.5% CREAM 30 GM TUBE TOP PRN (10:24)
[2021-09-03] MEDS: ENOXAPARIN 80 MG/0.8 ML SYRINGE SUBCUT SCH (11:08)
[2021-09-03] MEDS: ROSUVASTATIN 20 MG TABLET PO SCH (21:05)
[2021-09-03] MEDS: MELATONIN 3 MG TABLET PO SCH (21:05)
[2021-09-04] MEDS: ACETAMINOPHEN 325 MG TABLET PO PRN (02:32)
[2021-09-04] MEDS: ALBUTEROL/IPRATROPIUM 3 ML NEB RESP TX SCH ×3 (07:05→19:07)
[2021-09-04] MEDS: BUDESONIDE 0.25 MG/2 ML NEB RESP TX SCH ×2 (07:05→19:07)
[2021-09-04] MEDS: ZINC GLUCONATE 50 MG TABLET PO SCH (08:13)
[2021-09-04] MEDS: ASPIRIN CHEW 81 MG TABLET PO SCH (08:13)
[2021-09-04] MEDS: amLODIPine 10 MG TABLET PO SCH (08:14)
[2021-09-04] MEDS: THEOPHYLLINE ER (24 HR) 400 MG CAPSULE PO SCH (08:14)
[2021-09-04] MEDS: ASCORBIC ACID 500 MG TABLET PO SCH ×2 (08:14→20:57)
[2021-09-04] MEDS: CHOLECALCIFEROL 1,000 UNIT TABLET PO SCH (08:14)
[2021-09-04] MEDS: FERROUS SULFATE 325 MG TABLET PO SCH (08:14)
[2021-09-04] MEDS: ITRACONAZOLE 100 MG CAPSULE PO SCH ×2 (08:14→20:57)
[2021-09-04] MEDS: predniSONE 20 MG TABLET PO SCH (08:15)
[2021-09-04] MEDS: DOCUSATE SODIUM 100 MG CAPSULE PO SCH ×2 (08:15→20:59)
[2021-09-04] MEDS: PANTOPRAZOLE 40 MG VIAL IV SCH ×2 (08:16→21:00)
[2021-09-04] MEDS: FLUTICASONE 50 MCG NASAL SPRAY 16 GM BOTTLE BOTH NARES SCH ×2 (08:16→21:02)
[2021-09-04] MEDS: ENOXAPARIN 80 MG/0.8 ML SYRINGE SUBCUT SCH (11:02)
[2021-09-04] MEDS: ROSUVASTATIN 20 MG TABLET PO SCH (20:58)
[2021-09-04] MEDS: MELATONIN 3 MG TABLET PO SCH (20:58)
[2021-09-05] MEDS: BUDESONIDE 0.25 MG/2 ML NEB RESP TX SCH (07:07)
[2021-09-05] MEDS: ALBUTEROL/IPRATROPIUM 3 ML NEB RESP TX SCH ×3 (07:07→18:30)
[2021-09-05] MEDS: FLUTICASONE 50 MCG NASAL SPRAY 16 GM BOTTLE BOTH NARES SCH ×2 (08:33→21:18)
[2021-09-05] MEDS: THEOPHYLLINE ER (24 HR) 400 MG CAPSULE PO SCH (08:33)
[2021-09-05] MEDS: PANTOPRAZOLE 40 MG VIAL IV SCH ×2 (08:33→21:19)
[2021-09-05] MEDS: predniSONE 20 MG TABLET PO SCH (08:33)
[2021-09-05] MEDS: ITRACONAZOLE 100 MG CAPSULE PO SCH ×2 (08:33→21:18)
[2021-09-05] MEDS: ZINC GLUCONATE 50 MG TABLET PO SCH (08:33)
[2021-09-05] MEDS: ASPIRIN CHEW 81 MG TABLET PO SCH (08:33)
[2021-09-05] MEDS: amLODIPine 10 MG TABLET PO SCH (08:34)
[2021-09-05] MEDS: ASCORBIC ACID 500 MG TABLET PO SCH ×2 (08:34→21:18)
[2021-09-05] MEDS: CHOLECALCIFEROL 1,000 UNIT TABLET PO SCH (08:34)
[2021-09-05] MEDS: FERROUS SULFATE 325 MG TABLET PO SCH (08:35)
[2021-09-05] MEDS: DOCUSATE SODIUM 100 MG CAPSULE PO SCH ×2 (10:59→21:18)
[2021-09-05] MEDS: ENOXAPARIN 80 MG/0.8 ML SYRINGE SUBCUT SCH (11:43)
[2021-09-05] MEDS: ROSUVASTATIN 20 MG TABLET PO SCH (21:18)
[2021-09-05] MEDS: MELATONIN 3 MG TABLET PO SCH (21:18)
[2021-09-06 05:00] LABS: Calcium 8.4 MG/DL (8.5-10.1); Osmolality,Calculated 280.8 MOS/KG (273-304); Potassium 3.5 MMOL/L (3.5-5.1)
[2021-09-06] MEDS: ALBUTEROL/IPRATROPIUM 3 ML NEB RESP TX SCH ×3 (07:01→19:37)
[2021-09-06] MEDS: BUDESONIDE 0.25 MG/2 ML NEB RESP TX SCH ×2 (07:01→19:58)
[2021-09-06] MEDS: FERROUS SULFATE 325 MG TABLET PO SCH (08:30)
[2021-09-06] MEDS: ASCORBIC ACID 500 MG TABLET PO SCH ×2 (08:30→21:50)
[2021-09-06] MEDS: PANTOPRAZOLE 40 MG VIAL IV SCH ×2 (08:30→21:51)
[2021-09-06] MEDS: DOCUSATE SODIUM 100 MG CAPSULE PO SCH ×2 (08:30→21:50)
[2021-09-06] MEDS: amLODIPine 10 MG TABLET PO SCH (08:31)
[2021-09-06] MEDS: ZINC GLUCONATE 50 MG TABLET PO SCH (08:31)
[2021-09-06] MEDS: predniSONE 20 MG TABLET PO SCH (08:31)
[2021-09-06] MEDS: CHOLECALCIFEROL 1,000 UNIT TABLET PO SCH (08:31)
[2021-09-06] MEDS: THEOPHYLLINE ER (24 HR) 400 MG CAPSULE PO SCH (08:31)
[2021-09-06] MEDS: ASPIRIN CHEW 81 MG TABLET PO SCH (08:31)
[2021-09-06] MEDS: ITRACONAZOLE 100 MG CAPSULE PO SCH ×2 (08:31→21:50)
[2021-09-06] MEDS: FLUTICASONE 50 MCG NASAL SPRAY 16 GM BOTTLE BOTH NARES SCH ×2 (08:35→21:51)
[2021-09-06] MEDS: ENOXAPARIN 80 MG/0.8 ML SYRINGE SUBCUT SCH (12:14)
[2021-09-06] MEDS: ROSUVASTATIN 20 MG TABLET PO SCH (21:50)
[2021-09-06] MEDS: MELATONIN 3 MG TABLET PO SCH (21:50)
[2021-09-06] MEDS: ZALEPLON 5 MG CAPSULE PO SCH (21:51)
[2021-09-07] MEDS: BUDESONIDE 0.25 MG/2 ML NEB RESP TX SCH ×2 (07:15→20:10)
[2021-09-07] MEDS: ALBUTEROL/IPRATROPIUM 3 ML NEB RESP TX SCH ×3 (07:15→20:10)
[2021-09-07] MEDS: FLUTICASONE 50 MCG NASAL SPRAY 16 GM BOTTLE BOTH NARES SCH ×2 (09:31→22:00)
[2021-09-07] MEDS: ZINC GLUCONATE 50 MG TABLET PO SCH (09:32)
[2021-09-07] MEDS: THEOPHYLLINE ER (24 HR) 400 MG CAPSULE PO SCH (09:32)
[2021-09-07] MEDS: CHOLECALCIFEROL 1,000 UNIT TABLET PO SCH (09:32)
[2021-09-07] MEDS: ASPIRIN CHEW 81 MG TABLET PO SCH (09:32)
[2021-09-07] MEDS: ASCORBIC ACID 500 MG TABLET PO SCH ×2 (09:32→21:48)
[2021-09-07] MEDS: DOCUSATE SODIUM 100 MG CAPSULE PO SCH ×2 (09:32→21:49)
[2021-09-07] MEDS: FERROUS SULFATE 325 MG TABLET PO SCH (09:32)
[2021-09-07] MEDS: amLODIPine 10 MG TABLET PO SCH (09:32)
[2021-09-07] MEDS: PANTOPRAZOLE 40 MG VIAL IV SCH ×2 (09:33→21:49)
[2021-09-07] MEDS: ENOXAPARIN 80 MG/0.8 ML SYRINGE SUBCUT SCH (11:51)
[2021-09-07] MEDS ORDERED: LACTULOSE 20 GM/30 ML UDCUP PO ONE (16:04)
[2021-09-07] MEDS: POLYETHYLENE GLYCOL POWDER 17 GM PACK PO SCH (21:47)
[2021-09-07] MEDS: MELATONIN 3 MG TABLET PO SCH (21:47)
[2021-09-07] MEDS: ROSUVASTATIN 20 MG TABLET PO SCH (21:49)
[2021-09-07] MEDS: ZALEPLON 5 MG CAPSULE PO SCH (21:49)
[2021-09-07] MEDS: ACETAMINOPHEN 325 MG TABLET PO PRN (21:52)
[2021-09-08 06:20] LABS: Basophils # 0.2 10*3/uL (0.0-0.2); Eosinophils # 0.9 10*3/uL (0.0-0.87); Eosinophils % 5.9 % (0.00-10.9); Hematocrit 28.2 VOL% (42.0-52.0); Hemoglobin 9.2 GM/DL (14.0-18.0); Immature Granulocytes Absolute 0.58 #; Lymphocytes # 2.1 10*3/uL (1.4-4.0); Lymphocytes % 14.8 % (21.2-54.2); Mean Corpuscular HGB Conc 32.6 GM/DL (32-36); Mean Corpuscular Volume 89.5 FL (87-102); Mean Platelet Volume 10.1 FL (9.6-12.0); Monocytes % 11.3 % (1.7-12.7); Platelet Count 426 T/CUMM (130-400); Red Blood Count 3.15 MC/CUMM (3.8-5.5); Red Cell Distribution Width 16.6 % (9.3-17.3); White Blood Count 14.5 T/CUMM (4-12)
[2021-09-08 06:22] LABS: Calcium 8.4 MG/DL (8.5-10.1); Osmolality,Calculated 283.4 MOS/KG (273-304); Potassium 3.4 MMOL/L (3.5-5.1)
[2021-09-08 06:48] LABS: Lymphocytes 17 % (20-55); Platelet Estimate Increased; Segmented Neutrophils 73 % (50-85); Total Cells Counted 100
[2021-09-08] MEDS: ALBUTEROL/IPRATROPIUM 3 ML NEB RESP TX SCH ×3 (07:15→20:10)
[2021-09-08] MEDS: BUDESONIDE 0.25 MG/2 ML NEB RESP TX SCH ×2 (07:15→20:10)
[2021-09-08] MEDS: LINACLOTIDE 145 MCG CAPSULE PO SCH (09:49)
[2021-09-08] MEDS: ASPIRIN CHEW 81 MG TABLET PO SCH (09:50)
[2021-09-08] MEDS: FERROUS SULFATE 325 MG TABLET PO SCH (09:50)
[2021-09-08] MEDS: ASCORBIC ACID 500 MG TABLET PO SCH ×2 (09:50→21:20)
[2021-09-08] MEDS: amLODIPine 10 MG TABLET PO SCH (09:51)
[2021-09-08] MEDS: THEOPHYLLINE ER (24 HR) 400 MG CAPSULE PO SCH (09:51)
[2021-09-08] MEDS: DOCUSATE SODIUM 100 MG CAPSULE PO SCH ×2 (09:51→21:21)
[2021-09-08] MEDS: ZINC GLUCONATE 50 MG TABLET PO SCH (09:51)
[2021-09-08] MEDS: CHOLECALCIFEROL 1,000 UNIT TABLET PO SCH (09:51)
[2021-09-08] MEDS: FLUTICASONE 50 MCG NASAL SPRAY 16 GM BOTTLE BOTH NARES SCH ×2 (09:52→21:22)
[2021-09-08] MEDS: POLYETHYLENE GLYCOL POWDER 17 GM PACK PO SCH ×3 (09:53→21:23)
[2021-09-08] MEDS: PANTOPRAZOLE 40 MG VIAL IV SCH ×2 (09:53→21:21)
[2021-09-08] MEDS: ENOXAPARIN 80 MG/0.8 ML SYRINGE SUBCUT SCH (11:52)
[2021-09-08] MEDS ORDERED: SODIUM PHOSPHATE ENEMA 133 ML BOTTLE RECTAL PRN (14:46)
[2021-09-08] MEDS: ROSUVASTATIN 20 MG TABLET PO SCH (21:18)
[2021-09-08] MEDS: MELATONIN 3 MG TABLET PO SCH (21:20)
[2021-09-08] MEDS: LUBIPROSTONE 8 MCG CAPSULE PO SCH (21:21)
[2021-09-08] MEDS: ZALEPLON 5 MG CAPSULE PO SCH (21:21)
[2021-09-09 05:40] LABS: Calcium 8.5 MG/DL (8.5-10.1); Osmolality,Calculated 285.5 MOS/KG (273-304); Potassium 3.4 MMOL/L (3.5-5.1)
[2021-09-09] MEDS: ALBUTEROL/IPRATROPIUM 3 ML NEB RESP TX SCH ×3 (07:44→19:20)
[2021-09-09] MEDS: BUDESONIDE 0.25 MG/2 ML NEB RESP TX SCH (07:45)
[2021-09-09] MEDS ORDERED: POTASSIUM CHLORIDE 20 MEQ TABLET PO ONE (08:16)
[2021-09-09] MEDS: LUBIPROSTONE 8 MCG CAPSULE PO SCH (09:05)
[2021-09-09] MEDS: LINACLOTIDE 145 MCG CAPSULE PO SCH (09:05)
[2021-09-09] MEDS: THEOPHYLLINE ER (24 HR) 400 MG CAPSULE PO SCH (09:06)
[2021-09-09] MEDS: MAGNESIUM CHLORIDE 64 MG TABLET PO SCH (09:06)
[2021-09-09] MEDS: amLODIPine 10 MG TABLET PO SCH (09:06)
[2021-09-09] MEDS: CHOLECALCIFEROL 1,000 UNIT TABLET PO SCH (09:06)
[2021-09-09] MEDS: PANTOPRAZOLE 40 MG TABLET PO SCH (09:07)
[2021-09-09] MEDS: FERROUS SULFATE 325 MG TABLET PO SCH (09:07)
[2021-09-09] MEDS: DOCUSATE SODIUM 100 MG CAPSULE PO SCH ×2 (09:07→20:23)
[2021-09-09] MEDS: ASCORBIC ACID 500 MG TABLET PO SCH ×2 (09:07→20:24)
[2021-09-09] MEDS: ASPIRIN CHEW 81 MG TABLET PO SCH (09:07)
[2021-09-09] MEDS: POLYETHYLENE GLYCOL POWDER 17 GM PACK PO SCH ×3 (09:08→20:25)
[2021-09-09] MEDS: FLUTICASONE 50 MCG NASAL SPRAY 16 GM BOTTLE BOTH NARES SCH ×2 (09:08→20:28)
[2021-09-09] MEDS: ENOXAPARIN 80 MG/0.8 ML SYRINGE SUBCUT SCH (11:53)
[2021-09-09] MEDS: ONDANSETRON 4 MG/2 ML VIAL IV PRN (12:54)
[2021-09-09] MEDS: ROSUVASTATIN 20 MG TABLET PO SCH (20:23)
[2021-09-09] MEDS: ZALEPLON 5 MG CAPSULE PO SCH (21:53)
[2021-09-10] MEDS: ALBUTEROL/IPRATROPIUM 3 ML NEB RESP TX SCH ×3 (07:06→19:11)
[2021-09-10 07:36] LABS: Calcium 9.1 MG/DL (8.5-10.1); Osmolality,Calculated 284.5 MOS/KG (273-304); Potassium 3.9 MMOL/L (3.5-5.1)
[2021-09-10] MEDS: ASPIRIN CHEW 81 MG TABLET PO SCH (08:27)
[2021-09-10] MEDS: POTASSIUM CHLORIDE 20 MEQ TABLET PO SCH (08:27)
[2021-09-10] MEDS: CHOLECALCIFEROL 1,000 UNIT TABLET PO SCH (08:27)
[2021-09-10] MEDS: ASCORBIC ACID 500 MG TABLET PO SCH ×2 (08:27→20:26)
[2021-09-10] MEDS: DOCUSATE SODIUM 100 MG CAPSULE PO SCH ×2 (08:27→20:25)
[2021-09-10] MEDS: MAGNESIUM CHLORIDE 64 MG TABLET PO SCH (08:28)
[2021-09-10] MEDS: FLUTICASONE 50 MCG NASAL SPRAY 16 GM BOTTLE BOTH NARES SCH ×2 (08:28→20:26)
[2021-09-10] MEDS: FERROUS SULFATE 325 MG TABLET PO SCH (08:28)
[2021-09-10] MEDS: amLODIPine 10 MG TABLET PO SCH (08:28)
[2021-09-10] MEDS: THEOPHYLLINE ER (24 HR) 400 MG CAPSULE PO SCH (08:28)
[2021-09-10] MEDS: PANTOPRAZOLE 40 MG TABLET PO SCH (08:28)
[2021-09-10] MEDS: POLYETHYLENE GLYCOL POWDER 17 GM PACK PO SCH ×2 (10:20→20:25)
[2021-09-10] MEDS: LINACLOTIDE 145 MCG CAPSULE PO SCH (10:21)
[2021-09-10] MEDS: ENOXAPARIN 80 MG/0.8 ML SYRINGE SUBCUT SCH (11:40)
[2021-09-10] MEDS: DEXAMETHASONE 4 MG/1 ML VIAL IV SCH ×2 (11:40→22:54)
[2021-09-10] MEDS: CLORAZEPATE 3.75 MG TABLET PO PRN (13:46)
[2021-09-10] MEDS: ZALEPLON 5 MG CAPSULE PO SCH (20:26)
[2021-09-10] MEDS: ROSUVASTATIN 20 MG TABLET PO SCH (20:26)
[2021-09-11 04:15] LABS: Basophils # 0.1 10*3/uL (0.0-0.2); Basophils % 0.5 % (0.0-0.8); Hemoglobin 9.2 GM/DL (14.0-18.0); Immature Granulocytes % 3.5 %; Immature Granulocytes Absolute 0.39 #; Lymphocytes # 1.1 10*3/uL (1.4-4.0); Lymphocytes % 9.8 % (21.2-54.2); Mean Corpuscular HGB Conc 32.9 GM/DL (32-36); Mean Corpuscular Volume 88.6 FL (87-102); Mean Platelet Volume 9.7 FL (9.6-12.0); Monocytes % 1.9 % (1.7-12.7); Neutrophils % 84.3 % (38.7-73.9); Platelet Count 386 T/CUMM (130-400); Red Blood Count 3.16 MC/CUMM (3.8-5.5); Red Cell Distribution Width 16.8 % (9.3-17.3); White Blood Count 11.2 T/CUMM (4-12)
[2021-09-11 04:30] LABS: Calcium 8.8 MG/DL (8.5-10.1); Osmolality,Calculated 285.5 MOS/KG (273-304); Potassium 4.6 MMOL/L (3.5-5.1)
[2021-09-11] MEDS: ALBUTEROL/IPRATROPIUM 3 ML NEB RESP TX SCH ×3 (07:13→19:10)
[2021-09-11] MEDS: FERROUS SULFATE 325 MG TABLET PO SCH (08:20)
[2021-09-11] MEDS: THEOPHYLLINE ER (24 HR) 400 MG CAPSULE PO SCH (08:20)
[2021-09-11] MEDS: POTASSIUM CHLORIDE 20 MEQ TABLET PO SCH (08:20)
[2021-09-11] MEDS: ASPIRIN CHEW 81 MG TABLET PO SCH (08:20)
[2021-09-11] MEDS: ASCORBIC ACID 500 MG TABLET PO SCH ×2 (08:20→21:28)
[2021-09-11] MEDS: PANTOPRAZOLE 40 MG TABLET PO SCH (08:20)
[2021-09-11] MEDS: DOCUSATE SODIUM 100 MG CAPSULE PO SCH ×2 (08:21→21:28)
[2021-09-11] MEDS: amLODIPine 10 MG TABLET PO SCH (08:21)
[2021-09-11] MEDS: MAGNESIUM CHLORIDE 64 MG TABLET PO SCH (08:21)
[2021-09-11] MEDS: CHOLECALCIFEROL 1,000 UNIT TABLET PO SCH (08:21)
[2021-09-11] MEDS: FLUTICASONE 50 MCG NASAL SPRAY 16 GM BOTTLE BOTH NARES SCH ×2 (08:23→21:32)
[2021-09-11] MEDS: LINACLOTIDE 145 MCG CAPSULE PO SCH (08:23)
[2021-09-11] MEDS: POLYETHYLENE GLYCOL POWDER 17 GM PACK PO SCH ×2 (08:25→21:20)
[2021-09-11] MEDS: DEXAMETHASONE 4 MG/1 ML VIAL IV SCH (12:15)
[2021-09-11] MEDS: ENOXAPARIN 80 MG/0.8 ML SYRINGE SUBCUT SCH (12:18)
[2021-09-11] MEDS: CLORAZEPATE 3.75 MG TABLET PO PRN (12:29)
[2021-09-11] MEDS: ZALEPLON 5 MG CAPSULE PO SCH (21:28)
[2021-09-11] MEDS: ROSUVASTATIN 20 MG TABLET PO SCH (21:28)
[2021-09-12] MEDS: DEXAMETHASONE 4 MG/1 ML VIAL IV SCH ×2 (00:17→12:12)
[2021-09-12 06:26] LABS: Basophils % 0.2 % (0.0-0.8); Hematocrit 26.4 VOL% (42.0-52.0); Hemoglobin 8.6 GM/DL (14.0-18.0); Immature Granulocytes % 2.5 %; Immature Granulocytes Absolute 0.43 #; Lymphocytes # 1.1 10*3/uL (1.4-4.0); Lymphocytes % 6.6 % (21.2-54.2); Mean Corpuscular HGB Conc 32.6 GM/DL (32-36); Mean Corpuscular Volume 91.3 FL (87-102); Mean Platelet Volume 10.3 FL (9.6-12.0); Monocytes % 2.3 % (1.7-12.7); Neutrophils % 88.4 % (38.7-73.9); Platelet Count 384 T/CUMM (130-400); Red Blood Count 2.89 MC/CUMM (3.8-5.5); Red Cell Distribution Width 17.2 % (9.3-17.3)
[2021-09-12 06:38] LABS: Calcium 9.1 MG/DL (8.5-10.1); Osmolality,Calculated 286.7 MOS/KG (273-304); Potassium 4.8 MMOL/L (3.5-5.1)
[2021-09-12] MEDS: ALBUTEROL/IPRATROPIUM 3 ML NEB RESP TX SCH ×3 (07:10→19:21)
[2021-09-12] MEDS: ASPIRIN CHEW 81 MG TABLET PO SCH (09:41)
[2021-09-12] MEDS: DOCUSATE SODIUM 100 MG CAPSULE PO SCH (09:41)
[2021-09-12] MEDS: LINACLOTIDE 145 MCG CAPSULE PO SCH (09:41)
[2021-09-12] MEDS: amLODIPine 10 MG TABLET PO SCH (09:42)
[2021-09-12] MEDS: PANTOPRAZOLE 40 MG TABLET PO SCH (09:42)
[2021-09-12] MEDS: ASCORBIC ACID 500 MG TABLET PO SCH ×2 (09:42→20:08)
[2021-09-12] MEDS: CHOLECALCIFEROL 1,000 UNIT TABLET PO SCH (09:42)
[2021-09-12] MEDS: FERROUS SULFATE 325 MG TABLET PO SCH (09:42)
[2021-09-12] MEDS: THEOPHYLLINE ER (24 HR) 400 MG CAPSULE PO SCH (09:42)
[2021-09-12] MEDS: POTASSIUM CHLORIDE 20 MEQ TABLET PO SCH (09:42)
[2021-09-12] MEDS: POLYETHYLENE GLYCOL POWDER 17 GM PACK PO SCH (09:43)
[2021-09-12] MEDS: FLUTICASONE 50 MCG NASAL SPRAY 16 GM BOTTLE BOTH NARES SCH ×2 (09:43→20:08)
[2021-09-12] MEDS: MAGNESIUM CHLORIDE 64 MG TABLET PO SCH (10:06)
[2021-09-12] MEDS: ENOXAPARIN 80 MG/0.8 ML SYRINGE SUBCUT SCH (12:12)
[2021-09-12] MEDS ORDERED: DOCUSATE SODIUM 100 MG CAPSULE PO PRN (17:45)
[2021-09-12] MEDS: ROSUVASTATIN 20 MG TABLET PO SCH (20:08)
[2021-09-12] MEDS: ZALEPLON 5 MG CAPSULE PO SCH (20:08)
[2021-09-13] MEDS: DEXAMETHASONE 4 MG/1 ML VIAL IV SCH ×2 (00:38→12:32)
[2021-09-13 05:30] LABS: Basophils # 0.1 10*3/uL (0.0-0.2); Basophils % 0.3 % (0.0-0.8); Hematocrit 25.9 VOL% (42.0-52.0); Hemoglobin 8.1 GM/DL (14.0-18.0); Immature Granulocytes % 2.7 %; Immature Granulocytes Absolute 0.43 #; Lymphocytes # 1.1 10*3/uL (1.4-4.0); Lymphocytes % 6.9 % (21.2-54.2); Mean Corpuscular HGB Conc 31.3 GM/DL (32-36); Mean Corpuscular Volume 93.5 FL (87-102); Mean Platelet Volume 10.3 FL (9.6-12.0); Monocytes % 3.4 % (1.7-12.7); Neutrophils % 86.7 % (38.7-73.9); Platelet Count 345 T/CUMM (130-400); Red Blood Count 2.77 MC/CUMM (3.8-5.5); Red Cell Distribution Width 17.2 % (9.3-17.3); White Blood Count 16.1 T/CUMM (4-12)
[2021-09-13 05:49] LABS: Calcium 8.6 MG/DL (8.5-10.1); Osmolality,Calculated 294.3 MOS/KG (273-304); Potassium 4.7 MMOL/L (3.5-5.1)
[2021-09-13] MEDS: ALBUTEROL/IPRATROPIUM 3 ML NEB RESP TX SCH ×3 (07:15→19:01)
[2021-09-13] MEDS: MAGNESIUM CHLORIDE 64 MG TABLET PO SCH (08:23)
[2021-09-13] MEDS: FERROUS SULFATE 325 MG TABLET PO SCH (08:23)
[2021-09-13] MEDS: ASCORBIC ACID 500 MG TABLET PO SCH ×2 (08:23→21:15)
[2021-09-13] MEDS: THEOPHYLLINE ER (24 HR) 400 MG CAPSULE PO SCH (08:23)
[2021-09-13] MEDS: ASPIRIN CHEW 81 MG TABLET PO SCH (08:23)
[2021-09-13] MEDS: PANTOPRAZOLE 40 MG TABLET PO SCH (08:24)
[2021-09-13] MEDS: FLUTICASONE 50 MCG NASAL SPRAY 16 GM BOTTLE BOTH NARES SCH ×2 (08:24→21:17)
[2021-09-13] MEDS: POTASSIUM CHLORIDE 20 MEQ TABLET PO SCH (08:24)
[2021-09-13] MEDS: amLODIPine 10 MG TABLET PO SCH (08:24)
[2021-09-13] MEDS: CHOLECALCIFEROL 1,000 UNIT TABLET PO SCH (08:24)
[2021-09-13] MEDS: CLORAZEPATE 3.75 MG TABLET PO PRN (11:09)
[2021-09-13] MEDS: ENOXAPARIN 80 MG/0.8 ML SYRINGE SUBCUT SCH (12:31)
[2021-09-13] MEDS: ROSUVASTATIN 20 MG TABLET PO SCH (21:14)
[2021-09-13] MEDS: ZALEPLON 5 MG CAPSULE PO SCH (21:15)
[2021-09-13] MEDS: POLYETHYLENE GLYCOL POWDER 17 GM PACK PO SCH (21:18)
[2021-09-13] MEDS: DOCUSATE SODIUM 100 MG CAPSULE PO SCH (21:18)
[2021-09-14] MEDS: DEXAMETHASONE 4 MG/1 ML VIAL IV SCH ×3 (00:53→23:27)
[2021-09-14 03:49] LABS: Basophils # 0.1 10*3/uL (0.0-0.2); Basophils % 0.3 % (0.0-0.8); Hematocrit 26.4 VOL% (42.0-52.0); Hemoglobin 8.3 GM/DL (14.0-18.0); Immature Granulocytes % 3.6 %; Immature Granulocytes Absolute 0.62 #; Lymphocytes # 1.1 10*3/uL (1.4-4.0); Lymphocytes % 6.2 % (21.2-54.2); Mean Corpuscular HGB Conc 31.4 GM/DL (32-36); Mean Corpuscular Volume 93.3 FL (87-102); Mean Platelet Volume 10.6 FL (9.6-12.0); Monocytes % 5.9 % (1.7-12.7); Platelet Count 392 T/CUMM (130-400); Red Blood Count 2.83 MC/CUMM (3.8-5.5); Red Cell Distribution Width 17.4 % (9.3-17.3); White Blood Count 17.2 T/CUMM (4-12)
[2021-09-14 04:09] LABS: Eosinophils 1 % (0-10); Hypochromia 1+; Lymphocytes 5 % (20-55); Microcytosis 1+; Platelet Estimate Adequate; Segmented Neutrophils 90 % (50-85); Total Cells Counted 100
[2021-09-14] MEDS: ALBUTEROL/IPRATROPIUM 3 ML NEB RESP TX SCH ×3 (07:12→18:12)
[2021-09-14] MEDS: THEOPHYLLINE ER (24 HR) 400 MG CAPSULE PO SCH (08:59)
[2021-09-14] MEDS: ASCORBIC ACID 500 MG TABLET PO SCH ×2 (08:59→21:49)
[2021-09-14] MEDS: DOCUSATE SODIUM 100 MG CAPSULE PO SCH ×2 (09:00→21:49)
[2021-09-14] MEDS: ASPIRIN CHEW 81 MG TABLET PO SCH (09:00)
[2021-09-14] MEDS: CHOLECALCIFEROL 1,000 UNIT TABLET PO SCH (09:00)
[2021-09-14] MEDS: FERROUS SULFATE 325 MG TABLET PO SCH (09:00)
[2021-09-14] MEDS: PANTOPRAZOLE 40 MG TABLET PO SCH (09:00)
[2021-09-14] MEDS: amLODIPine 10 MG TABLET PO SCH (09:01)
[2021-09-14] MEDS: POTASSIUM CHLORIDE 20 MEQ TABLET PO SCH (09:01)
[2021-09-14] MEDS: MAGNESIUM CHLORIDE 64 MG TABLET PO SCH (09:03)
[2021-09-14] MEDS: FLUTICASONE 50 MCG NASAL SPRAY 16 GM BOTTLE BOTH NARES SCH ×2 (09:04→21:48)
[2021-09-14] MEDS: POLYETHYLENE GLYCOL POWDER 17 GM PACK PO SCH ×2 (09:06→21:49)
[2021-09-14] MEDS: ENOXAPARIN 80 MG/0.8 ML SYRINGE SUBCUT SCH (11:23)
[2021-09-14] MEDS: CLORAZEPATE 3.75 MG TABLET PO PRN ×2 (12:47→21:50)
[2021-09-14] MEDS: ZALEPLON 5 MG CAPSULE PO SCH (21:48)
[2021-09-14] MEDS: ROSUVASTATIN 20 MG TABLET PO SCH (21:49)
[2021-09-15] MEDS: ALBUTEROL/IPRATROPIUM 3 ML NEB RESP TX SCH ×3 (08:20→19:35)
[2021-09-15] MEDS: amLODIPine 10 MG TABLET PO SCH (08:38)
[2021-09-15] MEDS: FERROUS SULFATE 325 MG TABLET PO SCH (08:38)
[2021-09-15] MEDS: ASPIRIN CHEW 81 MG TABLET PO SCH (08:38)
[2021-09-15] MEDS: PANTOPRAZOLE 40 MG TABLET PO SCH (08:39)
[2021-09-15] MEDS: ASCORBIC ACID 500 MG TABLET PO SCH ×2 (08:39→20:20)
[2021-09-15] MEDS: POTASSIUM CHLORIDE 20 MEQ TABLET PO SCH (08:39)
[2021-09-15] MEDS: DOCUSATE SODIUM 100 MG CAPSULE PO SCH ×2 (08:39→20:12)
[2021-09-15] MEDS: CHOLECALCIFEROL 1,000 UNIT TABLET PO SCH (08:39)
[2021-09-15] MEDS: THEOPHYLLINE ER (24 HR) 400 MG CAPSULE PO SCH (08:39)
[2021-09-15] MEDS: MAGNESIUM CHLORIDE 64 MG TABLET PO SCH (08:40)
[2021-09-15] MEDS: POLYETHYLENE GLYCOL POWDER 17 GM PACK PO SCH ×2 (08:41→20:12)
[2021-09-15] MEDS: FLUTICASONE 50 MCG NASAL SPRAY 16 GM BOTTLE BOTH NARES SCH ×2 (08:42→20:21)
[2021-09-15] MEDS: ENOXAPARIN 80 MG/0.8 ML SYRINGE SUBCUT SCH (11:41)
[2021-09-15] MEDS: DEXAMETHASONE 4 MG/1 ML VIAL IV SCH (11:41)
[2021-09-15] MEDS ORDERED: SODIUM CHLORIDE 0.65% NASAL SPRAY 45 ML BOTTLE BOTH NARES PRN (20:17)
[2021-09-15] MEDS: ZALEPLON 5 MG CAPSULE PO SCH (20:20)
[2021-09-15] MEDS: ROSUVASTATIN 20 MG TABLET PO SCH (20:20)
[2021-09-16] MEDS: ALBUTEROL/IPRATROPIUM 3 ML NEB RESP TX SCH ×3 (08:08→19:44)
[2021-09-16] MEDS: FLUTICASONE 50 MCG NASAL SPRAY 16 GM BOTTLE BOTH NARES SCH ×2 (08:26→21:37)
[2021-09-16] MEDS: DEXAMETHASONE 4 MG/1 ML VIAL IV SCH ×2 (08:27→21:27)
[2021-09-16] MEDS: PANTOPRAZOLE 40 MG TABLET PO SCH (08:28)
[2021-09-16] MEDS: MAGNESIUM CHLORIDE 64 MG TABLET PO SCH (08:28)
[2021-09-16] MEDS: DOCUSATE SODIUM 100 MG CAPSULE PO SCH ×2 (08:29→21:27)
[2021-09-16] MEDS: amLODIPine 10 MG TABLET PO SCH (08:29)
[2021-09-16] MEDS: CHOLECALCIFEROL 1,000 UNIT TABLET PO SCH (08:29)
[2021-09-16] MEDS: THEOPHYLLINE ER (24 HR) 400 MG CAPSULE PO SCH (08:29)
[2021-09-16] MEDS: ASCORBIC ACID 500 MG TABLET PO SCH ×2 (08:29→21:26)
[2021-09-16] MEDS: POTASSIUM CHLORIDE 20 MEQ TABLET PO SCH (08:29)
[2021-09-16] MEDS: ASPIRIN CHEW 81 MG TABLET PO SCH (08:29)
[2021-09-16] MEDS: FERROUS SULFATE 325 MG TABLET PO SCH (08:29)
[2021-09-16] MEDS: POLYETHYLENE GLYCOL POWDER 17 GM PACK PO SCH ×2 (08:30→21:27)
[2021-09-16] MEDS: ENOXAPARIN 80 MG/0.8 ML SYRINGE SUBCUT SCH (11:36)
[2021-09-16] MEDS: ROSUVASTATIN 20 MG TABLET PO SCH (21:26)
[2021-09-16] MEDS: OLANZapine 5 MG TABLET PO PRN (21:26)
[2021-09-16] MEDS: ZALEPLON 5 MG CAPSULE PO SCH (21:26)
[2021-09-17 04:59] LABS: Basophils # 0.1 10*3/uL (0.0-0.2); Basophils % 0.5 % (0.0-0.8); Eosinophils % 0.1 % (0.00-10.9); Hematocrit 27.2 VOL% (42.0-52.0); Hemoglobin 8.7 GM/DL (14.0-18.0); Immature Granulocytes % 5.4 %; Immature Granulocytes Absolute 0.84 #; Lymphocytes # 1.3 10*3/uL (1.4-4.0); Lymphocytes % 8.6 % (21.2-54.2); Mean Corpuscular Volume 92.2 FL (87-102); Mean Platelet Volume 10.4 FL (9.6-12.0); Monocytes % 3.4 % (1.7-12.7); Platelet Count 358 T/CUMM (130-400); Red Blood Count 2.95 MC/CUMM (3.8-5.5); Red Cell Distribution Width 17.2 % (9.3-17.3); White Blood Count 15.5 T/CUMM (4-12)
[2021-09-17 05:10] LABS: Calcium 8.4 MG/DL (8.5-10.1); Osmolality,Calculated 293.3 MOS/KG (273-304); Potassium 4.6 MMOL/L (3.5-5.1)
[2021-09-17 05:28] LABS: Hypochromia Slight; Lymphocytes 13 % (20-55); Microcytosis 1+; Myelocytes 2 %; Ovalocytes Slight; Segmented Neutrophils 83 % (50-85); Total Cells Counted 100
[2021-09-17] MEDS: ALBUTEROL/IPRATROPIUM 3 ML NEB RESP TX SCH ×3 (07:18→19:09)
[2021-09-17] MEDS: POTASSIUM CHLORIDE 20 MEQ TABLET PO SCH (08:12)
[2021-09-17] MEDS: ASCORBIC ACID 500 MG TABLET PO SCH ×2 (08:13→20:07)
[2021-09-17] MEDS: MAGNESIUM CHLORIDE 64 MG TABLET PO SCH (08:13)
[2021-09-17] MEDS: amLODIPine 10 MG TABLET PO SCH (08:13)
[2021-09-17] MEDS: CHOLECALCIFEROL 1,000 UNIT TABLET PO SCH (08:13)
[2021-09-17] MEDS: THEOPHYLLINE ER (24 HR) 400 MG CAPSULE PO SCH (08:13)
[2021-09-17] MEDS: DOCUSATE SODIUM 100 MG CAPSULE PO SCH ×2 (08:13→20:09)
[2021-09-17] MEDS: ASPIRIN CHEW 81 MG TABLET PO SCH (08:13)
[2021-09-17] MEDS: FERROUS SULFATE 325 MG TABLET PO SCH (08:13)
[2021-09-17] MEDS: PANTOPRAZOLE 40 MG TABLET PO SCH (08:14)
[2021-09-17] MEDS: DEXAMETHASONE 4 MG/1 ML VIAL IV SCH ×2 (08:14→20:07)
[2021-09-17] MEDS: FLUTICASONE 50 MCG NASAL SPRAY 16 GM BOTTLE BOTH NARES SCH ×2 (08:17→20:09)
[2021-09-17] MEDS: POLYETHYLENE GLYCOL POWDER 17 GM PACK PO SCH ×2 (08:18→20:09)
[2021-09-17] MEDS: ENOXAPARIN 80 MG/0.8 ML SYRINGE SUBCUT SCH (12:43)
[2021-09-17] MEDS: CLORAZEPATE 3.75 MG TABLET PO PRN (12:43)
[2021-09-17] MEDS: ZALEPLON 5 MG CAPSULE PO SCH (20:07)
[2021-09-17] MEDS: ROSUVASTATIN 20 MG TABLET PO SCH (20:07)
[2021-09-18] MEDS: ALBUTEROL/IPRATROPIUM 3 ML NEB RESP TX SCH ×3 (07:08→18:57)
[2021-09-18] MEDS: POTASSIUM CHLORIDE 20 MEQ TABLET PO SCH (08:35)
[2021-09-18] MEDS: FERROUS SULFATE 325 MG TABLET PO SCH (08:35)
[2021-09-18] MEDS: CHOLECALCIFEROL 1,000 UNIT TABLET PO SCH (08:35)
[2021-09-18] MEDS: ASCORBIC ACID 500 MG TABLET PO SCH ×2 (08:35→20:46)
[2021-09-18] MEDS: THEOPHYLLINE ER (24 HR) 400 MG CAPSULE PO SCH (08:36)
[2021-09-18] MEDS: DEXAMETHASONE 4 MG/1 ML VIAL IV SCH ×2 (08:36→20:46)
[2021-09-18] MEDS: ASPIRIN CHEW 81 MG TABLET PO SCH (08:36)
[2021-09-18] MEDS: MAGNESIUM CHLORIDE 64 MG TABLET PO SCH (08:36)
[2021-09-18] MEDS: DOCUSATE SODIUM 100 MG CAPSULE PO SCH ×2 (08:36→20:45)
[2021-09-18] MEDS: PANTOPRAZOLE 40 MG TABLET PO SCH (08:36)
[2021-09-18] MEDS: amLODIPine 10 MG TABLET PO SCH (08:36)
[2021-09-18] MEDS: POLYETHYLENE GLYCOL POWDER 17 GM PACK PO SCH ×2 (08:38→20:45)
[2021-09-18] MEDS: FLUTICASONE 50 MCG NASAL SPRAY 16 GM BOTTLE BOTH NARES SCH ×2 (08:38→20:50)
[2021-09-18] MEDS: ENOXAPARIN 80 MG/0.8 ML SYRINGE SUBCUT SCH (12:39)
[2021-09-18] MEDS: ZALEPLON 5 MG CAPSULE PO SCH (20:46)
[2021-09-18] MEDS: ROSUVASTATIN 20 MG TABLET PO SCH (20:46)
[2021-09-19] MEDS: ACETAMINOPHEN 325 MG TABLET PO PRN (00:25)
[2021-09-19 03:37] LABS: Basophils % 0.2 % (0.0-0.8); Eosinophils # 0.1 10*3/uL (0.0-0.87); Eosinophils % 0.4 % (0.00-10.9); Hemoglobin 8.6 GM/DL (14.0-18.0); Immature Granulocytes % 5.6 %; Immature Granulocytes Absolute 0.93 #; Lymphocytes # 1.1 10*3/uL (1.4-4.0); Lymphocytes % 6.7 % (21.2-54.2); Mean Corpuscular HGB Conc 31.9 GM/DL (32-36); Mean Corpuscular Volume 91.2 FL (87-102); Mean Platelet Volume 10.2 FL (9.6-12.0); Monocytes % 4.3 % (1.7-12.7); Neutrophils % 82.8 % (38.7-73.9); Platelet Count 348 T/CUMM (130-400); Red Blood Count 2.96 MC/CUMM (3.8-5.5); Red Cell Distribution Width 17.3 % (9.3-17.3); White Blood Count 16.7 T/CUMM (4-12)
[2021-09-19 03:57] LABS: Band Neutrophils 1 % (0-10); Eosinophils 1 % (0-10); Hypochromia 1+; Lymphocytes 9 % (20-55); Microcytosis 1+; Platelet Estimate Adequate; Segmented Neutrophils 80 % (50-85); Total Cells Counted 100
[2021-09-19 03:58] LABS: Ovalocytes Slight
[2021-09-19 04:03] LABS: Albumin 2.1 G/DL (3.4-5.0); Bilirubin,Total 0.4 MG/DL (0.20-1.00); Calcium 8.2 MG/DL (8.5-10.1); Osmolality,Calculated 295.3 MOS/KG (273-304); Potassium 4.7 MMOL/L (3.5-5.1); Total Protein 5.6 G/DL (6.4-8.2)
[2021-09-19] MEDS: ALBUTEROL/IPRATROPIUM 3 ML NEB RESP TX SCH ×3 (07:45→18:39)
[2021-09-19] MEDS: POTASSIUM CHLORIDE 20 MEQ TABLET PO SCH (08:55)
[2021-09-19] MEDS: DOCUSATE SODIUM 100 MG CAPSULE PO SCH ×2 (08:55→21:22)
[2021-09-19] MEDS: CHOLECALCIFEROL 1,000 UNIT TABLET PO SCH (08:55)
[2021-09-19] MEDS: MAGNESIUM CHLORIDE 64 MG TABLET PO SCH (08:56)
[2021-09-19] MEDS: ASCORBIC ACID 500 MG TABLET PO SCH ×2 (08:56→21:22)
[2021-09-19] MEDS: PANTOPRAZOLE 40 MG TABLET PO SCH (08:56)
[2021-09-19] MEDS: FERROUS SULFATE 325 MG TABLET PO SCH (08:56)
[2021-09-19] MEDS: ASPIRIN CHEW 81 MG TABLET PO SCH (08:56)
[2021-09-19] MEDS: THEOPHYLLINE ER (24 HR) 400 MG CAPSULE PO SCH (08:56)
[2021-09-19] MEDS: amLODIPine 10 MG TABLET PO SCH (08:56)
[2021-09-19] MEDS: POLYETHYLENE GLYCOL POWDER 17 GM PACK PO SCH ×2 (08:58→21:22)
[2021-09-19] MEDS: FLUTICASONE 50 MCG NASAL SPRAY 16 GM BOTTLE BOTH NARES SCH ×2 (09:00→21:22)
[2021-09-19] MEDS ORDERED: DEXAMETHASONE 4 MG/1 ML VIAL IV SCH (09:00)
[2021-09-19] MEDS: ENOXAPARIN 40 MG/0.4 ML SYRINGE SUBCUT SCH (10:54)
[2021-09-19] MEDS: ROSUVASTATIN 20 MG TABLET PO SCH (21:22)
[2021-09-19] MEDS: ZALEPLON 5 MG CAPSULE PO SCH (21:22)
[2021-09-20 04:24] LABS: Basophils # 0.1 10*3/uL (0.0-0.2); Basophils % 0.5 % (0.0-0.8); Eosinophils % 5.4 % (0.00-10.9); Hematocrit 27.9 VOL% (42.0-52.0); Hemoglobin 8.7 GM/DL (14.0-18.0); Immature Granulocytes % 4.6 %; Immature Granulocytes Absolute 0.82 #; Lymphocytes # 2.8 10*3/uL (1.4-4.0); Lymphocytes % 15.5 % (21.2-54.2); Mean Corpuscular HGB Conc 31.2 GM/DL (32-36); Mean Corpuscular Volume 93.3 FL (87-102); Mean Platelet Volume 10.1 FL (9.6-12.0); Monocytes % 9.4 % (1.7-12.7); Neutrophils % 64.6 % (38.7-73.9); Platelet Count 337 T/CUMM (130-400); Red Blood Count 2.99 MC/CUMM (3.8-5.5); Red Cell Distribution Width 17.8 % (9.3-17.3); White Blood Count 17.8 T/CUMM (4-12)
[2021-09-20 04:36] LABS: Calcium 8.4 MG/DL (8.5-10.1); Osmolality,Calculated 298.8 MOS/KG (273-304); Potassium 4.4 MMOL/L (3.5-5.1)
[2021-09-20 04:43] LABS: Eosinophils 7 % (0-10); Lymphocytes 18 % (20-55); Segmented Neutrophils 70 % (50-85); Total Cells Counted 100
[2021-09-20 04:44] LABS: Hypochromia 1+; Microcytosis 1+; Ovalocytes Few
[2021-09-20 04:45] LABS: Platelet Estimate Normal
[2021-09-20] MEDS: ALBUTEROL/IPRATROPIUM 3 ML NEB RESP TX SCH ×2 (07:45→13:56)
[2021-09-20] MEDS: POLYETHYLENE GLYCOL POWDER 17 GM PACK PO SCH ×2 (09:03→23:13)
[2021-09-20] MEDS: ENOXAPARIN 40 MG/0.4 ML SYRINGE SUBCUT SCH (09:23)
[2021-09-20] MEDS: ASPIRIN CHEW 81 MG TABLET PO SCH (09:32)
[2021-09-20] MEDS: MAGNESIUM CHLORIDE 64 MG TABLET PO SCH (09:32)
[2021-09-20] MEDS: THEOPHYLLINE ER (24 HR) 400 MG CAPSULE PO SCH (09:32)
[2021-09-20] MEDS: POTASSIUM CHLORIDE 20 MEQ TABLET PO SCH (09:32)
[2021-09-20] MEDS: PANTOPRAZOLE 40 MG TABLET PO SCH (09:32)
[2021-09-20] MEDS: amLODIPine 10 MG TABLET PO SCH (09:32)
[2021-09-20] MEDS: CHOLECALCIFEROL 1,000 UNIT TABLET PO SCH (09:33)
[2021-09-20] MEDS: DOCUSATE SODIUM 100 MG CAPSULE PO SCH ×2 (09:33→23:11)
[2021-09-20] MEDS: ASCORBIC ACID 500 MG TABLET PO SCH ×2 (09:33→21:55)
[2021-09-20] MEDS: FERROUS SULFATE 325 MG TABLET PO SCH (09:34)
[2021-09-20] MEDS: predniSONE 20 MG TABLET PO SCH (09:34)
[2021-09-20] MEDS: FLUTICASONE 50 MCG NASAL SPRAY 16 GM BOTTLE BOTH NARES SCH ×2 (09:34→21:55)
[2021-09-20] MEDS: BENZONATATE 100 MG CAPSULE PO PRN (13:17)
[2021-09-20] MEDS: ROSUVASTATIN 20 MG TABLET PO SCH (21:55)
[2021-09-20] MEDS: ZALEPLON 5 MG CAPSULE PO SCH (21:55)
[2021-09-21] MEDS: ALBUTEROL/IPRATROPIUM 3 ML NEB RESP TX SCH ×4 (01:48→19:36)
[2021-09-21] MEDS: MAGNESIUM CHLORIDE 64 MG TABLET PO SCH (09:32)
[2021-09-21] MEDS: THEOPHYLLINE ER (24 HR) 400 MG CAPSULE PO SCH (09:32)
[2021-09-21] MEDS: predniSONE 20 MG TABLET PO SCH (09:32)
[2021-09-21] MEDS: POTASSIUM CHLORIDE 20 MEQ TABLET PO SCH (09:32)
[2021-09-21] MEDS: DOCUSATE SODIUM 100 MG CAPSULE PO SCH ×2 (09:33→21:25)
[2021-09-21] MEDS: amLODIPine 10 MG TABLET PO SCH (09:33)
[2021-09-21] MEDS: FLUTICASONE 50 MCG NASAL SPRAY 16 GM BOTTLE BOTH NARES SCH ×2 (09:33→21:40)
[2021-09-21] MEDS: ASPIRIN CHEW 81 MG TABLET PO SCH (09:33)
[2021-09-21] MEDS: PANTOPRAZOLE 40 MG TABLET PO SCH (09:33)
[2021-09-21] MEDS: FERROUS SULFATE 325 MG TABLET PO SCH (09:33)
[2021-09-21] MEDS: CHOLECALCIFEROL 1,000 UNIT TABLET PO SCH (09:33)
[2021-09-21] MEDS: ASCORBIC ACID 500 MG TABLET PO SCH ×2 (09:33→21:39)
[2021-09-21] MEDS: hydrALAZINE 25 MG TABLET PO SCH ×2 (10:23→21:40)
[2021-09-21] MEDS: ENOXAPARIN 40 MG/0.4 ML SYRINGE SUBCUT SCH (10:24)
[2021-09-21] MEDS: POLYETHYLENE GLYCOL POWDER 17 GM PACK PO SCH ×2 (13:13→21:25)
[2021-09-21] MEDS: ZALEPLON 5 MG CAPSULE PO SCH (21:40)
[2021-09-21] MEDS: ROSUVASTATIN 20 MG TABLET PO SCH (21:40)
[2021-09-21] MEDS: MELATONIN 3 MG TABLET PO PRN (21:40)
[2021-09-22] MEDS: ALBUTEROL/IPRATROPIUM 3 ML NEB RESP TX SCH ×3 (07:15→19:42)
[2021-09-22] MEDS: hydrALAZINE 25 MG TABLET PO SCH ×2 (09:49→20:46)
[2021-09-22] MEDS: ASPIRIN CHEW 81 MG TABLET PO SCH (09:49)
[2021-09-22] MEDS: FERROUS SULFATE 325 MG TABLET PO SCH (09:50)
[2021-09-22] MEDS: DOCUSATE SODIUM 100 MG CAPSULE PO SCH ×2 (09:50→20:45)
[2021-09-22] MEDS: FLUTICASONE 50 MCG NASAL SPRAY 16 GM BOTTLE BOTH NARES SCH ×2 (09:51→20:46)
[2021-09-22] MEDS: POTASSIUM CHLORIDE 20 MEQ TABLET PO SCH (09:51)
[2021-09-22] MEDS: ENOXAPARIN 40 MG/0.4 ML SYRINGE SUBCUT SCH (09:51)
[2021-09-22] MEDS: predniSONE 20 MG TABLET PO SCH (09:54)
[2021-09-22] MEDS: PANTOPRAZOLE 40 MG TABLET PO SCH (09:54)
[2021-09-22] MEDS: MAGNESIUM CHLORIDE 64 MG TABLET PO SCH (09:54)
[2021-09-22] MEDS: THEOPHYLLINE ER (24 HR) 400 MG CAPSULE PO SCH (09:54)
[2021-09-22] MEDS: CHOLECALCIFEROL 1,000 UNIT TABLET PO SCH (09:55)
[2021-09-22] MEDS: ASCORBIC ACID 500 MG TABLET PO SCH ×2 (09:55→20:46)
[2021-09-22] MEDS: amLODIPine 10 MG TABLET PO SCH (09:56)
[2021-09-22 10:26] LABS: Basophils # 0.1 10*3/uL (0.0-0.2); Basophils % 0.5 % (0.0-0.8); Eosinophils # 1.6 10*3/uL (0.0-0.87); Eosinophils % 7.3 % (0.00-10.9); Hematocrit 31.5 VOL% (42.0-52.0); Immature Granulocytes % 4.5 %; Lymphocytes # 2.7 10*3/uL (1.4-4.0); Lymphocytes % 12.1 % (21.2-54.2); Mean Corpuscular HGB Conc 31.7 GM/DL (32-36); Mean Corpuscular Volume 92.1 FL (87-102); Mean Platelet Volume 10.2 FL (9.6-12.0); Monocytes % 8.1 % (1.7-12.7); Neutrophils % 67.5 % (38.7-73.9); Platelet Count 355 T/CUMM (130-400); Red Blood Count 3.42 MC/CUMM (3.8-5.5); Red Cell Distribution Width 17.9 % (9.3-17.3)
[2021-09-22 10:48] LABS: Calcium 8.9 MG/DL (8.5-10.1); Potassium 4.6 MMOL/L (3.5-5.1)
[2021-09-22 11:56] LABS: Eosinophils 6 % (0-10); Lymphocytes 8 % (20-55); Segmented Neutrophils 75 % (50-85); Total Cells Counted 100
[2021-09-22 11:57] LABS: Atypical Lymphocytes Few; Microcytosis Slight; Ovalocytes Few; Platelet Estimate Normal; Polychromasia Slight
[2021-09-22] MEDS: POLYETHYLENE GLYCOL POWDER 17 GM PACK PO SCH ×2 (14:09→20:45)
[2021-09-22] MEDS: ROSUVASTATIN 20 MG TABLET PO SCH (20:45)
[2021-09-22] MEDS: ZALEPLON 5 MG CAPSULE PO SCH (20:46)
[2021-09-23 04:07] LABS: Barbiturates Screen,Urine Negative (Negative); Benzodiazepines Screen,Urine Negative (Negative); Cannabinoid Screen,Urine Negative (Negative); Opiate Screen,Urine Negative (Negative); Phencyclidine Screen,Urine Negative (Negative)
[2021-09-23] MEDS: ALBUTEROL/IPRATROPIUM 3 ML NEB RESP TX SCH ×3 (07:20→19:17)
[2021-09-23] MEDS: ASCORBIC ACID 500 MG TABLET PO SCH ×2 (10:50→20:16)
[2021-09-23] MEDS: MAGNESIUM CHLORIDE 64 MG TABLET PO SCH (10:50)
[2021-09-23] MEDS: CHOLECALCIFEROL 1,000 UNIT TABLET PO SCH (10:50)
[2021-09-23] MEDS: ASPIRIN CHEW 81 MG TABLET PO SCH (10:51)
[2021-09-23] MEDS: DOCUSATE SODIUM 100 MG CAPSULE PO SCH ×2 (10:51→20:17)
[2021-09-23] MEDS: THEOPHYLLINE ER (24 HR) 400 MG CAPSULE PO SCH (10:51)
[2021-09-23] MEDS: POTASSIUM CHLORIDE 20 MEQ TABLET PO SCH (10:52)
[2021-09-23] MEDS: FLUTICASONE 50 MCG NASAL SPRAY 16 GM BOTTLE BOTH NARES SCH ×2 (10:52→20:17)
[2021-09-23] MEDS: FERROUS SULFATE 325 MG TABLET PO SCH (10:52)
[2021-09-23] MEDS: amLODIPine 10 MG TABLET PO SCH (10:53)
[2021-09-23] MEDS: POLYETHYLENE GLYCOL POWDER 17 GM PACK PO SCH ×2 (10:53→20:17)
[2021-09-23] MEDS: ENOXAPARIN 40 MG/0.4 ML SYRINGE SUBCUT SCH (10:53)
[2021-09-23] MEDS: predniSONE 20 MG TABLET PO SCH (10:54)
[2021-09-23] MEDS: PANTOPRAZOLE 40 MG TABLET PO SCH (10:54)
[2021-09-23 12:26] LABS: Bacteria,Urine Occasional /HPF (Few); Mucus,Urine Occasional /LPF (Occasional); Squamous Epithelial Cell,Urine Occasional /HPF (0-10)
[2021-09-23 12:37] LABS: Urine Appearance Clear (Clear); Urine Color Light Yellow (Yellow); Urine pH 5.5 (4.5-8.0)
[2021-09-23 12:38] LABS: Bilirubin,Urine Negative (Negative); Blood, Urine Negative (Negative); Glucose,Urine (UA) Negative (Negative); Ketones,Urine Negative (Negative); Nitrite,Urine Negative (Negative); Protein,Urine 100 mg/dL (Negative); Urine Urobilinogen < 2.0 eU/dL (<2.0)
[2021-09-23] MEDS: hydrALAZINE 25 MG TABLET PO SCH ×3 (12:47→20:16)
[2021-09-23] MEDS: ROSUVASTATIN 20 MG TABLET PO SCH (20:16)
[2021-09-23] MEDS: ZALEPLON 5 MG CAPSULE PO SCH (20:16)
[2021-09-24 05:17] LABS: Basophils # 0.1 10*3/uL (0.0-0.2); Basophils % 0.5 % (0.0-0.8); Eosinophils # 0.1 10*3/uL (0.0-0.87); Eosinophils % 0.8 % (0.00-10.9); Hematocrit 29.7 VOL% (42.0-52.0); Hemoglobin 9.3 GM/DL (14.0-18.0); Immature Granulocytes % 4.4 %; Immature Granulocytes Absolute 0.67 #; Lymphocytes # 1.5 10*3/uL (1.4-4.0); Lymphocytes % 9.9 % (21.2-54.2); Mean Corpuscular HGB Conc 31.3 GM/DL (32-36); Mean Corpuscular Volume 93.1 FL (87-102); Mean Platelet Volume 10.5 FL (9.6-12.0); Monocytes % 6.3 % (1.7-12.7); Neutrophils % 78.1 % (38.7-73.9); Platelet Count 295 T/CUMM (130-400); Red Blood Count 3.19 MC/CUMM (3.8-5.5); Red Cell Distribution Width 17.9 % (9.3-17.3); White Blood Count 15.4 T/CUMM (4-12)
[2021-09-24 05:38] LABS: Band Neutrophils 1 % (0-10); Eosinophils 1 % (0-10); Lymphocytes 9 % (20-55); Metamyelocytes 1 %; Microcytosis 1+; Segmented Neutrophils 80 % (50-85); Total Cells Counted 100
[2021-09-24 05:39] LABS: Hypochromia Slight; Ovalocytes Few
[2021-09-24 05:50] LABS: Calcium 8.8 MG/DL (8.5-10.1); Osmolality,Calculated 294.1 MOS/KG (273-304); Potassium 4.9 MMOL/L (3.5-5.1)
[2021-09-24] MEDS: ALBUTEROL/IPRATROPIUM 3 ML NEB RESP TX SCH ×3 (07:43→19:51)
[2021-09-24] MEDS: MAGNESIUM CHLORIDE 64 MG TABLET PO SCH (09:33)
[2021-09-24] MEDS: predniSONE 20 MG TABLET PO SCH (09:33)
[2021-09-24] MEDS: ASCORBIC ACID 500 MG TABLET PO SCH ×2 (09:33→21:00)
[2021-09-24] MEDS: DOCUSATE SODIUM 100 MG CAPSULE PO SCH ×2 (09:34→21:00)
[2021-09-24] MEDS: POTASSIUM CHLORIDE 20 MEQ TABLET PO SCH (09:34)
[2021-09-24] MEDS: PANTOPRAZOLE 40 MG TABLET PO SCH (09:34)
[2021-09-24] MEDS: CHOLECALCIFEROL 1,000 UNIT TABLET PO SCH (09:34)
[2021-09-24] MEDS: ASPIRIN CHEW 81 MG TABLET PO SCH (09:34)
[2021-09-24] MEDS: FERROUS SULFATE 325 MG TABLET PO SCH (09:34)
[2021-09-24] MEDS: POLYETHYLENE GLYCOL POWDER 17 GM PACK PO SCH ×2 (09:35→21:01)
[2021-09-24] MEDS: amLODIPine 10 MG TABLET PO SCH (09:35)
[2021-09-24] MEDS: ENOXAPARIN 40 MG/0.4 ML SYRINGE SUBCUT SCH (09:36)
[2021-09-24] MEDS: THEOPHYLLINE ER (24 HR) 400 MG CAPSULE PO SCH (09:36)
[2021-09-24] MEDS: FLUTICASONE 50 MCG NASAL SPRAY 16 GM BOTTLE BOTH NARES SCH ×2 (09:37→21:01)
[2021-09-24] MEDS: hydrALAZINE 25 MG TABLET PO SCH ×3 (09:42→21:00)
[2021-09-24 13:29] LABS: Calcium 8.9 MG/DL (8.5-10.1); Osmolality,Calculated 296.1 MOS/KG (273-304)
[2021-09-24] MEDS: ACETAMINOPHEN 325 MG TABLET PO PRN (16:33)
[2021-09-24] MEDS: ROSUVASTATIN 20 MG TABLET PO SCH (21:00)
[2021-09-24] MEDS: ZALEPLON 5 MG CAPSULE PO SCH (21:00)
[2021-09-25 06:00] LABS: Calcium 8.9 MG/DL (8.5-10.1); Osmolality,Calculated 291.3 MOS/KG (273-304); Potassium 4.4 MMOL/L (3.5-5.1)
[2021-09-25] MEDS: ALBUTEROL/IPRATROPIUM 3 ML NEB RESP TX SCH ×3 (07:06→19:05)
[2021-09-25 07:18] LABS: Basophils # 0.1 10*3/uL (0.0-0.2); Basophils % 0.3 % (0.0-0.8); Eosinophils # 1.1 10*3/uL (0.0-0.87); Eosinophils % 5.7 % (0.00-10.9); Hematocrit 30.3 VOL% (42.0-52.0); Hemoglobin 9.6 GM/DL (14.0-18.0); Immature Granulocytes % 3.3 %; Lymphocytes # 2.8 10*3/uL (1.4-4.0); Lymphocytes % 15.1 % (21.2-54.2); Mean Corpuscular HGB Conc 31.7 GM/DL (32-36); Mean Corpuscular Volume 91.5 FL (87-102); Mean Platelet Volume 10.4 FL (9.6-12.0); Neutrophils % 66.6 % (38.7-73.9); Platelet Count 336 T/CUMM (130-400); Red Blood Count 3.31 MC/CUMM (3.8-5.5); Red Cell Distribution Width 18.1 % (9.3-17.3); White Blood Count 18.4 T/CUMM (4-12)
[2021-09-25 07:44] LABS: Eosinophils 7 % (0-10); Hypochromia 1+; Lymphocytes 17 % (20-55); Microcytosis 1+; Platelet Estimate Adequate; Segmented Neutrophils 65 % (50-85); Total Cells Counted 100
[2021-09-25] MEDS: MAGNESIUM CHLORIDE 64 MG TABLET PO SCH (09:35)
[2021-09-25] MEDS: THEOPHYLLINE ER (24 HR) 400 MG CAPSULE PO SCH (09:36)
[2021-09-25] MEDS: ASCORBIC ACID 500 MG TABLET PO SCH ×2 (09:36→20:47)
[2021-09-25] MEDS: predniSONE 20 MG TABLET PO SCH (09:36)
[2021-09-25] MEDS: FERROUS SULFATE 325 MG TABLET PO SCH (09:36)
[2021-09-25] MEDS: CHOLECALCIFEROL 1,000 UNIT TABLET PO SCH (09:36)
[2021-09-25] MEDS: DOCUSATE SODIUM 100 MG CAPSULE PO SCH ×2 (09:36→20:47)
[2021-09-25] MEDS: ASPIRIN CHEW 81 MG TABLET PO SCH (09:36)
[2021-09-25] MEDS: PANTOPRAZOLE 40 MG TABLET PO SCH (09:37)
[2021-09-25] MEDS: POLYETHYLENE GLYCOL POWDER 17 GM PACK PO SCH ×2 (09:37→20:48)
[2021-09-25] MEDS: amLODIPine 10 MG TABLET PO SCH (09:37)
[2021-09-25] MEDS: ENOXAPARIN 40 MG/0.4 ML SYRINGE SUBCUT SCH (09:37)
[2021-09-25] MEDS: FLUTICASONE 50 MCG NASAL SPRAY 16 GM BOTTLE BOTH NARES SCH ×2 (09:37→20:48)
[2021-09-25] MEDS: hydrALAZINE 25 MG TABLET PO SCH ×3 (09:37→20:47)
[2021-09-25] MEDS: ROSUVASTATIN 20 MG TABLET PO SCH (20:47)
[2021-09-25] MEDS: ZALEPLON 5 MG CAPSULE PO SCH (20:47)
[2021-09-26] MEDS: ALBUTEROL/IPRATROPIUM 3 ML NEB RESP TX SCH ×3 (07:24→19:42)
[2021-09-26] MEDS: THEOPHYLLINE ER (24 HR) 400 MG CAPSULE PO SCH (09:22)
[2021-09-26] MEDS: MAGNESIUM CHLORIDE 64 MG TABLET PO SCH (09:22)
[2021-09-26] MEDS: hydrALAZINE 25 MG TABLET PO SCH ×3 (09:22→21:35)
[2021-09-26] MEDS: ASCORBIC ACID 500 MG TABLET PO SCH ×2 (09:23→21:34)
[2021-09-26] MEDS: CHOLECALCIFEROL 1,000 UNIT TABLET PO SCH (09:23)
[2021-09-26] MEDS: ASPIRIN CHEW 81 MG TABLET PO SCH (09:23)
[2021-09-26] MEDS: DOCUSATE SODIUM 100 MG CAPSULE PO SCH ×2 (09:23→21:34)
[2021-09-26] MEDS: PANTOPRAZOLE 40 MG TABLET PO SCH (09:23)
[2021-09-26] MEDS: predniSONE 20 MG TABLET PO SCH (09:23)
[2021-09-26] MEDS: ENOXAPARIN 40 MG/0.4 ML SYRINGE SUBCUT SCH (09:23)
[2021-09-26] MEDS: FERROUS SULFATE 325 MG TABLET PO SCH (09:23)
[2021-09-26] MEDS: amLODIPine 10 MG TABLET PO SCH (09:23)
[2021-09-26] MEDS: POLYETHYLENE GLYCOL POWDER 17 GM PACK PO SCH ×2 (10:35→21:39)
[2021-09-26] MEDS: FLUTICASONE 50 MCG NASAL SPRAY 16 GM BOTTLE BOTH NARES SCH ×2 (10:36→21:34)
[2021-09-26] MEDS: carvediloL 6.25 MG TABLET PO SCH ×2 (10:37→21:35)
[2021-09-26] MEDS: BENZONATATE 100 MG CAPSULE PO PRN (21:35)
[2021-09-26] MEDS: ROSUVASTATIN 20 MG TABLET PO SCH (21:35)
[2021-09-26] MEDS: MELATONIN 3 MG TABLET PO PRN (21:35)
[2021-09-27] MEDS: ALBUTEROL/IPRATROPIUM 3 ML NEB RESP TX SCH ×3 (07:10→19:20)
[2021-09-27] MEDS: ASPIRIN CHEW 81 MG TABLET PO SCH (08:11)
[2021-09-27] MEDS: ENOXAPARIN 40 MG/0.4 ML SYRINGE SUBCUT SCH (08:11)
[2021-09-27] MEDS: DOCUSATE SODIUM 100 MG CAPSULE PO SCH ×2 (08:11→21:09)
[2021-09-27] MEDS: amLODIPine 10 MG TABLET PO SCH (08:11)
[2021-09-27] MEDS: hydrALAZINE 25 MG TABLET PO SCH ×3 (08:12→21:09)
[2021-09-27] MEDS: CHOLECALCIFEROL 1,000 UNIT TABLET PO SCH (08:12)
[2021-09-27] MEDS: THEOPHYLLINE ER (24 HR) 400 MG CAPSULE PO SCH (08:12)
[2021-09-27] MEDS: FERROUS SULFATE 325 MG TABLET PO SCH (08:12)
[2021-09-27] MEDS: ASCORBIC ACID 500 MG TABLET PO SCH ×2 (08:12→21:09)
[2021-09-27] MEDS: carvediloL 6.25 MG TABLET PO SCH (08:12)
[2021-09-27] MEDS: PANTOPRAZOLE 40 MG TABLET PO SCH (08:12)
[2021-09-27] MEDS: predniSONE 20 MG TABLET PO SCH (08:12)
[2021-09-27] MEDS: MAGNESIUM CHLORIDE 64 MG TABLET PO SCH (08:12)
[2021-09-27] MEDS: POLYETHYLENE GLYCOL POWDER 17 GM PACK PO SCH ×2 (08:40→21:10)
[2021-09-27] MEDS: FLUTICASONE 50 MCG NASAL SPRAY 16 GM BOTTLE BOTH NARES SCH ×2 (08:40→21:09)
[2021-09-27] MEDS ORDERED: PHENYLEPHRINE DRIP 40 MG/250 ML PREMIX IV ONE (08:45)
[2021-09-27] MEDS ORDERED: POTASSIUM CHLORIDE RIDER 20 MEQ/100 ML PREMIX IV ONE (08:45)
[2021-09-27] MEDS ORDERED: SODIUM BICARBONATE 50 MEQ/50 ML VIAL IV ONE (08:45)
[2021-09-27] MEDS ORDERED: NITROPRUSSIDE 50 MG/2 ML VIAL ONE (08:45)
[2021-09-27] MEDS ORDERED: CALCIUM CHLORIDE 1,000 MG/10 ML SYRINGE IV ONE (08:46)
[2021-09-27] MEDS: ROSUVASTATIN 20 MG TABLET PO SCH (21:09)
[2021-09-27] MEDS: carvediloL 12.5 MG TABLET PO SCH (21:09)
[2021-09-28] MEDS: ALBUTEROL/IPRATROPIUM 3 ML NEB RESP TX SCH (07:12)
[2021-09-28 07:58] LABS: Calcium 8.7 MG/DL (8.5-10.1); Potassium 3.8 MMOL/L (3.5-5.1)
[2021-09-28] MEDS: POLYETHYLENE GLYCOL POWDER 17 GM PACK PO SCH (09:18)
[2021-09-28] MEDS: ASPIRIN CHEW 81 MG TABLET PO SCH (09:19)
[2021-09-28] MEDS: hydrALAZINE 25 MG TABLET PO SCH (09:19)
[2021-09-28] MEDS: DOCUSATE SODIUM 100 MG CAPSULE PO SCH (09:20)
[2021-09-28] MEDS: FERROUS SULFATE 325 MG TABLET PO SCH (09:20)
[2021-09-28] MEDS: carvediloL 12.5 MG TABLET PO SCH (09:20)
[2021-09-28] MEDS: FLUTICASONE 50 MCG NASAL SPRAY 16 GM BOTTLE BOTH NARES SCH (09:21)
[2021-09-28] MEDS: amLODIPine 10 MG TABLET PO SCH (09:22)
[2021-09-28] MEDS: PANTOPRAZOLE 40 MG TABLET PO SCH (09:22)
[2021-09-28] MEDS: MAGNESIUM CHLORIDE 64 MG TABLET PO SCH (09:22)
[2021-09-28] MEDS: predniSONE 20 MG TABLET PO SCH (09:22)
[2021-09-28] MEDS: ENOXAPARIN 40 MG/0.4 ML SYRINGE SUBCUT SCH (09:22)
[2021-09-28] MEDS: ASCORBIC ACID 500 MG TABLET PO SCH (09:23)
[2021-09-28] MEDS: THEOPHYLLINE ER (24 HR) 400 MG CAPSULE PO SCH (09:23)
[2021-09-28] MEDS: CHOLECALCIFEROL 1,000 UNIT TABLET PO SCH (09:23)
[2021-09-28 11:49] VITALS: BP 146/57
== END 2021-09-28 12:37 | disposition swing bed (61) | DRG 177 ==
LOC: SUATTDRO 21:27 → N.5E 21:27 → N.CC 07-30 16:23 → N.5E 09-20 16:27
PROVIDERS: ADMIT Internal Medicine; ATTEND Internal Medicine